=== PATIENT | female | born 1955 | race Caucasian/White ===

== ENCOUNTER 2018-11-30 13:16 | Inpatient (IN) | payer MEDICARE, MEDICAID ==
--- NOTE | 2018-11-30 13:35 | ED ---
Psychiatric Complaint - HPI Summary HPI Summary: Pt is a 63 y/o female brought in by police on a 945 who presents to the ED c/o possible SI. She was sent here by her therapist, however no information was given by the therapist or police regarding the reason for transport to the ED. Pt is tearful and repeats I didnt do anything wrong. As per pt she isnt coping with various medical and personal issues in her life. Her therapist felt like she needed an evaluation because she made a mistake and said something wrong to her therapist. Pt denies any SI or HI. She states she has not eaten today but denies any nausea. Pt has multiple personalities and she states these have never been figured out in therapy. As per note from pts therapist, pt voiced SI to both her and the pts daughter. She has a hx of SI and self-harm, however she has no prior suicide attempts. Pts daughter will come to the ED. She takes Xanax PRN. She was hospitalized for psychiatric reasons on 01/28/18. As per medical records the pt has a difficult time with the activities of daily living. PMHx OCD, dissociative identity disorder, PTSD, somatization disorder, panic attacks. Pt is a level 5 caveat due to her mental status. - History Of Current Complaint Chief Complaint: EDMentalHealth Time Seen by Provider: 11/30/18 13:26 Hx Obtained From: Patient, Medical Records Hx From Patient Unobtainable Due To: Other - Mental status Onset/Duration: Gradual Onset, Still Present Timing: Constant Aggravating Factor(s): Nothing Alleviating Factor(s): Nothing Associated Signs And Symptoms: Positive: Appetite Change - not eating today Related History: Positive For: Prior Psychiatric Issues Has Suicidal: Denies: Thoughts, Has Prior Attempt(s) Has Homicidal: Denies: Thoughts - Allergies/Home Medications Allergies/Adverse Reactions: Allergies Allergy/AdvReac Type Severity Reaction Status Date / Time acetaminophen [From Percocet] Allergy Unknown Verified 11/30/18 14:08 Reaction Details amitriptyline [From Elavil] Allergy Unknown Verified 11/30/18 13:50 Reaction Details azithromycin [From Zithromax] Allergy Rash Verified 11/30/18 13:54 bupropion Allergy Hives Verified 11/30/18 14:03 [From Wellbutrin SR] buspirone [From BuSpar] Allergy Unknown Verified 11/30/18 13:54 Reaction Details cefuroxime Allergy Eyes Verified 11/30/18 14:08 Itchy/Swollen/Red/Watery chondroitin sulfate A Allergy Hives Verified 11/30/18 13:58 [From Osteo Bi-Flex] citalopram [From Celexa] Allergy Unknown Verified 11/30/18 14:08 Reaction Details codeine Allergy Hives Verified 11/30/18 14:07 dexlansoprazole Allergy Nausea Verified 11/30/18 13:49 [From Dexilant] divalproex sodium Allergy Unknown Verified 11/30/18 14:08 [From Depakote] Reaction Details doxycycline Allergy Unknown Verified 11/30/18 14:05 Reaction Details duloxetine [From Cymbalta] Allergy Hives Verified 11/30/18 14:07 erythromycin base Allergy Unknown Verified 11/30/18 14:07 Reaction Details escitalopram [From Lexapro] Allergy Itching Verified 11/30/18 13:57 esomeprazole [From Nexium] Allergy Stomach Verified 11/30/18 13:58 Cramps fluoxetine [From Prozac] Allergy Hives Verified 11/30/18 14:08 glucosamine Allergy Hives Verified 11/30/18 13:58 [From Osteo Bi-Flex] guaifenesin [From Mucinex] Allergy Nausea Verified 11/30/18 13:58 methocarbamol [From Robaxin] Allergy Hives Verified 11/30/18 14:01 metronidazole Allergy Unknown Verified 11/30/18 14:05 Reaction Details mometasone furoate Allergy Difficulty Verified 11/30/18 14:12 [From Asmanex Twisthaler] Swallowing nalbuphine [From Nubain] Allergy See Comment Verified 11/30/18 13:56 nefazodone [From Serzone] Allergy Hives Verified 11/30/18 13:57 nitrofurantoin Allergy Unknown Verified 11/30/18 14:07 [From Macrobid] Reaction Details norfloxacin [From Noroxin] Allergy Unknown Verified 11/30/18 14:05 Reaction Details NSAIDS (Non-Steroidal Allergy Stomach Verified 11/30/18 13:52 Anti-Inflamma Cramps oxycodone [From Percocet] Allergy Unknown Verified 11/30/18 14:08 Reaction Details paroxetine [From Paxil] Allergy Agitation Verified 11/30/18 14:05 Penicillins Allergy Unknown Verified 11/30/18 14:05 Reaction Details prednisone Allergy See Comment Verified 11/30/18 14:05 pseudoephedrine Allergy See Comment Verified 11/30/18 13:52 [From Sudafed] ranitidine Allergy Dizziness Verified 11/30/18 14:12 rofecoxib [From Vioxx] Allergy Edema Verified 11/30/18 13:50 sertraline [From Zoloft] Allergy Shakes Verified 11/30/18 13:54 Sulfa (Sulfonamide Allergy Unknown Verified 11/30/18 14:07 Antibiotics) Reaction Details tramadol Allergy See Comment Verified 11/30/18 13:59 trimethoprim Allergy Unknown Verified 11/30/18 14:05 Reaction Details venlafaxine [From Effexor] Allergy Agitation Verified 11/30/18 13:55 amitrityline Allergy See Comment Uncoded 11/30/18 14:09 glucosamine Allergy Unknown Uncoded 11/30/18 14:01 Reaction Details probiotics Allergy Rash Uncoded 11/30/18 13:50 properidil Allergy See Comment Uncoded 11/30/18 13:55 Home Medications: Home Medications ALPRAZolam TAB* [Xanax TAB*] 0.5 - 1 mg PO TID PRN 11/30/18 [History Confirmed 11/30/18] Acetaminophen [Tylenol Extra Strength] 1,000 mg PO Q6HR PRN 11/30/18 [History Confirmed 11/30/18] Carboxymethyl/Glycerin/Poly80 [Refresh Optive Advanced] 2 drop BOTH EYES BID [History Confirmed 11/30/18] Cholecalciferol (Vitamin D3) [Vitamin D3] 2,000 unit PO QAM 11/30/18 [History Confirmed 11/30/18] Docusate CAP* [Colace Cap*] 100 mg PO DAILY 11/30/18 [History Confirmed 11/30/18 ] Fluticasone NASAL SPRAY 50MCG* [Flonase NASAL SPRAY 50MCG*] 1 spray BOTH NARES DAILY PRN 11/30/18 [History Confirmed 11/30/18] Hemorrhoidal SUPP* [Preparation H Supp*] 1 supp ME BID PRN 11/30/18 [History Confirmed 11/30/18] LoraTADine TAB(NF) [Claritin 10 MG TAB(NF)] 10 mg PO DAILY PRN 11/30/18 [ History Confirmed 11/30/18] Mometasone Furoate 0.1 % TOPICAL BID 11/30/18 [History Confirmed 11/30/18] Polyethylene Glycol 3350* [Miralax*] 17 gm PO DAILY 11/30/18 [History Confirmed 11/30/18] Promethazine TAB* [Phenergan TAB*] 12.5 - 25 mg PO Q6H PRN 11/30/18 [History Confirmed 11/30/18] Silver Sulfadiazine 1%* [SILVadine 1%*] 1 applic TOPICAL BID PRN 11/30/18 [ History Confirmed 11/30/18] diPHENhydraMINE 2% CREAM(NF) [Benadryl 2% CREAM (NF)] 1 applic TOPICAL TID PRN 11/30/18 [History Confirmed 11/30/18] diPHENhydraMINE PO* [Benadryl PO 25 MG TAB*] 25 mg PO DAILY PRN 11/30/18 [ History Confirmed 11/30/18] hydrOXYzine HCL TAB* [Atarax 25 MG TAB*] 25 mg PO Q8HR PRN 11/30/18 [History Confirmed 11/30/18] PMH/Surg Hx/FS Hx/Imm Hx GI History: Reports: Hx Irritable Bowel, Other GI Disorders - chronic constipation Musculoskeletal History: Reports: Hx Osteoporosis, Other Musculoskeletal History - Lumbar disc issues EENT History: Reports: Hx Deafness, Hx Hearing Problem Psychiatric History: Reports: Hx Panic Disorder, Other Psychiatric Issues/ Disorders - OCD, dissociative identity disorder, PTSD, somatization disorder, SI Denies: Hx Suicide Attempt Infectious Disease History: No Infectious Disease History: Denies: Traveled Outside the [place] in Last 30 Days - Family History Known Family History: Positive: Unknown - LEVEL 5 CAVEAT - mental status - Social History Alcohol Use: Unknown Smoking Status (MU): Unknown if Ever Smoked Review of Systems Negative: Nausea Positive: Other - supposed SI, NEGATIVE: HI All Other Systems Reviewed And Are Negative: No Physical Exam - Summary Physical Exam Summary: Appearance: Well appearing, no pain distress Skin: warm, dry, reflects adequate perfusion Head/face: normal Eyes: EOMI, JUAN ENT: mucous membranes moist Neck: supple, non-tender Respiratory: CTA, breath sounds present Cardiovascular: RRR, pulses symmetrical Abdomen: non-tender, soft Bowel Sounds: present Musculoskeletal: normal, strength/ROM intact Neuro: normal, sensory motor intact, A&Ox3 Psych: detached, pressured speech but flat affect, no SI or HI, rambling speech pattern, avoids eye contact Physical exam limited by mental status - LEVEL 5 CAVEAT Triage Information Reviewed: Yes Vital Signs On Initial Exam: Initial Vitals Temp Pulse Resp BP Pulse Ox 98.6 F 86 15 124/81 98 11/30/18 13:18 11/30/18 13:18 11/30/18 13:18 11/30/18 13:18 11/30/18 13:18 Vital Signs Reviewed: Yes Completion Of Physical Exam Limited Due To: Level 5 - Mental status Diagnostics - Vital Signs Vital Signs Temp Pulse Resp BP Pulse Ox 11/30/18 13:18 98.6 F 86 15 124/81 98 - Laboratory Result Diagrams: 11/30/18 14:06 11/30/18 14:06 Lab Statement: Any lab studies that have been ordered have been reviewed, and results considered in the medical decision making process. - EKG 15:03 Cardiac Rate: NL - 86 bpm EKG Rhythm: Sinus Rhythm ST Segment: Normal Summary of EKG Findings: Baseline artifact, nl axis, nl intervals Re-Evaluation - Re-Evaluation First Eval Re-Evaluation Time: 14:00 Change: Unchanged Comment: Pt is medically cleared for a MHE. Course/Dx - Course Course Of Treatment: Nurse's notes reviewed. Patient sent on 9.45 by her therapist for psychiatric evaluation. She is medically cleared and a crisis evaluation was performed. Following this evaluation was elected that she be admitted on involuntary status to the psychiatric [facility]. - Differential Dx/Clinical Impression Differential Diagnosis/HQI/PQRI: Positive: Anxiety, Bipolar Disorder, Depression , Other - Mood disorder Provider Diagnosis: Mood disorder - Physician Notifications Discussed Care Of Patient With: Mental Health Time Discussed With Above Provider: 13:44 Instructed by Provider To: Other - Mental health evaluators have already heard about this pt and will come see the pt in the ED. At 16:00 Dr. Mccloud admits the pt involuntarily with a dx of mood disorder. Discharge - Sign-Out/Discharge Documenting (check all that apply): Patient Departure - Admit Patient Received Moderate/Deep Sedation with Procedure: No - Discharge Plan Condition: Fair Disposition: ADMITTED TO [facility] Referrals: Barbara Lomeli DO [Primary Care Provider] - - Billing Disposition and Condition Condition: FAIR Disposition: Admitted to [facility] - Attestation Statements Document Initiated by Rosie: Yes Documenting Scribe: Sravani Beck Provider For Whom Rosie is Documenting (Include Credential): Terry Jaime MD Scribe Attestation: Sravani Weinstein, scribed for Terry Jaime MD on 11/30/18 at 1703. Scribe Documentation Reviewed: Yes Provider Attestation: The documentation as recorded by the Sravani ritchie accurately reflects the service I personally performed and the decisions made by , Terry Jaime MD Status of Scribe Document: Viewed
--- OUTSIDE RECORDS SUMMARY | 2018-11-30 13:43 | XMS REPORT ---
:1955 Author Organization [facility] Address [address] [place] [address] Care Team Providers Name Role Phone Yung Hemphill Unavailable Unavailable PROBLEMS Unknown Problems ALLERGIES No Information ENCOUNTERS Encounter Location Date Diagnosis [address] Apr, [address] Apr, [address] [facility] [address] [place], [place] Oct, [address] Oct, [address] Aug, [address] Aug, [address], [place] [address] IMMUNIZATIONS No Known Immunizations SOCIAL HISTORY Never Assessed REASON FOR REFERRAL FUNCTIONAL STATUS PLAN OF CARE VITAL SIGNS MEDICATIONS Unknown Medications PROCEDURES Procedure Date Ordered Result Body Site RESIN COMPOS - 1 SURFACE POSTERIOR Nov 02, 2018 RESIN COMPOS - 1 SURFACE POSTERIOR Nov 02, 2018 RESIN COMPOS - 1 SURFACE POSTERIOR Nov 02, 2018 RESIN COMPOS - 1 SURFACE POSTERIOR Nov 02, 2018 RESIN COMPOS - 1 SURFACE POSTERIOR Nov 02, 2018 RESULTS No Results REASON FOR VISIT 4-V,12-V,30-V Insurance Providers [facility] Member Patient Patient Patient Patient Patient Subscriber Subscriber Subscriber Group Insurance Plan Plan Plan Plan ID Relationship Address Phone Name Date of ID Name Date of No Type Insurance Insurance Insurance Coverage to Subscriber Address Phone Name Dates Case [phone] Case self Thalia [id number] Management [place] [address] [facility] [address] Community Medicaid [phone] Medicaid self Thalia [id number] [facility] [address] [place] [address] Medicare National [phone] Medicare self Thalia [id number] PPS Government 41 PPS [facility] Services [address] [facility] [id number] Medicaid [phone] Medicaid self Th[place] [id number] [facility] [address] [facility] Time [address] Time Clinic Clinic MEDICAL (GENERAL) HISTORY Type Description Date Medical History Hearing loss both ears Medical History Low Blood pressure Medical History Anxiety Medical History Vitamin D3 Deficiency Medical History Sinus issues Medical History PTSD Medical History Disociative Identity Disorder Medical History SomatizationDisorder Medical History Irritable Bowel Syndrome Medical History Lumbar Disc Disease Medical History Chronic Constipation Medical History Osteoporosis
--- OUTSIDE RECORDS SUMMARY | 2018-11-30 13:43 | XMS REPORT ---
:1955 Author Organization [facility] Address [address] [place] [address] Care Team Providers Name Role Phone Yung Hemphill Unavailable Unavailable PROBLEMS Unknown Problems ALLERGIES No Information ENCOUNTERS Encounter Location Date Diagnosis [address] Apr, [address] Apr, [address] [facility] [address] [place], [place] Oct, [address] Oct, [address] Aug, [address] Aug, [address], [place] [address] IMMUNIZATIONS No Known Immunizations SOCIAL HISTORY Never Assessed REASON FOR REFERRAL FUNCTIONAL STATUS PLAN OF CARE VITAL SIGNS MEDICATIONS Unknown Medications PROCEDURES No Known procedures RESULTS No Results REASON FOR VISIT Possible support needs. Insurance Providers [facility] Health Member Patient Patient Patient Patient Patient Subscriber Subscriber Subscriber Group Insurance Plan Plan Plan Plan ID Relationship Address Phone Name Date of ID Name Date of No Type Insurance Insurance Insurance Coverage to Subscriber Address Phone Name Dates Case [phone] Case self Thalia [id number] Management [place] [address] [facility] [address] Community Medicaid [phone] Medicaid self Thalia [id number] [facility] [address] [place] Time [address] Time Clinic Clinic Medicare National [phone] Medicare self Thalia [id number] PPS Government 41 PPS [place] [address] [facility] [id number] Medicaid [phone] Medicaid self Th[place] [id number] [facility] [address] [place] [address] MEDICAL (GENERAL) HISTORY Type Description Date Medical [...]
[2018-11-30 14:12] LABS: ABS Basophils 0 10^3/ul (0-0.2); ABS Eosinophils 0 10^3/ul (0-0.6); ABS Lymphocytes 0.9 10^3/ul (1.0-4.8); ABS Monocytes 0.3 10^3/ul (0-0.8); ABS Neutrophils 3.3 10^3/ul (1.5-7.7); ABS Nucleated RBC 0 10^3/ul; Eosinophil % 0.3 %; Hematocrit 45 % (35-47); Mean Corpuscular HGB Conc 34 g/dl (31-36); Mean Corpuscular Hemoglobin 30 pg (27-31); Mean Corpuscular Volume 89 fL (80-97); Mean Platelet Volume 7.5 fL (7.4-10.4); Nucleated Red Blood Cells % 0; Platelet Count 325 10^3/ul (150-450); Red Blood Count 5.04 10^6/ul (4.00-5.40); Red Cell Distribution Width 13 % (10.5-15); White Blood Count 4.6 10^3/ul (3.5-10.8)
[2018-11-30 14:30] LABS: ALT 16 U/L (7-52); AST 16 U/L (13-39); Albumin 4.6 g/dL (3.2-5.2); Albumin/Globulin Ratio 1.8 (1-3); Alkaline Phosphatase 68 U/L (34-104); Anion Gap 7 mmol/L (2-11); BUN/Creatinine Ratio 26.9 (8-20); Blood Urea Nitrogen 18 mg/dL (6-24); CO2 Carbon Dioxide 30 mmol/L (22-32); Calcium 9.6 mg/dL (8.6-10.3); Chloride 102 mmol/L (101-111); EGFR African American 108.3 (>60); EGFR Non-African American 89.5 (>60); Globulin 2.5 g/dL (2-4); Glucose 95 mg/dL (70-100); Potassium 3.9 mmol/L (3.5-5.0); Sodium 139 mmol/L (135-145); Total Protein 7.1 g/dL (6.4-8.9)
[2018-11-30 14:56] LABS: Acetaminophen < 15 mcg/mL; Alcohol < 10 mg/dL (<10); Salicylate < 2.50 mg/dL (<30)
[2018-11-30] MEDS ORDERED: hydrOXYzine HCL TAB* 50 MG PO PRN (17:51)
[2018-12-01 08:09] LABS: HDL Cholesterol 79.9 mg/dL
[2018-12-01] MEDS ORDERED: LORazepam TAB(*) 1 MG PO ONE (08:41)
[2018-12-01] MEDS ORDERED: LORazepam TAB(*) 1 MG ONE (08:44)
[2018-12-01] MEDS ORDERED: Cetirizine* 10 MG TAB PO PRN (12:28)
[2018-12-01] MEDS ORDERED: diPHENhydraMINE PO* 25 MG PO PRN (12:28)
[2018-12-01] MEDS ORDERED: hydrOXYzine HCL TAB* 25 MG PO PRN ×2 (12:28→14:01)
[2018-12-01] MEDS ORDERED: Fluticasone NASAL SPRAY 50MCG* 16 gm SPRAY BTL BOTH NARES PRN (12:28)
[2018-12-01] MEDS ORDERED: MOMETASONE FUROATE 0.1% TOPICAL SCH (12:45)
[2018-12-01] MEDS: Docusate CAP* 100 MG PO SCH (13:47)
[2018-12-01] MEDS: Polyethylene Glycol 3350* 17 GM PACKET PO SCH (13:48)
[2018-12-01] MEDS: Cholecalciferol TAB* 1000 UNITS PO SCH (13:49)
[2018-12-01 15:03] LABS: Vitamin D Total 25(OH) 52.5 ng/mL (20-50)
[2018-12-01] MEDS: Carboxymethylcellulose/Glyceri 10 ML OPHTH.GEL lubricant eye gel BOTH EYES SCH ×2 (16:07→21:04)
--- NOTE | 2018-12-01 16:17 | PN ---
BSU: Group Therapy Note - Service Type Service Type: [id number] Group Psychotherapy - Medication Education Group: Patient attended group and presented with flat affect that did not vary with discussion. Although responsive to direct prompts to respond to questions, patient did not engage in spontaneous conversation.
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
[2018-12-01] MEDS: clonazePAM TAB(*) 1 MG PO SCH (21:06)
[2018-12-01] MEDS: Triamcinolone 0.025% OINT * 15 GM TUBE TOPICAL SCH (21:09)
[2018-12-02] MEDS: clonazePAM TAB(*) 1 MG PO SCH ×3 (08:26→19:32)
[2018-12-02] MEDS: Cholecalciferol TAB* 1000 UNITS PO SCH (08:26)
[2018-12-02] MEDS: Polyethylene Glycol 3350* 17 GM PACKET PO SCH (08:27)
[2018-12-02] MEDS: Docusate CAP* 100 MG PO SCH (08:27)
[2018-12-02] MEDS: Carboxymethylcellulose/Glyceri 10 ML OPHTH.GEL lubricant eye gel BOTH EYES SCH ×2 (08:29→20:49)
[2018-12-02] MEDS: Triamcinolone 0.025% OINT * 15 GM TUBE TOPICAL SCH ×2 (08:31→20:49)
--- NOTE | 2018-12-02 11:38 | PN ---
BSU: Group Therapy Note - Service Type Service Type: 52076 Group Psychotherapy - Cognitive Behavioral Group Therapy ( CBT):Patient was attentive and participatory in CBT programming this morning, and remained in good behavioral control. Patient expressed positive insights regarding relevant treatment interventions and goals.
--- NOTE | 2018-12-02 16:22 | PN ---
Subjective - Subjective Date of Service: 12/02/18 Service Type: 51579 Hosp care 35 min high complexity Subjective: Patient presents as anxious and expresses dissatisfaction with options for clothing and food. She inquires about need for hospitalization in that she "never said the word suicide." Relief Worker attempts to discuss problematic symptoms. She is difficult to redirect and perseverates on doing things wrong or upsetting others. During visiting hours, her daughter arrives and patient's speech is circumstantial about need for clothing that fits perfectly. Patient requests assessment of mark area due to c/o scant blood on toilet paper. With female staff present, functional tester typewriters observes external hemorrhoid. Patient appears malnourished as evidenced by prominent bony structures. Objective - Appearance Appearance: Thin Framed Dysmorphic Features: Yes Hygiene: Normal Grooming: Well Kept - Behavior Psychomotor Activities: Normal Exhibits Abnormal Movement: Yes - Attitude and Relatedness Attitude and Relatedness: Guarded Eye Contact: Fair - Speech Quality: Unpressured Latencies: Normal Quantity: Copious - Mood Patient's Decription of Mood: "Okay" - Affect Observed Affect: Tense Affect Consistent with: Dysphoria - Thought Process Patient's Thought Process: Circumstantial, Over Inclusive Thought Content: No Passive Wish, No Suicidal Planning, No Homicidal Ideation, No Paranoid Ideation - Sensorium Experiencing Hallucinations: No, Sensorium is Clear Type of Hallucinations: Visual: No, Auditory: No, Command: No - Level of Consciousness Level of Consciousness: Alert Orientation: Yes Intact, Yes Orientated to Time, Yes Orientated to Place, Yes Orientated to Person - Impulse Control Impulse Control: Poor - Insight and Judgement Insight and Judgement: Impaired - Group Participation Particating in Group Activities: Yes - Medication Management Medication Management Adherence: Partial Assessment - Assessment Merits Inpatient Hospitalization: For Immediate Safety, For Stabilization, To Initiate Treatment, For Ongoing Evaluation Inpatient DSM-V Dx: F42.8 Clinical Impression: 63yo wf with hx of OCD and trauma who presents to ED after appt with outpatient therapist due to suicidal statements. 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 She would likely benefit from serotonergic medication but is unwilling to take these at this time. Plan - Plan Treatment Plan: Name: SHANNAN SCHMIDT Birthdate: 1955 [id number] Continued Medication Management: Different Medication Medications: Current Medications Carboxymethylcellulose/Glycerin (Refresh Optive Gel Eye Gel) 1 applic BOTH EYES BID [facility] Last Admin: 12/02/18 08:29 Dose: 1 applic Cetirizine HCl (Zyrtec*) 10 mg PO DAILY PRN PRN Reason: Allergy Symptoms Cholecalciferol (Vitamin D Tab*) 2,000 units PO QAM [facility] Last Admin: 12/02/18 08:26 Dose: 2,000 units Clonazepam (Klonopin Tab(*)) 1 mg PO BID [facility] Last Admin: 12/02/18 08:54 Dose: Not Given Diphenhydramine HCl (Benadryl Po*) 25 mg PO DAILY PRN PRN Reason: ITCHING Docusate Sodium (Colace Cap*) 100 mg PO DAILY [facility] Last Admin: 12/02/18 08:27 Dose: 100 mg Fluticasone Propionate (Flonase Nasal [place] 50mcg*) 1 spray BOTH NARES DAILY PRN PRN Reason: CONGESTION Hard Fat/Phenylephrine (Preparation H Supp*) 1 supp [place] BID PRN PRN Reason: PAIN/INFLAMMATION Hydroxyzine HCl (Atarax Tab*) 25 mg PO Q4H PRN PRN Reason: ANXIETY Mirtazapine (Remeron Tab*) 15 mg PO BEDTIME [facility] Polyethylene Glycol/Electrolytes (Miralax*) 17 gm PO DAILY [facility] Last Admin: 12/02/18 08:27 Dose: Not Given Triamcinolone Acetonide (Triamcinolone 0.025% Oint *) 0.1 applic TOPICAL BID [facility] Last Admin: 12/02/18 08:31 Dose: Not Given - Discharge Plan Discharge Plan: Inpatient Hospitalization
[2018-12-02] MEDS: Hemorrhoidal SUPP PR PRN (16:52)
[2018-12-02] MEDS: Mirtazapine TAB* 15 MG PO SCH (19:32)
[2018-12-03] MEDS: Carboxymethylcellulose/Glyceri 10 ML OPHTH.GEL lubricant eye gel BOTH EYES SCH ×2 (07:38→20:57)
[2018-12-03] MEDS: clonazePAM TAB(*) 1 MG PO SCH ×2 (07:38→19:46)
[2018-12-03] MEDS: Polyethylene Glycol 3350* 17 GM PACKET PO SCH (07:42)
[2018-12-03] MEDS: Triamcinolone 0.025% OINT * 15 GM TUBE TOPICAL SCH ×2 (08:06→20:57)
[2018-12-03] MEDS: Docusate CAP* 100 MG PO SCH (08:06)
[2018-12-03] MEDS: CHOLECALCIFEROL PO SCH (11:13)
[2018-12-03] MEDS: Cholecalciferol TAB* 1000 UNITS PO SCH (11:25)
--- NOTE | 2018-12-03 11:52 | PN ---
BSU: Group Therapy Note - Service Type Service Type: [id number] Group Psychotherapy - Cognitive Behavioral Group Therapy ( CBT):Patient was attentive and participatory in CBT programming this morning, and remained in good behavioral control. Patient expressed positive insights regarding relevant treatment interventions and goals.
[2018-12-03] MEDS ORDERED: Ibuprofen TAB* 600 MG PO PRN (11:59)
--- NOTE | 2018-12-03 12:00 | PN ---
Subjective - Subjective Service Type: [id number] Hosp care 25 min moderate complexity Subjective: Patient reports yesterday and last evening were difficult due to panic attacks. She is overinclusive and circumstantial about food options. She inquires about being able to use the comfort room and to be allowed candy. Informed of treatment team decision to remain on 15min observation due to near fall last evening. She goes into great detail describing precursors of nausea and vomiting r/t to eating meatloaf. She endorses dissociation. Discussed treatment recommendations, including mirtazapine and clonazepam. Patient requested information about mirtazapine and was given pt education information. Objective - Appearance Appearance: Well Developed/Nourished, Thin Framed Dysmorphic Features: Yes Hygiene: Normal Grooming: Well Kept - Behavior Psychomotor Activities: Normal Exhibits Abnormal Movement: No - Attitude and Relatedness Attitude and Relatedness: Cooperative Eye Contact: Fair - Speech Quality: Unpressured Latencies: Normal Quantity: Appropriate - Mood Patient's Decription of Mood: "Okay" - Affect Observed Affect: Depressed Affect Consistent with: Dysphoria - Thought Process Patient's Thought Process: Circumstantial, Over Inclusive Thought Content: No Passive Wish, No Suicidal Planning, No Homicidal Ideation, No Paranoid Ideation - Sensorium Experiencing Hallucinations: No, Sensorium is Clear Type of Hallucinations: Visual: No, Auditory: No, Command: No - Level of Consciousness Level of Consciousness: Alert Orientation: Yes Intact, Yes Orientated to Time, Yes Orientated to Place, Yes Orientated to Person - Impulse Control Impulse Control: Poor - Insight and Judgement Insight and Judgement: Poor - Group Participation Particating in Group Activities: Yes - Medication Management Medication Management Adherence: Yes Assessment - Assessment Merits Inpatient Hospitalization: For Immediate Safety, For Stabilization Inpatient DSM-V Dx: F42.8 Clinical Impression: 63yo wf with hx of OCD and trauma who presents to ED after appt with outpatient therapist due to suicidal statements. 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 She merits hospitalization for immediate safety and stabilization. Plan - Plan Treatment Plan: Name: SHANNAN SCHMIDT Birthdate: 1955 [id number] continue acute intensive psychiatric treatment. continue trial of mirtazapine and clonazepam. utilize hydroxyzine prn anxiety. request another visit with stacker straightener. discharge planning to include outpatient providers and family per patient consent. Continued Medication Management: Start Medication Medications: Current Medications Carboxymethylcellulose/Glycerin (Refresh Optive Gel Eye Gel) 1 applic BOTH EYES BID [facility] Last Admin: 12/03/18 07:38 Dose: Not Given Cetirizine HCl (Zyrtec*) 10 mg PO DAILY PRN PRN Reason: Allergy Symptoms Clonazepam (Klonopin Tab(*)) 1 mg PO BID [facility] Last Admin: 12/03/18 07:38 Dose: 1 mg Diphenhydramine HCl (Benadryl Po*) 25 mg PO DAILY PRN PRN Reason: ITCHING Docusate Sodium (Colace Cap*) 100 mg PO DAILY [facility] Last Admin: 12/03/18 08:06 Dose: Not Given Fluticasone Propionate (Flonase Nasal [place] 50mcg*) 1 spray BOTH NARES DAILY PRN PRN Reason: CONGESTION Hard Fat/Phenylephrine (Preparation H Supp*) 1 supp [place] BID PRN PRN Reason: PAIN/INFLAMMATION Last Admin: 12/02/18 16:52 Dose: 1 supp Hydroxyzine HCl (Atarax Tab*) 25 mg PO Q4H PRN PRN Reason: ANXIETY Ibuprofen (Motrin Tab*) 600 mg PO Q4HR PRN PRN Reason: HEADACHE/PAIN Mirtazapine (Remeron Tab*) 15 mg PO BEDTIME [facility] Last Admin: 12/02/18 19:32 Dose: 15 mg Pto Nf Med* Cholecalciferol Gummes 1000 Iu Each 1 dose PO QAM [facility] Last Admin: 12/03/18 11:13 Dose: 1 dose Polyethylene Glycol/Electrolytes (Miralax*) 17 gm PO DAILY PRN PRN Reason: CONSTIPATION Triamcinolone Acetonide (Triamcinolone 0.025% Oint *) 0.1 applic TOPICAL BID [facility] Last Admin: 12/03/18 08:06 Dose: Not Given - Discharge Plan Discharge Plan: Inpatient Hospitalization Outpatient Program: [facility]
[2018-12-03] MEDS: Mirtazapine TAB* 15 MG PO SCH (19:46)
[2018-12-04] MEDS: Docusate CAP* 100 MG PO SCH (07:31)
[2018-12-04] MEDS: clonazePAM TAB(*) 1 MG PO SCH ×2 (07:31→19:56)
[2018-12-04] MEDS: Carboxymethylcellulose/Glyceri 10 ML OPHTH.GEL lubricant eye gel BOTH EYES SCH ×2 (07:32→19:57)
[2018-12-04] MEDS: Triamcinolone 0.025% OINT * 15 GM TUBE TOPICAL SCH ×2 (07:34→19:57)
[2018-12-04] MEDS: CHOLECALCIFEROL PO SCH (07:34)
[2018-12-04] MEDS: Polyethylene Glycol 3350* 17 GM PACKET PO PRN (07:36)
[2018-12-04] MEDS: Hemorrhoidal SUPP PR PRN (18:40)
[2018-12-04] MEDS: Mirtazapine TAB* 15 MG PO SCH (19:57)
[2018-12-05] MEDS: Polyethylene Glycol 3350* 17 GM PACKET PO PRN (07:14)
[2018-12-05] MEDS: clonazePAM TAB(*) 1 MG PO SCH ×2 (07:14→19:49)
[2018-12-05] MEDS: Docusate CAP* 100 MG PO SCH (07:14)
[2018-12-05] MEDS: CHOLECALCIFEROL PO SCH (07:15)
[2018-12-05] MEDS: Triamcinolone 0.025% OINT * 15 GM TUBE TOPICAL SCH ×2 (07:51→19:50)
[2018-12-05] MEDS: Carboxymethylcellulose/Glyceri 10 ML OPHTH.GEL lubricant eye gel BOTH EYES SCH ×2 (07:51→19:50)
[2018-12-05] MEDS ORDERED: Magnesium CITRATE* 300 ML BTL PO PRN (15:46)
--- NOTE | 2018-12-05 18:44 | PN ---
Subjective - Subjective Date of Service: 12/04/18 Service Type: [id number] Hosp care 25 min moderate complexity Subjective: Thalia reports of feeling drugged up despite the fact that she has been walking around without any problem. Says Remeron is the problem and she likes Klonopine which helps her with panic attacks. Talked a lot about kind of food she needs not the ones professionals recommends. Denies psychosis, SI or HI. Objective - Appearance Appearance: Thin Framed Dysmorphic Features: No Hygiene: Normal Grooming: Fairly Well Kept - Behavior Psychomotor Activities: Abnormal-Decreased Exhibits Abnormal Movement: No - Attitude and Relatedness Attitude and Relatedness: Needy Eye Contact: Good - Speech Quality: Unpressured Latencies: Long Quantity: Appropriate - Mood Patient's Decription of Mood: "Fine" - Affect Observed Affect: Depressed Affect Consistent with: Dysphoria - Thought Process Patient's Thought Process: Coherent, Circumstantial Thought Content: No Passive Wish, No Suicidal Planning, No Homicidal Ideation, No Paranoid Ideation - Sensorium Experiencing Hallucinations: No, Sensorium is Clear Type of Hallucinations: Visual: No, Auditory: No, Command: No - Level of Consciousness Level of Consciousness: Alert Orientation: Yes Intact, Yes Orientated to Time, Yes Orientated to Place, Yes Orientated to Person - Impulse Control Impulse Control: Intact - Insight and Judgement Insight and Judgement: Impaired - Group Participation Particating in Group Activities: No - Medication Management Medication Management Adherence: Partial Assessment - Assessment Merits Inpatient Hospitalization: For Immediate Safety, For Stabilization, For Ongoing Evaluation, Pending Safe DC Plan Inpatient DSM-V Dx: F42.8 Clinical Impression: 63yo wf with hx of OCD and trauma who presents to ED after appt with outpatient therapist due to suicidal statements. 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 She merits hospitalization for immediate safety and stabilization. Plan - Plan Treatment Plan: Name: THALIA SCHMIDT Birthdate: 1955 [id number] continue acute intensive psychiatric treatment. continue trial of mirtazapine and clonazepam. utilize hydroxyzine prn anxiety. request another visit with gyroscope technician. discharge planning to include outpatient providers and family per patient consent. Continued Medication Management: Continue Outpt Medication Medications: Current Medications Carboxymethylcellulose/Glycerin (Refresh Optive Gel Eye Gel) 1 applic BOTH EYES BID [facility] Last Admin: 12/05/18 07:51 Dose: Not Given Cetirizine HCl (Zyrtec*) 10 mg PO DAILY PRN PRN Reason: Allergy Symptoms Clonazepam (Klonopin Tab(*)) 1 mg PO BID [facility] Last Admin: 12/05/18 07:14 Dose: 1 mg Diphenhydramine HCl (Benadryl Po*) 25 mg PO DAILY PRN PRN Reason: ITCHING Docusate Sodium (Colace Cap*) 100 mg PO DAILY [facility] Last Admin: 12/05/18 07:14 Dose: 100 mg Fluticasone Propionate (Flonase Nasal [place] 50mcg*) 1 spray BOTH NARES DAILY PRN PRN Reason: CONGESTION Hard Fat/Phenylephrine (Preparation H Supp*) 1 supp [place] BID PRN PRN Reason: PAIN/INFLAMMATION Last Admin: 12/04/18 18:40 Dose: 1 supp Hydroxyzine HCl (Atarax Tab*) 25 mg PO Q4H PRN PRN Reason: ANXIETY Ibuprofen (Motrin Tab*) 600 mg PO Q4HR PRN PRN Reason: HEADACHE/PAIN Magnesium Citrate (Citrate Of Magnesia*) 300 ml PO ONCE PRN PRN Reason: CONSTIPATION Last Admin: 12/05/18 16:38 Dose: 300 ml Mirtazapine (Remeron Tab*) 15 mg PO BEDTIME [facility] Last Admin: 12/04/18 19:57 Dose: Not Given Pto Nf Med* Cholecalciferol Gummes 1000 Iu Each 1 dose PO QAM [facility] Last Admin: 12/05/18 07:15 Dose: 1 dose Polyethylene Glycol/Electrolytes (Miralax*) 17 gm PO DAILY PRN PRN Reason: CONSTIPATION Last Admin: 12/05/18 07:14 Dose: 17 gm Triamcinolone Acetonide (Triamcinolone 0.025% Oint *) 0.1 applic TOPICAL BID [facility] Last Admin: 12/05/18 07:51 Dose: Not Given - Discharge Plan Discharge Plan: Outpatient [facility]
[2018-12-05] MEDS: Mirtazapine TAB* 15 MG PO SCH (19:50)
[2018-12-06] MEDS: Carboxymethylcellulose/Glyceri 10 ML OPHTH.GEL lubricant eye gel BOTH EYES SCH ×2 (08:31→20:20)
[2018-12-06] MEDS: Triamcinolone 0.025% OINT * 15 GM TUBE TOPICAL SCH ×2 (08:32→20:21)
[2018-12-06] MEDS: Docusate CAP* 100 MG PO SCH (08:33)
[2018-12-06] MEDS: CHOLECALCIFEROL PO SCH (08:34)
[2018-12-06] MEDS: clonazePAM TAB(*) 1 MG PO SCH (08:34)
[2018-12-06] MEDS: Polyethylene Glycol 3350* 17 GM PACKET PO PRN (08:36)
[2018-12-06] MEDS ORDERED: clonazePAM TAB(*) 1 MG PO PRN (13:16)
--- NOTE | 2018-12-06 14:52 | PN ---
Subjective - Subjective Date of Service: 12/06/18 Service Type: 05951 Hosp care 25 min moderate complexity Subjective: Patient presents as anxious with restricted affect. During conversation she exhibits classic cognitive distortions and is given this direct feedback. Patient is encouraged to identify emotions r/t circumstances and to practice positive affirmations. She agrees to trial mirtazapine without clonazepam to assess daytime sedation. Dining Room Cashier spoke with patient's daughter, Dominique. She reports Thalia was exceptionally anxious during their visit this weekend and that her mother was circumstantial in regards to suggestions given by freelance copywriter. Dominique states that none of this information is new and that she and other family members have tried many times to give the same suggestions. Dominique reports availability on thursday at 1pm for family meeting. Objective - Appearance Appearance: Thin Framed Dysmorphic Features: Yes Hygiene: Normal Grooming: Well Kept - Behavior Psychomotor Activities: Normal Exhibits Abnormal Movement: No - Attitude and Relatedness Attitude and Relatedness: Needy Eye Contact: Good - Speech Quality: Unpressured Latencies: Normal Quantity: Copious - Mood Patient's Decription of Mood: "Okay" - Affect Observed Affect: Depressed Affect Consistent with: Dysphoria - Thought Process Patient's Thought Process: Over Inclusive Thought Content: No Passive Wish, No Suicidal Planning, No Homicidal Ideation, No Paranoid Ideation - Sensorium Experiencing Hallucinations: No, Sensorium is Clear Type of Hallucinations: Visual: No, Auditory: No, Command: No - Level of Consciousness Level of Consciousness: Alert Orientation: Yes Intact, Yes Orientated to Time, Yes Orientated to Place, Yes Orientated to Person - Impulse Control Impulse Control: Poor - Insight and Judgement Insight and Judgement: Poor - Group Participation Particating in Group Activities: Yes - Medication Management Medication Management Adherence: Partial Assessment - Assessment Merits Inpatient Hospitalization: For Immediate Safety, For Stabilization Inpatient DSM-V Dx: F42.8 Clinical Impression: 63yo wf with hx of OCD and trauma who presents to ED after appt with outpatient therapist due to suicidal statements. 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 She merits hospitalization for immediate safety and stabilization. Plan - Plan Treatment Plan: Name: THALIA SCHMIDT Birthdate: 1955 [id number] continue acute intensive psychiatric treatment. may decrease to q30min obs and allow staff pass. continue trial of mirtazapine; change clonazepam to BID prn anxiety. discharge planning to include outpatient providers and family per patient consent. Continued Medication Management: Different Medication Medications: Current Medications Carboxymethylcellulose/Glycerin (Refresh Optive Gel Eye Gel) 1 applic BOTH EYES BID [facility] Last Admin: 12/06/18 08:31 Dose: Not Given Cetirizine HCl (Zyrtec*) 10 mg PO DAILY PRN PRN Reason: Allergy Symptoms Clonazepam (Klonopin Tab(*)) 1 mg PO BID PRN PRN Reason: ANXIETY Diphenhydramine HCl (Benadryl Po*) 25 mg PO DAILY PRN PRN Reason: ITCHING Docusate Sodium (Colace Cap*) 100 mg PO DAILY [facility] Last Admin: 12/06/18 08:33 Dose: 100 mg Fluticasone Propionate (Flonase Nasal [place] 50mcg*) 1 spray BOTH NARES DAILY PRN PRN Reason: CONGESTION Hard Fat/Phenylephrine (Preparation H Supp*) [address] BID PRN PRN Reason: PAIN/INFLAMMATION Last Admin: 12/04/18 18:40 Dose: 1 supp Hydroxyzine HCl (Atarax Tab*) 25 mg PO Q4H PRN PRN Reason: ANXIETY Ibuprofen (Motrin Tab*) 600 mg PO Q4HR PRN PRN Reason: HEADACHE/PAIN Mirtazapine (Remeron Tab*) 15 mg PO BEDTIME [facility] Last Admin: 12/05/18 19:50 Dose: Not Given Pto Nf Med* Cholecalciferol Gummes 1000 Iu Each 1 dose PO QAM [facility] Last Admin: 12/06/18 08:34 Dose: 1 dose Polyethylene Glycol/Electrolytes (Miralax*) 17 gm PO DAILY PRN PRN Reason: CONSTIPATION Last Admin: 12/06/18 08:36 Dose: 17 gm Triamcinolone Acetonide (Triamcinolone 0.025% Oint *) 0.1 applic TOPICAL BID [facility] Last Admin: 12/06/18 08:32 Dose: Not Given - Discharge Plan Discharge Plan: Inpatient Hospitalization Outpatient Program: [facility]
[2018-12-06] MEDS: Mirtazapine TAB* 15 MG PO SCH (20:19)
[2018-12-07] MEDS: Carboxymethylcellulose/Glyceri 10 ML OPHTH.GEL lubricant eye gel BOTH EYES SCH ×2 (07:50→20:05)
[2018-12-07] MEDS: CHOLECALCIFEROL PO SCH (07:51)
[2018-12-07] MEDS: Triamcinolone 0.025% OINT * 15 GM TUBE TOPICAL SCH ×2 (07:51→20:05)
[2018-12-07] MEDS: Docusate CAP* 100 MG PO SCH (07:51)
[2018-12-07] MEDS: Polyethylene Glycol 3350* 17 GM PACKET PO PRN (07:56)
--- NOTE | 2018-12-07 11:15 | PN ---
BSU: Group Therapy Note - Service Type Service Type: 80482 Group Psychotherapy - Cognitive Behavioral Group Therapy ( CBT):Patient was attentive and participatory in CBT programming this morning, and remained in good behavioral control. Patient expressed positive insights regarding relevant treatment interventions and goals.
[2018-12-07] MEDS: Mirtazapine TAB* 15 MG PO SCH (20:04)
[2018-12-08] MEDS: Carboxymethylcellulose/Glyceri 10 ML OPHTH.GEL lubricant eye gel BOTH EYES SCH ×2 (07:17→20:25)
[2018-12-08] MEDS: Polyethylene Glycol 3350* 17 GM PACKET PO PRN (07:18)
[2018-12-08] MEDS: Docusate CAP* 100 MG PO SCH (07:18)
[2018-12-08] MEDS: Triamcinolone 0.025% OINT * 15 GM TUBE TOPICAL SCH ×2 (07:19→20:25)
[2018-12-08] MEDS: [UNRECOGNIZED DRUG - OTHER] PO SCH (07:19)
--- NOTE | 2018-12-08 14:19 | PN ---
Subjective - Subjective Date of Service: 12/08/18 Service Type: 96484 Hosp care 25 min moderate complexity Subjective: Patient and her daughter, Dominique met with Rachel Campso LMSW and ad writer. We discussed treatment thus far and recommendations for ongoing outpatient treatment. Thalia agrees to coordinate with her therapist regarding a referral to [facility]. Thalia agrees to continue with current medication. We discussed ways in which Thalia and Dominique can improve communication at home, specifically with Thalia targeting one topic at a time and requesting what she wants/needs from family members. Patient is noted to appear anxious and is encouraged to identify emotions. She is validated for efforts and ability to do so. Patient requests time to process today and be discharged tomorrow. Objective - Appearance Appearance: Thin Framed Dysmorphic Features: No Hygiene: Normal Grooming: Well Kept - Behavior Psychomotor Activities: Normal Exhibits Abnormal Movement: No - Attitude and Relatedness Attitude and Relatedness: Cooperative Eye Contact: Good - Speech Quality: Unpressured Latencies: Normal Quantity: Appropriate - Mood Patient's Decription of Mood: "overwhelmed" - Affect Observed Affect: Good Affect Consistent with: Euthymia - Thought Process Patient's Thought Process: Coherent, Goal Directed Thought Content: No Passive Wish, No Suicidal Planning, No Homicidal Ideation, No Paranoid Ideation - Sensorium Experiencing Hallucinations: No, Sensorium is Clear Type of Hallucinations: Visual: No, Auditory: No, Command: No - Level of Consciousness Level of Consciousness: Alert Orientation: Yes Intact, Yes Orientated to Time, Yes Orientated to Place, Yes Orientated to Person - Impulse Control Impulse Control: Intact - Insight and Judgement Insight and Judgement: Fair - Group Participation Particating in Group Activities: Yes - Medication Management Medication Management Adherence: Yes Assessment - Assessment Merits Inpatient Hospitalization: For Discharge Planning Inpatient DSM-V Dx: F42.8 Clinical Impression: 63yo wf with hx of OCD and trauma who presents to ED after appt with outpatient therapist due to suicidal statements. 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 She merits hospitalization for immediate safety and stabilization. Plan - Plan Treatment Plan: Name: THALIA SCHMIDT Birthdate: 1955 [id number] continue acute intensive psychiatric treatment. may decrease to q30min obs and allow staff pass. continue trial of mirtazapine qhs and clonazepam BID prn anxiety. discharge planned for 12/09/18. Medications: Current Medications Carboxymethylcellulose/Glycerin (Refresh Optive Gel Eye Gel) 1 applic BOTH EYES BID [facility] Last Admin: 12/08/18 07:17 Dose: 1 applic Cetirizine HCl (Zyrtec*) 10 mg PO DAILY PRN PRN Reason: Allergy Symptoms Clonazepam (Klonopin Tab(*)) 1 mg PO BID PRN PRN Reason: ANXIETY Diphenhydramine HCl (Benadryl Po*) 25 mg PO DAILY PRN PRN Reason: ITCHING Docusate Sodium (Colace Cap*) 100 mg PO DAILY [facility] Last Admin: 12/08/18 07:18 Dose: Not Given Fluticasone Propionate (Flonase Nasal [place] 50mcg*) 1 spray BOTH NARES DAILY PRN PRN Reason: CONGESTION Hard Fat/Phenylephrine (Preparation H Supp*) 1 supp [place] BID PRN PRN Reason: PAIN/INFLAMMATION Last Admin: 12/04/18 18:40 Dose: 1 supp Hydroxyzine HCl (Atarax Tab*) 25 mg PO Q4H PRN PRN Reason: ANXIETY Ibuprofen (Motrin Tab*) 600 mg PO Q4HR PRN PRN Reason: HEADACHE/PAIN Mirtazapine (Remeron Tab*) 15 mg PO BEDTIME [facility] Last Admin: 12/07/18 20:04 Dose: 15 mg Gummy Vitamin D3 (1000 Units) 1 dose PO QAM [facility] Last Admin: 12/08/18 07:19 Dose: 1 dose Polyethylene Glycol/Electrolytes (Miralax*) 17 gm PO DAILY PRN PRN Reason: CONSTIPATION Last Admin: 12/08/18 07:18 Dose: 17 gm Triamcinolone Acetonide (Triamcinolone 0.025% Oint *) 0.1 applic TOPICAL BID [facility] Last Admin: 12/08/18 07:19 Dose: Not Given - Discharge Plan Discharge Plan: Outpatient Follow Up Outpatient Program: [facility]
[2018-12-08] MEDS: Mirtazapine TAB* 15 MG PO SCH (20:24)
[2018-12-09 07:42] VITALS: BP 138/83
[2018-12-09] MEDS: [UNRECOGNIZED DRUG - OTHER] PO SCH (07:49)
[2018-12-09] MEDS: Docusate CAP* 100 MG PO SCH (07:52)
[2018-12-09] MEDS: Triamcinolone 0.025% OINT * 15 GM TUBE TOPICAL SCH (07:52)
[2018-12-09] MEDS: Carboxymethylcellulose/Glyceri 10 ML OPHTH.GEL lubricant eye gel BOTH EYES SCH (07:52)
--- NOTE | 2018-12-09 11:00 | PN ---
BSU: Group Therapy Note - Service Type Service Type: [id number] Group Psychotherapy - Cognitive Behavioral Group Therapy ( CBT):Patient attended CBT programming this morning and presented with flat affect that did not vary with discussion. Although responsive to direct prompts to respond to questions, patient did not engage in spontaneous conversation.
--- NOTE | 2018-12-09 11:08 | PN ---
BSU: Group Therapy Note - Service Type Service Type: [id number] Group Psychotherapy - Group Participation Patient Participating in Group: Yes Level of Group Participation: Attentive, Participates When Prompte Relatedness to Group: Suspicious - Thalia appeared as if she felt the information was very relevant to her, although she also seemed suspicious of the message being sent. In all she was a pleasant participant to have during the group.
--- NOTE | 2018-12-09 21:31 | DS ---
CC: [facility]; Dr. Barbara Lomeli Jelena Webb * DISCHARGE SUMMARY: DATE OF ADMISSION: 11/30/18 DATE OF DISCHARGE: 12/09/18 SUPERVISING PSYCHIATRIST: Dr. Kelvin Mccloud.* (DICTATED BY CYNTHIA MURPHY NP) DISCHARGE DIAGNOSES: 1. Obsessive-compulsive disorder. 2. Somatization disorder. 3. Consider cluster C personality traits. CONDITION AT TIME OF DISCHARGE: Improved. The patient reports improvement in anxiety and is no longer voicing suicidal ideation. She denies urges for self- harm or passive wish. She has been calm and in behavioral control on the unit. She has taken medications as directed and participated fully in unit programming. She and her daughter participated in meeting yesterday to discuss treatment and discharge planning. The patient has agreed to consider referral to [facility] at [facility]. We have discussed transportation barriers and given her information about medical transportation options. The patient demonstrates improved insight in regards to somatization disorder and OCD. MENTAL STATUS EXAM: Thalia is a 63-year-old white female, thin framed, petite, and appears younger than stated age. She is wearing her own clothing and ADLs are completed. She is wearing glasses and has short brown hair. She is alert and oriented x3. Eye contact is good. Speech has normal rate, rhythm, and volume. Mood is euthymic, anxious at times with full range of affect. No abnormal psychomotor activity noted. Thought process is circumstantial in regards to discharge. Thought content is negative for SI, HI, or passive wish. She denies auditory or visual hallucinations. Thought content is positive for obsessions related to organization. Insight and judgment are fair , improved. Fund of knowledge is adequate. INSTRUCTIONS GIVEN TO PATIENT: A. Medications: 1. Clonazepam 1 mg p.o. one-half to 1 tab up to twice daily as needed for anxiety. 2. Mirtazapine 15 mg p.o. q.p.m. These were electronically prescribed. The following medications she can continue through primary care provider: 1. Vitamin D3 1000 units p.o. q.a.m. 2. Optive eye drops, 2 drops, both eyes b.i.d. 3. Topical Benadryl cream p.r.n. itching. 4. Docusate 100 mg p.o. daily. 5. Flonase 1 spray both nares daily. 6. Preparation H suppository, 1 suppository, p.r. b.i.d. p.r.n. pain/ inflammation. 7. Loratadine 10 mg daily. 8. MiraLAX 17 g p.o. daily p.r.n. constipation. 9. Triamcinolone ointment topical b.i.d. p.r.n. itching. B. Diet: Regular. C. Activity: Ambulation as tolerated. Tobacco cessation is not applicable. There are no pending labs or diagnostic studies. D. Followup care: The patient will follow up with Dr. Lomeli, her PCP, in [place] on 12/16/18. She will follow up with [facility] , her social work arrangements. She was given information about the [facility] program in [facility] as well. E. Substance use followup is not applicable. HOSPITAL COURSE: Part-A. Reason for admission: The patient presented to the emergency department after an appointment at her therapist due to suicidal ideation. Upon presentation, she was crying inconsolably and expressing fear of being punished, speaking of herself as a third person. According to collateral information, the patient voiced suicidal ideation to her grandchild, which whom she lives. She had been reporting psychotic experiences to her therapist. Part-B. Psychiatric treatment rendered: The patient was admitted to adult behavioral services unit on involuntary status. Her code status was full. She was initially placed on 15-minute checks for her safety. She was encouraged to participate in supportive milieu, individual sessions with staff, and psychoeducational groups. She acclimated quickly to the unit and was interactive with staff and peers. We changed alprazolam to a longer-acting agent, clonazepam. The patient presented as anxious and expressed dissatisfaction with options for clothing or food. She reported never saying the word suicide and minimized events leading to admission. She was noted to perseverate on doing things wrong or upsetting others. She was circumstantial in regards to physical concerns. She reported a history of side effects with every medication that she has been tried on. She spoke of somatization disorder with limited insight. Throughout the course of admission, the patient was calm and in behavioral control. She was increased to 30-minute observation and allowed to participate in a comfort room and staff pass. She demonstrated non-pharmacological treatments for anxiety and panic. She was given much education about anxiety disorders and the impact on physical health. She was increasingly receptive to therapeutic suggestions including use of mirtazapine at bedtime due to her hesitancy in regards to medications. We prioritized serotonergic medication. She reported feeling "drugged up" during the day and attributed to this medicine. Absorber Operator informed her of use of benzodiazepine such as clonazepam which has a longer half-life and is more safe to use than alprazolam. The patient agreed to trial mirtazapine without clonazepam at bedtime. She reported improvement in daytime sedation. As stated above, the patient participated in a meeting with her daughter and social work associate, Racheldamaris Montoya, and myself. We discussed recommendations to include the option of [facility] through [facility] in addition to therapy at [facility]. The patient was receptive to this information. The patient and daughter were facilitated in communication about difficult conversations at home. Both the patient and her daughter were able to identify solutions to try. The patient voiced desire to remain on the unit one more night to process the family meeting with the plan to discharge the next day. She endorsed hope and forward thinking. She identified decreased anxiety and noticing somatic issues related to anxiety. The patient was also given much information on automatic negative thoughts and positive affirmation. She did very well in programing here and benefitted from the social milieu. CYNTHIA MURPHY NP [id number]/[facility] #: [id number] JENNIFER
== END 2018-12-09 12:15 | disposition home or self-care (01) | DRG 882 ==
LOC: ED 13:16 → BSU 17:00
PROVIDERS: ADMIT Psychiatry & Neurology Psychiatry; ATTEND Psychiatry & Neurology Psychiatry
PROC: GZHZZZZ Group Psychotherapy (ICD-10-PCS; principal; 2018-12-01)
DX: F42.9 Obsessive-compulsive disorder, unspecified (principal); R45.851 Suicidal ideations; E46 Unspecified protein-calorie malnutrition; Z68.1 Body mass index [BMI] 19.9 or less, adult; M81.0 Age-related osteoporosis without current pathological fracture; K58.1 Irritable bowel syndrome with constipation; H91.93 Unspecified hearing loss, bilateral; K64.4 Residual hemorrhoidal skin tags; F45.0 Somatization disorder; F44.81 Dissociative identity disorder; F41.0 Panic disorder [episodic paroxysmal anxiety]; Z88.6 Allergy status to analgesic agent; Z88.1 Allergy status to other antibiotic agents; Z88.5 Allergy status to narcotic agent; Z88.0 Allergy status to penicillin; Z88.2 Allergy status to sulfonamides; Z88.8 Allergy status to other drugs, medicaments and biological substances
CPT/HCPCS: 36415; 80053; 80061; 80320; 80329; 82306; 83036; 84443; 85025; 90853; 93005; 99222; 99232; 99233; 99238; 99284; A9270-GY; G0480

== ENCOUNTER 2018-12-27 20:51 | Inpatient (IN) | payer MEDICARE, MEDICAID ==
--- NOTE | 2018-12-27 21:50 | ED ---
Psychiatric Complaint - HPI Summary HPI Summary: Pt is a 63 y/o F presenting to the ED with a chief psychiatric complaint accompanied by her daughter. The pt was here a couple of weeks ago where they changed her medication and she is now only on her klonopin. Since she was d/rosendo , she has been having paranoid thoughts including asking her daughter and son-in -law whats coming next and why their water is so low. Daughter reports she has not recently left the house and has been more depressed recently. The pt herself denies hearing voices, being chased by anyone, being angry, or being sad. The BREAKER HAND here told the daughter to look into borderline personality disorder as a possibility. - History Of Current Complaint Chief Complaint: [facility]entalHealth Time Seen by Provider: 12/27/18 21:11 Hx Obtained From: Patient, Family/Casing Material Weigher - daughter Onset/Duration: Gradual Onset, Lasting Weeks, Still Present Timing: Weeks Severity Initially: Moderate Severity Currently: Moderate Character: Depressed, Fearful - paranoid Aggravating Factor(s): Other - medication changes Alleviating Factor(s): Nothing Associated Signs And Symptoms: Positive: Paranoid Behavior, Social Withdrawal Related History: Positive For: Prior Psychiatric Issues - Allergies/Home Medications Allergies/Adverse Reactions: Allergies Allergy/AdvReac Type Severity Reaction Status Date / Time acetaminophen [From Percocet] Allergy Unknown Verified 11/30/18 14:08 Reaction Details amitriptyline [From Elavil] Allergy Unknown Verified 11/30/18 13:50 Reaction Details azithromycin [From Zithromax] Allergy Rash Verified 11/30/18 13:54 bupropion Allergy Hives Verified 11/30/18 14:03 [From Wellbutrin SR] buspirone [From BuSpar] Allergy Unknown Verified 11/30/18 13:54 Reaction Details cefuroxime Allergy Eyes Verified 11/30/18 14:08 Itchy/Swollen/Red/Watery chondroitin sulfate A Allergy Hives Verified 11/30/18 13:58 [From Osteo Bi-Flex] citalopram [From Celexa] Allergy Unknown Verified 11/30/18 14:08 Reaction Details codeine Allergy Hives Verified 11/30/18 14:07 dexlansoprazole Allergy Nausea Verified 11/30/18 13:49 [From Dexilant] divalproex sodium Allergy Unknown Verified 11/30/18 14:08 [From Depakote] Reaction Details doxycycline Allergy Unknown Verified 11/30/18 14:05 Reaction Details duloxetine [From Cymbalta] Allergy Hives Verified 11/30/18 14:07 erythromycin base Allergy Unknown Verified 11/30/18 14:07 Reaction Details escitalopram [From Lexapro] Allergy Itching Verified 11/30/18 13:57 esomeprazole [From Nexium] Allergy Stomach Verified 11/30/18 13:58 Cramps fluoxetine [From Prozac] Allergy Hives Verified 11/30/18 14:08 glucosamine Allergy Hives Verified 12/01/18 14:07 guaifenesin [From Mucinex] Allergy Nausea Verified 11/30/18 13:58 Lactobacillus rhamnosus GG Allergy Rash Verified 12/01/18 14:08 [From Culturelle] methocarbamol [From Robaxin] Allergy Hives Verified 11/30/18 14:01 metronidazole Allergy Unknown Verified 11/30/18 14:05 Reaction Details mometasone furoate Allergy Difficulty Verified 11/30/18 14:12 [From Asmanex Twisthaler] Swallowing nalbuphine [From Nubain] Allergy See Comment Verified 11/30/18 13:56 nefazodone [From Serzone] Allergy Hives Verified 11/30/18 13:57 nitrofurantoin Allergy Unknown Verified 11/30/18 14:07 [From Macrobid] Reaction Details norfloxacin [From Noroxin] Allergy Unknown Verified 11/30/18 14:05 Reaction Details NSAIDS (Non-Steroidal Allergy Stomach Verified 11/30/18 13:52 Anti-Inflamma Cramps oxycodone [From Percocet] Allergy Unknown Verified 11/30/18 14:08 Reaction Details paroxetine [From Paxil] Allergy Agitation Verified 11/30/18 14:05 Penicillins Allergy Unknown Verified 11/30/18 14:05 Reaction Details prednisone Allergy See Comment Verified 11/30/18 14:05 pseudoephedrine Allergy See Comment Verified 11/30/18 13:52 [From Sudafed] ranitidine Allergy Dizziness Verified 11/30/18 14:12 rofecoxib [From Vioxx] Allergy Edema Verified 11/30/18 13:50 sertraline [From Zoloft] Allergy Shakes Verified 11/30/18 13:54 Sulfa (Sulfonamide Allergy Unknown Verified 11/30/18 14:07 Antibiotics) Reaction Details tramadol Allergy See Comment Verified 11/30/18 13:59 trimethoprim Allergy Unknown Verified 11/30/18 14:05 Reaction Details venlafaxine [From Effexor] Allergy Agitation Verified 11/30/18 13:55 probiotics Allergy Rash Uncoded 11/30/18 13:50 properidil Allergy See Comment Uncoded 11/30/18 13:55 Home Medications: Home Medications Cholecalciferol (Vitamin D3) [D 1000] 2,000 unit PO DAILY 12/27/18 [History Confirmed 12/27/18] clonazePAM TAB(*) [Klonopin TAB(*)] 0.25 mg PO BID PRN MDD 2 tabs 12/27/18 [ History Confirmed 12/27/18] PMH/Surg Hx/FS Hx/Imm Hx Previously Healthy: No Cardiovascular History: Reports: Hx Hypotension GI History: Reports: Hx Irritable Bowel, Other GI Disorders - chronic constipation Musculoskeletal History: Reports: Hx Osteoporosis, Other Musculoskeletal History - Lumbar disc issues Sensory History: Reports: Hx Contacts or Glasses, Hx Deafness - Left ear, Hx Hearing Aid - Right hearing aide, Hx Hearing Problem Opthamlomology History: Reports: Hx Contacts or Glasses Neurological History: Reports: Other Neuro Impairments/Disorders - reports distant hx possible seizure r/t benzo withdrawal Psychiatric History: Reports: Hx Anxiety, Hx Eating Disorder, Hx Panic Disorder , Hx Post Traumatic Stress Disorder, Hx Inpatient Treatment, Hx Community Mental Health Tx, Other Psychiatric Issues/Disorders - OCD, dissociative identity disorder, PTSD, somatization disorder, SI Denies: Hx Suicide Attempt, Hx of Violent Episodes Against Others Infectious Disease History: No Infectious Disease History: Denies: Traveled Outside the [place] in Last 30 Days - Family History Known Family History: Positive: Unknown - LEVEL 5 CAVEAT - mental status - Social History Alcohol Use: None Hx Substance Use: No Substance Use Type: Reports: None Smoking Status (MU): Unknown if Ever Smoked Review of Systems Negative: Fever Positive: Anxious, Depressed All Other Systems Reviewed And Are Negative: Yes Physical Exam - Summary Physical Exam Summary: VITAL SIGNS: Reviewed. GENERAL: Patient is a well-developed and nourished female who is lying comfortable in the stretcher. Patient is not in any acute respiratory distress. HEAD AND FACE: No signs of trauma. No ecchymosis, hematomas or skull depressions. No sinus tenderness. EYES: PERRLA, EOMI x 2, No injected conjunctiva, no nystagmus. EARS: Hearing grossly intact. Ear canals and tympanic membranes are within normal limits. MOUTH: Oropharynx within normal limits. NECK: Supple, trachea is midline, no adenopathy, no JVD, no carotid bruit, no c- spine tenderness, neck with full ROM. CHEST: Symmetric, no tenderness at palpation LUNGS: Clear to auscultation bilaterally. No wheezing or crackles. CVS: Regular rate and rhythm, S1 and S2 present, no murmurs or gallops appreciated. ABDOMEN: Soft, non-tender. No signs of distention. No rebound no guarding, and no masses palpated. Bowel sounds are normal. EXTREMITIES: FROM in all major joints, no edema, no cyanosis or clubbing. NEURO: Alert and oriented x 3. No acute neurological deficits. Speech is normal and follows commands. SKIN: Dry and warm PSYCH: Sad, withdrawn, and tearful. Triage Information Reviewed: Yes Vital Signs On Initial Exam: Initial Vitals Temp Pulse Resp BP Pulse Ox 98.1 F 105 18 129/83 100 12/27/18 20:55 12/27/18 20:55 12/27/18 20:55 12/27/18 20:55 12/27/18 20:55 Vital Signs Reviewed: Yes Diagnostics - Vital Signs Vital Signs Temp Pulse Resp BP Pulse Ox 12/27/18 20:55 98.1 F 105 18 129/83 100 - Laboratory Result Diagrams: 12/27/18 21:50 12/27/18 21:50 Lab Statement: Any lab studies that have been ordered have been reviewed, and results considered in the medical decision making process. Course/Dx - Course Course Of Treatment: Pt is a 63 y/o F presenting to the ED with a chief psychiatric complaint accompanied by her daughter. Since she was d/rosendo from [facility] , she has been having paranoid thoughts including asking her daughter and son-in -law whats coming next and why their water is so low. Daughter reports she has not recently left the house and has been more depressed recently. Per mental health monitoring specialist, Dr. Cartwright has decided that the patient will be admitted. Dx : psychosis NOS. The patient is agreeable with this plan. - Differential Dx/Clinical Impression Provider Diagnosis: Psychosis - Physician Notifications Discussed Care Of Patient With: Hal Cartwright Time Discussed With Above Provider: 05:25 Instructed by Provider To: Other - Per mental health monitoring specialist, Dr. Cartwright has decided that the patient will be admitted. Dx: psychosis NOS. Discharge - Sign-Out/Discharge Documenting (check all that apply): Patient Departure - admit Patient Received Moderate/Deep Sedation with Procedure: No - Discharge Plan Condition: Fair Disposition: ADMITTED TO [facility] Referrals: Barbara Lomeli DO [Primary Care Provider] - - Billing Disposition and Condition Condition: FAIR Disposition: Admitted to [facility] - Attestation Statements Document Initiated by Ranjanaibe: Yes Documenting Scribe: Dasia Farah Provider For Whom Rosie is Documenting (Include Credential): Marie Simpson MD. Scribe Attestation: Dasia Weinstein, aubreeed for Marie Simpson MD. on 12/28/18 at 0619. Scribe Documentation Reviewed: Yes Provider Attestation: The documentation as recorded by the Dasia ritchie accurately reflects the service I personally performed and the decisions made by Jose F brown MD. Status of Scribe Document: Viewed
[2018-12-27 21:56] LABS: ABS Basophils 0 10^3/ul (0-0.2); ABS Eosinophils 0.1 10^3/ul (0-0.6); ABS Monocytes 0.5 10^3/ul (0-0.8); ABS Neutrophils 5.9 10^3/ul (1.5-7.7); ABS Nucleated RBC 0 10^3/ul; Eosinophil % 0.7 %; Hematocrit 44 % (33-41); Hemoglobin 14.8 g/dL (12.0-16.0); Lymphocyte % 12.9 %; Mean Corpuscular HGB Conc 33 g/dL (31-36); Mean Corpuscular Hemoglobin 30 pg (27-31); Mean Corpuscular Volume 88 fL (80-97); Mean Platelet Volume 7.4 fL (7.4-10.4); Nucleated Red Blood Cells % 0.1; Platelet Count 342 10^3/uL (150-450); Red Blood Count 5.03 10^6 /uL (3.70-4.87); Red Cell Distribution Width 13 % (10.5-15); White Blood Count 7.5 10^3/uL (3.5-10.8)
[2018-12-27] MEDS ORDERED: clonazePAM TAB(*) 0.5 MG PO ONE (22:00)
[2018-12-27 22:16] LABS: ALT 16 U/L (7-52); AST 15 U/L (13-39); Albumin 4.3 g/dL (3.2-5.2); Albumin/Globulin Ratio 1.8 (1-3); Alkaline Phosphatase 72 U/L (34-104); Anion Gap 7 mmol/L (2-11); BUN/Creatinine Ratio 22.2 (8-20); Blood Urea Nitrogen 20 mg/dL (6-24); CO2 Carbon Dioxide 32 mmol/L (22-32); Calcium 9.2 mg/dL (8.6-10.3); Chloride 103 mmol/L (101-111); EGFR Non-African American 63.7 (>60); Globulin 2.4 g/dL (2-4); Glucose 102 mg/dL (70-100); Potassium 4.4 mmol/L (3.5-5.0); Sodium 142 mmol/L (135-145); Total Protein 6.7 g/dL (6.4-8.9)
[2018-12-27 22:47] LABS: Acetaminophen < 15 mcg/mL; Alcohol < 10 mg/dL (<10); Salicylate < 2.50 mg/dL (<30)
[2018-12-27 23:02] LABS: TSH (Thyroid Stimulating Horm) 0.77 mcIU/mL (0.34-5.60)
--- NOTE | 2018-12-28 07:49 | PN ---
ED Flex Patient Progress Note Date of Service: 12/27/18 Subjective: This is a 63 year-old F who is pending admission to [facility] / transfer to another psychiatric facility / discharge to home / or being observed secondary to paranoia, psychosis. Pt. examined in room 21 at 0745. She is sitting on bed in NAD. No complaints other than wanting breakfast. On klonopin prn, pt. denies needing klonopin at this time. Objective: Vitals: Most recent vital signs documented below. General NAD, Alert and oriented x3. Laboratory: Current laboratory results documented below. Assessment: psychosis Plan: Pending admission to [facility]. Vital Signs Temp Pulse Resp BP Pulse Ox 98 F 93 16 108/79 99 12/27/18 23:03 12/27/18 23:03 12/27/18 23:03 12/27/18 23:03 12/27/18 23:03 Lab Results - Entire Visit 12/27/18 12/27/18 21:50 21:50 WBC 7.5 RBC 5.03 H Hgb 14.8 Hct 44 H MCV 88 MCH 30 MCHC 33 RDW 13 Plt Count 342 MPV 7.4 Neut % (Auto) 78.7 Lymph % (Auto) 12.9 [place] % (Auto) 7.2 Eos % (Auto) 0.7 Baso % (Auto) 0.5 Absolute Neuts (auto) 5.9 Absolute Lymphs (auto) 1.0 Absolute Monos (auto) 0.5 Absolute Eos (auto) 0.1 Absolute Basos (auto) 0 Absolute Nucleated RBC 0 Nucleated RBC % 0.1 Sodium 142 Potassium 4.4 Chloride 103 Carbon Dioxide 32 Anion Gap 7 BUN 20 Creatinine 0.90 Est GFR ( Amer) 77.0 Est GFR (Non-Af Amer) 63.7 BUN/Creatinine Ratio 22.2 H Glucose 102 H Calcium 9.2 Total Bilirubin 0.40 AST 15 ALT 16 Alkaline Phosphatase 72 Total Protein 6.7 Albumin 4.3 Globulin 2.4 Albumin/Globulin Ratio 1.8 TSH 0.77 Salicylates < 2.50 Acetaminophen < 15 Serum Alcohol < 10
[2018-12-28] MEDS ORDERED: clonazePAM TAB(*) 0.5 MG PO PRN (15:57)
[2018-12-28] MEDS ORDERED: Ibuprofen TAB* 600 MG PO PRN (15:58)
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
[2018-12-28] MEDS: risperiDONE TAB* 1 MG PO SCH (20:56)
[2018-12-28] MEDS: Polyethyl Glycol/Propylene Gly OPHTH.SOLN BOTH EYES SCH (20:56)
[2018-12-29 08:02] LABS: HDL Cholesterol 80.4 mg/dL
[2018-12-29] MEDS: Docusate CAP* 100 MG PO SCH (08:24)
[2018-12-29] MEDS: Cholecalciferol TAB* 400 UNIT PO SCH (08:24)
[2018-12-29] MEDS: Polyethylene Glycol 3350* 17 GM PACKET PO PRN (08:24)
[2018-12-29] MEDS: Vitamin THERAPEUTIC TAB PO SCH (08:25)
[2018-12-29] MEDS: Polyethyl Glycol/Propylene Gly OPHTH.SOLN BOTH EYES SCH ×3 (08:26→20:13)
--- NOTE | 2018-12-29 11:26 | PN ---
Subjective - Subjective Date of Service: 12/29/18 Service Type: [id number] Hosp care 35 min high complexity Subjective: Patient reports adequate sleep and denies untoward effects from HS risperidone. She presents as anxious and is encouraged to express her thoughts. She states worry about signing papers and not understanding legal jargon. She eludes to anxiety about technology, bank card and paying bills. She states she often receives unknown calls on her cell phone and does not agree that these could be telemarketing calls. She states concern that her daughter and family have changed things in the house, such as level of toilet water and picking up after themselves. She is convinced this is all ominous information pertaining to her. She endorses increased depression and is quick to attribute this to castillo and last admission. She states "I haven't gotten over that." Patient encouraged that she is hospitalized to improve baseline and return to her daughter's home. She goes on to express that she thinks she would do better with a pet, as in a service dog. [employer] left voicemail for daughterDominique at [phone]. Objective - General Observations Appearance: Neat Stature: Thin Posture: WNL Eye Contact: Average Behavior/Activity: WNL Assessment - Assessment Inpatient DSM-V Dx: F42.8 Clinical Impression: 63yo wf, domiciled, disabled, and living with adult daughter and her family who presents to ED with disorganized thinking, paranoia and decline in functioning. She presents with symptoms of severe OCD, somatization disorder and unspecified psychosis. She was hospitalized for 10 days at [facility] in november 2018 and since stopped mirtazapine. She merits hospitalization for immediate safety and stabilization. Plan - Plan Treatment Plan: Name: SHANNAN SCHMIDT Birthdate: 1955 [id number] continue acute intensive psychiatric treatment. continue current medications. discharge planning to include family and outpatient providers. Continued Medication Management: Consider Medication Medications: Current Medications Cholecalciferol (Vitamin D Tab*) 400 unit PO DAILY [facility] Last Admin: 12/29/18 08:24 Dose: 400 unit Clonazepam (Klonopin Tab(*)) 0.5 mg PO BID PRN PRN Reason: ANXIETY Docusate Sodium (Colace Cap*) 100 mg PO DAILY [facility] Last Admin: 12/29/18 08:24 Dose: Not Given Ibuprofen (Motrin Tab*) 600 mg PO Q4HR PRN PRN Reason: HEADACHE/PAIN Multivitamins (Theragran Tab*) 1 tab PO DAILY [facility] Last Admin: 12/29/18 08:25 Dose: Not Given Polyethyl Glycol/Propylene Glycol (Lubricant Eye Drops) 2 drop BOTH EYES BID [facility] Last Admin: 12/29/18 08:26 Dose: Not Given Polyethylene Glycol/Electrolytes (Miralax*) 17 gm PO DAILY PRN PRN Reason: CONSTIPATION Last Admin: 12/29/18 08:24 Dose: 17 gm Risperidone (Risperdal*) 1 mg PO BEDTIME [facility] Last Admin: 12/28/18 20:56 Dose: 1 mg - Discharge Plan Discharge Plan: Inpatient Hospitalization
--- NOTE | 2018-12-29 15:44 | PN ---
BSU: Group Therapy Note - Service Type Service Type: [id number] Group Psychotherapy - Group Participation Patient Participating in Group: Yes Level of Group Participation: Attentive Relatedness to Group: Bunny - Miley appeared to be attentive but did not participate. At the end of the group she seemed surprised that group was over and was confused about what the group had been about.
[2018-12-29] MEDS: risperiDONE TAB* 1 MG PO SCH (20:14)
[2018-12-30] MEDS: Cholecalciferol TAB* 400 UNIT PO SCH (08:13)
[2018-12-30] MEDS: Polyethylene Glycol 3350* 17 GM PACKET PO PRN (08:13)
[2018-12-30] MEDS: Vitamin THERAPEUTIC TAB PO SCH (08:14)
[2018-12-30] MEDS: Docusate CAP* 100 MG PO SCH (11:36)
[2018-12-30] MEDS: Polyethyl Glycol/Propylene Gly OPHTH.SOLN BOTH EYES SCH ×2 (11:36→20:51)
--- NOTE | 2018-12-30 20:00 | PN ---
Subjective - Subjective Date of Service: 12/30/18 Service Type: [id number] Hosp care 25 min moderate complexity Subjective: Patient is guarded and avoidant of questions pertaining to subjective mood or thoughts. She states she felt "drugged" due to am medications. [However, the only medications ordered were her usual vitamin D and prn miralax.] Patient is evasive and states that I know what is going on. She states she is being investigated for fraud related to $3-4K of money but is unable to explain further due to circular speech or blocking. Phone call to patient's daughter, Dominique. She reports concern that her mother is presenting differently to professionals than at home. She states that the more she reads about borderline personality d/o, the more she identifies characteristics of her mom. She spoke with patient's therapist, Marilyn who has not seen mood lability, extreme emotional responses or arguing with circular conversations. She states Marilyn has suggested Thalia come to weekly DBT group and that Thalia has declined or avoided this or PROS. Dominique reports offering much help with banking, paperwork, etx. She states that it seems as though her hearing is selective at times. In regards to having a pet, she states her mother has had multiple pets and gotten rid of them due to smells or scratching her belongings and other particular annoyances. Dominique states that she has 3 dogs and a cat at home but her mother does not interact with any of them. She states Thalia is either withdrawn, dysphoric, mopey and frequently asking permission for everything or completely melting down. Objective - General Observations Appearance: Neat, Well Groomed Appears Stated Age: Yes Stature: Thin Posture: WNL Eye Contact: Avoidant Behavior/Activity: Slowed, Other (See Comment) Behavior Comment: guarded - Interaction Observations Attitude Towards Examiner: Anxious, Mistrustful Stated Mood: Dysphoric Affect: Blunted Speech Pattern/Tone: Delayed, Quiet Volume Thought Process: Impoverished, Blocking Thought Content: Depressive, Paranoid, Self-Deprecatory Hallucination Type: None Delusion Type: Persecution, Somatic - Cognitive Function Orientation: A&O x 4 Level of Consciousness: Alert Cognition: WNL Estimated Intelligence: Normal Insight: Difficulty Acknowledging Presence of Psyciatric Problems Judgment Within Normal Limits: No Ability to Make Reasonable Decisions: Moderately Impaired - Medication Compliance Cooperative with Inpatient Medication Regimen: Partial Assessment - Assessment Merits Inpatient Hospitalization: For Immediate Safety, For Stabilization, To Initiate Treatment, For Ongoing Evaluation Inpatient DSM-V Dx: F42.8 Clinical Impression: 63yo wf, domiciled, disabled, and living with adult daughter and her family who presents to ED with disorganized thinking, paranoia and decline in functioning. She presents with symptoms of severe OCD, somatization disorder and unspecified psychosis. She was hospitalized for 10 days [place] [facility] [place] and since stopped mirtazapine. She merits hospitalization for immediate safety and stabilization. Plan - Plan Treatment Plan: Name: THALIA SCHMIDT Birthdate: 1955 [id number] continue acute intensive psychiatric treatment. continue current medications, consider clomipramine per patient consent discharge planning to include family and outpatient providers Continued Medication Management: Consider Medication Medications: Current Medications Cholecalciferol (Vitamin D Tab*) 400 unit PO DAILY [facility] Last Admin: 12/30/18 08:13 Dose: 400 unit Clonazepam (Klonopin Tab(*)) 0.5 mg PO BID PRN PRN Reason: ANXIETY Docusate Sodium (Colace Cap*) 100 mg PO DAILY [facility] Last Admin: 12/30/18 11:36 Dose: Not Given Ibuprofen (Motrin Tab*) 600 mg PO Q4HR PRN PRN Reason: HEADACHE/PAIN Multivitamins (Theragran Tab*) 1 tab PO DAILY [facility] Last Admin: 12/30/18 08:14 Dose: Not Given Polyethyl Glycol/Propylene Glycol (Lubricant Eye Drops) 2 drop BOTH EYES BID [facility] Last Admin: 12/30/18 11:36 Dose: Not Given Polyethylene Glycol/Electrolytes (Miralax*) 17 gm PO DAILY PRN PRN Reason: CONSTIPATION Last Admin: 12/30/18 08:13 Dose: 17 gm Risperidone (Risperdal*) 1 mg PO BEDTIME [facility] Last Admin: 12/29/18 20:14 Dose: 1 mg - Discharge Plan Discharge Plan: Inpatient Hospitalization
[2018-12-30] MEDS: risperiDONE TAB* 1 MG PO SCH ×2 (20:51→21:34)
[2018-12-31] MEDS: Polyethylene Glycol 3350* 17 GM PACKET PO PRN (08:22)
[2018-12-31] MEDS: Cholecalciferol TAB* 400 UNIT PO SCH (08:23)
[2018-12-31] MEDS: Docusate CAP* 100 MG PO SCH (08:23)
[2018-12-31] MEDS: Polyethyl Glycol/Propylene Gly OPHTH.SOLN BOTH EYES SCH ×2 (08:24→21:43)
[2018-12-31] MEDS: Vitamin THERAPEUTIC TAB PO SCH (08:24)
--- NOTE | 2018-12-31 17:38 | PN ---
Subjective - Subjective Date of Service: 12/31/18 Service Type: 74435 Hosp care 25 min moderate complexity Subjective: Patient is euthymic with bright affect upon approach. She states "Do you ever feel like you should just turn off your brain?" in regards to anxious thoughts. 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 She endorses anhedonia. When I ask about her mood, she pauses for some time and then makes an unrelated stated. When I ask again, she states "not happy." Supervisor Dehydrogenation phoned daughterDominique and gave treatment update. Objective - General Observations Appearance: Neat Stature: Thin Posture: WNL Eye Contact: Average Behavior/Activity: WNL - Interaction Observations Attitude Towards Examiner: Cooperative Stated Mood: Euthymic Affect: Bright Speech Pattern/Tone: Clear, Appropriate Thought Process: Coherent, Circumstantial Perception: WNL Thought Content: Preoccupation/Ruminations Hallucination Type: Denies Delusion Type: Denies - Cognitive Function Orientation: A&O x 4 Level of Consciousness: Alert Cognition: WNL Estimated Intelligence: Normal Insight: WNL Judgment Within Normal Limits: Yes Ability to Make Reasonable Decisions: Moderately Impaired - Medication Compliance Cooperative with Inpatient Medication Regimen: Partial - Group Participation Participates in Group Activities: Yes Assessment - Assessment Merits Inpatient Hospitalization: For Immediate Safety, For Stabilization Inpatient DSM-V Dx: F42.8 Clinical Impression: 63yo wf, domiciled, disabled, and living with adult daughter and her family who presents to ED with disorganized thinking, paranoia and decline in functioning. She presents with symptoms of severe OCD, somatization disorder and unspecified psychosis. She was hospitalized for 10 days at [facility] [place] in [place] 2018 and since stopped mirtazapine. She merits hospitalization for immediate safety and stabilization. Plan - Plan Treatment Plan: Name: SHANNAN SCHMIDT Birthdate: 1955 [id number] continue acute intensive psychiatric treatment. may decrease to q30min and allow staff pass. increase risperidone, consider clomipramine per patient consent discharge planning to include family and outpatient providers Medications: Current Medications Cholecalciferol (Vitamin D Tab*) 400 unit PO DAILY [facility] Last Admin: 12/31/18 08:23 Dose: 400 unit Clonazepam (Klonopin Tab(*)) 0.5 mg PO BID PRN PRN Reason: ANXIETY Docusate Sodium (Colace Cap*) 100 mg PO DAILY [facility] Last Admin: 12/31/18 08:23 Dose: Not Given Ibuprofen (Motrin Tab*) 600 mg PO Q4HR PRN PRN Reason: HEADACHE/PAIN Multivitamins (Theragran Tab*) 1 tab PO DAILY [facility] Last Admin: 12/31/18 08:24 Dose: Not Given Polyethyl Glycol/Propylene Glycol (Lubricant Eye Drops) 2 drop BOTH EYES BID [facility] Last Admin: 12/31/18 08:24 Dose: Not Given Polyethylene Glycol/Electrolytes (Miralax*) 17 gm PO DAILY PRN PRN Reason: CONSTIPATION Last Admin: 12/31/18 08:22 Dose: 17 gm Risperidone (Risperdal*) 2 mg PO BEDTIME [facility] - Discharge Plan Discharge Plan: Inpatient Hospitalization
[2018-12-31] MEDS ORDERED: risperiDONE TAB* 1 MG ONE (20:57)
[2018-12-31 21:23] LABS: Urine Appearance Cloudy; Urine Bacteria Absent (Absent); Urine Bilirubin Negative (Negative); Urine Blood 2+ (Negative); Urine Color Yellow; Urine Glucose 1+(50 mg/dL) (Negative); Urine Ketones Negative (Negative); Urine Nitrite Negative (Negative); Urine Protein 1+(30 mg/dL) (Negative); Urine Red Blood Cell 1+(3-5/hpf) (Absent); Urine Specific Gravity 1.021 (1.010-1.030); Urine Squamous Epithelial Cell Present (Absent); Urine Urobilinogen Negative (Negative); Urine White Blood Cell Absent (Absent)
[2018-12-31 21:32] LABS: Barbiturates Urine Screen None Detected (None Detect); Benzodiazepine Urine Screen None Detected (None Detect); Urine Cannabinoids Screen None Detected (None Detect)
[2018-12-31] MEDS: risperiDONE TAB* 1 MG PO SCH (21:43)
[2019-01-01] MEDS: Cholecalciferol TAB* 400 UNIT PO SCH (09:05)
[2019-01-01] MEDS: Docusate CAP* 100 MG PO SCH (09:07)
[2019-01-01] MEDS: Vitamin THERAPEUTIC TAB PO SCH (09:08)
[2019-01-01] MEDS: Polyethyl Glycol/Propylene Gly OPHTH.SOLN BOTH EYES SCH (09:08)
[2019-01-01] MEDS: Polyethylene Glycol 3350* 17 GM PACKET PO PRN (09:11)
[2019-01-02] MEDS: Polyethyl Glycol/Propylene Gly OPHTH.SOLN BOTH EYES SCH ×3 (00:40→20:49)
[2019-01-02] MEDS: risperiDONE TAB* 1 MG PO SCH ×2 (00:41→20:49)
--- NOTE | 2019-01-02 18:06 | PN ---
Subjective - Subjective Date of Service: 01/02/19 Service Type: [id number] Hosp care 25 min moderate complexity Subjective: Thalia is a poor historian due to her inability to hear well enough and refused to wear hearing aid. Not been eating or drinking enough. Says she sleeps off and on. Anxious and tremulous. Visibly suspicious and guarded. Objective - General Observations Appearance: Unkempt Appears Stated Age: Yes Stature: Thin Posture: Slumped Eye Contact: Intense Behavior/Activity: Slowed - Interaction Observations Attitude Towards Examiner: Mistrustful Stated Mood: Anxious Affect: Blunted, Flat Speech Pattern/Tone: Quiet Volume Thought Process: Circumstantial, Impoverished, Blocking Perception: WNL Thought Content: Depressive Hallucination Type: Denies - Cognitive Function Orientation: A&O x 4 Level of Consciousness: Alert Cognition: Impaired Attention/Concentration Estimated Intelligence: MR Range Insight: Difficulty Acknowledging Presence of Psyciatric Problems Judgment Within Normal Limits: No Ability to Make Reasonable Decisions: Serverely Impaired - Medication Compliance Cooperative with Inpatient Medication Regimen: Yes - Group Participation Participates in Group Activities: No Assessment - Assessment Merits Inpatient Hospitalization: For Immediate Safety, For Stabilization, Pending Safe DC Plan Inpatient DSM-V Dx: F42.8 Clinical Impression: 63yo wf, domiciled, disabled, and living with adult daughter and her family who presents to ED with disorganized thinking, paranoia and decline in functioning. She presents with symptoms of severe OCD, somatization disorder and unspecified psychosis. She was [place] [facility] [place] and since stopped mirtazapine. She merits hospitalization for immediate safety and stabilization. Plan - Plan Treatment Plan: Name: THALIA SCHMIDT Birthdate: 1955 [id number] continue acute intensive psychiatric treatment. may decrease to q30min and allow staff pass. increase risperidone, consider clomipramine per patient consent discharge planning to include family and outpatient providers Continued Medication Management: Continue Outpt Medication Medications: Current Medications Cholecalciferol (Vitamin D Tab*) 400 unit PO DAILY [facility] Last Admin: 01/01/19 09:05 Dose: 400 unit Clonazepam (Klonopin Tab(*)) 0.5 mg PO BID PRN PRN Reason: ANXIETY Docusate Sodium (Colace Cap*) 100 mg PO DAILY [facility] Last Admin: 01/01/19 09:07 Dose: Not Given Ibuprofen (Motrin Tab*) 600 mg PO Q4HR PRN PRN Reason: HEADACHE/PAIN Multivitamins (Theragran Tab*) 1 tab PO DAILY [facility] Last Admin: 01/01/19 09:08 Dose: Not Given Polyethyl Glycol/Propylene Glycol (Lubricant Eye Drops) 2 drop BOTH EYES BID [facility] Last Admin: 01/02/19 00:40 Dose: Not Given Polyethylene Glycol/Electrolytes (Miralax*) 17 gm PO DAILY PRN PRN Reason: CONSTIPATION Last Admin: 01/01/19 09:11 Dose: 17 gm Risperidone (Risperdal*) 2 mg PO BEDTIME [facility] Last Admin: 01/02/19 00:41 Dose: Not Given - Discharge Plan Discharge Plan: Consider Longer Term Tx
[2019-01-02] MEDS: Cholecalciferol TAB* 400 UNIT PO SCH (20:47)
[2019-01-02] MEDS: Docusate CAP* 100 MG PO SCH (20:47)
[2019-01-02] MEDS: Vitamin THERAPEUTIC TAB PO SCH (20:48)
[2019-01-03] MEDS ORDERED: LORazepam TAB(*) 1 MG PO ONE (00:03)
[2019-01-03] MEDS ORDERED: LORazepam INJ* 2 MG/ML 1 ML VIAL IM ONE (00:03)
[2019-01-03] MEDS: Cholecalciferol TAB* 400 UNIT PO SCH (08:57)
[2019-01-03] MEDS: Docusate CAP* 100 MG PO SCH (08:57)
[2019-01-03] MEDS: Polyethyl Glycol/Propylene Gly OPHTH.SOLN BOTH EYES SCH ×2 (08:58→23:02)
[2019-01-03] MEDS: Vitamin THERAPEUTIC TAB PO SCH (08:58)
--- NOTE | 2019-01-03 16:24 | PN ---
Subjective - Subjective Date of Service: 01/03/19 Service Type: 90552 Hosp care 35 min high complexity Subjective: Patient asserts that she was not disabled when initially granted SSD. She continues to endorse excessive guilt about this and other vague ideas that she starts to discuss then stops. At times, she speaks of herself in the 3rd person. Patient reports she stopped risperidone this weekend due to side effects. She agrees to return to 1mg dose. Sergeant At Arms and SW attempt to de-escalate patient and provide feedback that she is deserving of treatment; however she is increasingly tearful and rebuts. She reports increased appetite and intake today. Per staff, she is sleeping through the night. Objective - General Observations Appearance: Neat Appears Stated Age: Yes Stature: Thin Posture: Slumped Eye Contact: Intense Behavior/Activity: Slowed - Interaction Observations Attitude Towards Examiner: Anxious, Mistrustful Stated Mood: Anxious Affect: Labile - tearful Speech Pattern/Tone: Quiet Volume, Loud Volume Thought Process: Circumstantial, Impoverished Thought Content: Preoccupation/Ruminations, Obsessional Thought Process: Lethality: Paranoid Ideation Hallucination Type: Denies Delusion Type: Persecution, Somatic - Cognitive Function Orientation: A&O x 4 Level of Consciousness: Alert Cognition: WNL Estimated Intelligence: Normal Judgment Within Normal Limits: No Ability to Make Reasonable Decisions: Serverely Impaired - Medication Compliance Cooperative with Inpatient Medication Regimen: Partial - Group Participation Participates in Group Activities: Yes Assessment - Assessment Merits Inpatient Hospitalization: For Immediate Safety, For Stabilization Inpatient DSM-V Dx: F42.8 Clinical Impression: 63yo wf, domiciled, disabled, and living with adult daughter and her family who presents to ED with disorganized thinking, paranoia and decline in functioning. She presents with symptoms of severe OCD, somatization disorder and unspecified psychosis. She was [place] [facility] [place] and since stopped mirtazapine. She merits hospitalization for immediate safety and stabilization. Plan - Plan Treatment Plan: Name: SHANNAN SCHMIDT Birthdate: 1955 [id number] continue acute intensive psychiatric treatment. may decrease to q30min and allow staff pass. decrease risperidone, change clonazepam to scheduled dosing consider clomipramine per patient consent spa consultant consult discharge planning to include family and outpatient providers Continued Medication Management: Start Medication Medications: Current Medications Cholecalciferol (Vitamin D Tab*) 400 unit PO DAILY [facility] Last Admin: 01/03/19 08:57 Dose: 400 unit Clonazepam (Klonopin Tab(*)) 0.5 mg PO BID [facility] Docusate Sodium (Colace Cap*) 100 mg PO DAILY [facility] Last Admin: 01/03/19 08:57 Dose: 100 mg Ibuprofen (Motrin Tab*) 600 mg PO Q4HR PRN PRN Reason: HEADACHE/PAIN Multivitamins (Theragran Tab*) 1 tab PO DAILY [facility] Last Admin: 01/03/19 08:58 Dose: Not Given Polyethyl Glycol/Propylene Glycol (Lubricant Eye Drops) 2 drop BOTH EYES BID [facility] Last Admin: 01/03/19 08:58 Dose: Not Given Polyethylene Glycol/Electrolytes (Miralax*) 17 gm PO DAILY PRN PRN Reason: CONSTIPATION Last Admin: 01/01/19 09:11 Dose: 17 gm Risperidone (Risperdal*) 1 mg PO BEDTIME [facility] - Discharge Plan Discharge Plan: Inpatient Hospitalization
[2019-01-03] MEDS: clonazePAM TAB(*) 0.5 MG PO SCH ×2 (19:10→23:02)
[2019-01-03] MEDS: risperiDONE TAB* 1 MG PO SCH (23:02)
[2019-01-04] MEDS: Docusate CAP* 100 MG PO SCH (07:53)
[2019-01-04] MEDS: Polyethylene Glycol 3350* 17 GM PACKET PO PRN (07:54)
[2019-01-04] MEDS: Vitamin THERAPEUTIC TAB PO SCH (09:55)
[2019-01-04] MEDS: Polyethyl Glycol/Propylene Gly OPHTH.SOLN BOTH EYES SCH ×2 (09:55→21:16)
[2019-01-04] MEDS: clonazePAM TAB(*) 0.5 MG PO SCH (09:55)
[2019-01-04] MEDS: Cholecalciferol TAB* 400 UNIT PO SCH (09:55)
--- NOTE | 2019-01-04 11:59 | PN ---
BSU: Group Therapy Note - Service Type Service Type: [id number] Group Psychotherapy - Cognitive Behavioral Group Therapy ( CBT):Patient attended CBT programming this morning and presented with flat affect that did not vary with discussion. Although responsive to direct prompts to respond to questions, patient did not engage in spontaneous conversation.
[2019-01-04] MEDS ORDERED: clonazePAM TAB(*) 0.5 MG PO PRN (12:37)
--- NOTE | 2019-01-04 12:42 | PN ---
Subjective - Subjective Date of Service: 01/04/19 Service Type: 28444 Hosp care 25 min moderate complexity Subjective: Patient reports she is "not good." She endorses constipation and acid reflux. She reports historically taking miralax daily and colace prn. She states she has tried PPIs in the past with poor efficacy. Patient encouraged to describe barriers to medications. She states she is feeling drugged and unable to function. She states "why can't we change the diet ?" Team Physician offered to change both medications and diet. She inquires why radio news writer is trying to over medicate her. She is circular in argument and reports she prefers prn medication. Team Physician informs her that clonazepam was prn and she did not take it. We discuss potential need for TOO and she is encouraged to discuss various medication options. She asks that medications be ordered as before, ie. clonazepam 1mg qhs. She agrees to risperidone 1mg qhs. Objective - General Observations Appearance: Neat Stature: Thin Posture: WNL Eye Contact: Average Behavior/Activity: Other (See Comment) - Interaction Observations Attitude Towards Examiner: Anxious, Mistrustful Stated Mood: Anxious Affect: Restricted Speech Pattern/Tone: Quiet Volume Thought Process: Circumstantial, Impoverished, [place] Perception: WNL Thought Content: Preoccupation/Ruminations, Obsessional, Self-Deprecatory Thought Process: Lethality: Paranoid Ideation Hallucination Type: Denies Delusion Type: Somatic - Cognitive Function Orientation: A&O x 4 Level of Consciousness: Alert Cognition: WNL Estimated Intelligence: Normal Insight: Difficulty Acknowledging Presence of Psyciatric Problems Judgment Within Normal Limits: No Ability to Make Reasonable Decisions: Serverely Impaired - Medication Compliance Cooperative with Inpatient Medication Regimen: No - Group Participation Participates in Group Activities: Yes Assessment - Assessment Merits Inpatient Hospitalization: For Immediate Safety, For Stabilization Inpatient DSM-V Dx: F42.8 Clinical Impression: 63yo wf, domiciled, disabled, and living with adult daughter and her family who presents to ED with disorganized thinking, paranoia and decline in functioning. She presents with symptoms of severe OCD, somatization disorder and unspecified psychosis. She was hospitalized for 10 days at [facility] [place] in no[place]mber 2018 and since stopped mirtazapine. She merits hospitalization for immediate safety and stabilization. Plan - Plan Treatment Plan: Name: SHANNAN SCHMIDT Birthdate: 1955 [id number] continue acute intensive psychiatric treatment. may decrease to q30min and allow staff pass. decrease risperidone to 1mg qhs and change clonazepam to 1mg qhs along with 0.5mg BID prn anxiety. consider clomipramine per patient consent. consult hospitalist for acid reflux and constipation. Continued Medication Management: Start Medication Medications: Current Medications Cholecalciferol (Vitamin D Tab*) 400 unit PO DAILY [facility] Last Admin: 01/04/19 09:55 Dose: Not Given Clonazepam (Klonopin Tab(*)) 1 mg PO BEDTIME [facility] Clonazepam (Klonopin Tab(*)) 0.5 mg PO BID PRN PRN Reason: ANXIETY Docusate Sodium (Colace Cap*) 100 mg PO DAILY [facility] Last Admin: 01/04/19 07:53 Dose: 100 mg Ibuprofen (Motrin Tab*) 600 mg PO Q4HR PRN PRN Reason: HEADACHE/PAIN Multivitamins (Theragran Tab*) 1 tab PO DAILY [facility] Last Admin: 01/04/19 09:55 Dose: Not Given Polyethyl Glycol/Propylene Glycol (Lubricant Eye Drops) 2 drop BOTH EYES BID [facility] Last Admin: 01/04/19 09:55 Dose: Not Given Polyethylene Glycol/Electrolytes (Miralax*) 17 gm PO DAILY [facility] Last Admin: 01/04/19 07:54 Dose: 17 gm Risperidone (Risperdal*) 1 mg PO BEDTIME [facility] Last Admin: 01/03/19 23:02 Dose: Not Given - Discharge Plan Discharge Plan: Inpatient Hospitalization
[2019-01-04] MEDS: risperiDONE TAB* 1 MG PO SCH (20:22)
[2019-01-04] MEDS: clonazePAM TAB(*) 1 MG PO SCH (20:22)
[2019-01-05] MEDS: Polyethyl Glycol/Propylene Gly OPHTH.SOLN BOTH EYES SCH ×2 (08:41→20:10)
[2019-01-05] MEDS: Cholecalciferol TAB* 400 UNIT PO SCH (08:42)
[2019-01-05] MEDS: Docusate CAP* 100 MG PO SCH (08:42)
[2019-01-05] MEDS: Pantoprazole TAB * 40 MG TAB PO SCH (08:43)
[2019-01-05] MEDS: Vitamin THERAPEUTIC TAB PO SCH (08:43)
[2019-01-05] MEDS: Polyethylene Glycol 3350* 17 GM PACKET PO SCH (08:45)
[2019-01-05] MEDS: clonazePAM TAB(*) 1 MG PO SCH (20:07)
[2019-01-05] MEDS: risperiDONE TAB* 1 MG PO SCH (20:08)
[2019-01-06] MEDS: Cholecalciferol TAB* 400 UNIT PO SCH (09:08)
[2019-01-06] MEDS: Polyethylene Glycol 3350* 17 GM PACKET PO SCH (15:16)
[2019-01-06] MEDS: Pantoprazole TAB * 40 MG TAB PO SCH (15:16)
[2019-01-06] MEDS: Docusate CAP* 100 MG PO SCH (15:16)
[2019-01-06] MEDS: Vitamin THERAPEUTIC TAB PO SCH (15:16)
[2019-01-06] MEDS: Polyethyl Glycol/Propylene Gly OPHTH.SOLN BOTH EYES SCH ×2 (15:16→20:25)
--- NOTE | 2019-01-06 15:31 | PN ---
Subjective - Subjective Date of Service: 01/06/19 Service Type: 61894 Hosp care 25 min moderate complexity Subjective: Patient is often tearful and continues to endorse delusion of being fraudulent. She reports being fearful of showering, citing cameras. She is avoidant of interactions with peers and states that she is a bother to others. Patient exhibits poor insight and denies that thinking is obsessional or delusional. We discuss the suggested treatment with clomipramine. Patient declines to add another medication and is encouraged to contemplate further. Truck Rental Service Attendant spoke with hospitalist service, recommended PPI and laxative for patient reports of acid reflux and constipation. Objective - General Observations Appearance: Neat Stature: Thin Posture: WNL Eye Contact: Average Behavior/Activity: Slowed - Interaction Observations Attitude Towards Examiner: Anxious Stated Mood: Anxious Affect: Full Speech Pattern/Tone: Quiet Volume Thought Process: Impoverished, [place] Perception: WNL Thought Content: Obsessional, Paranoid, Self-Deprecatory Hallucination Type: Denies Delusion Type: Persecution, Somatic - Cognitive Function Orientation: A&O x 4 Level of Consciousness: Awake Cognition: WNL Estimated Intelligence: Normal Insight: Difficulty Acknowledging Presence of Psyciatric Problems Judgment Within Normal Limits: No Ability to Make Reasonable Decisions: Serverely Impaired - Medication Compliance Cooperative with Inpatient Medication Regimen: Partial - Group Participation Participates in Group Activities: Yes Assessment - Assessment Merits Inpatient Hospitalization: For Immediate Safety, For Stabilization Inpatient DSM-V Dx: F42.8 Clinical Impression: 63yo wf, domiciled, disabled, and living with adult daughter and her family who presents to ED with disorganized thinking, paranoia and decline in functioning. She presents with symptoms of severe OCD, somatization disorder and unspecified psychosis. She was hospitalized for 10 days at [facility] [place] in [place] 2018 and since stopped mirtazapine. She merits hospitalization for immediate safety and stabilization. Plan - Plan Treatment Plan: Name: SHANNAN SCHMIDT Birthdate: 1955 [id number] continue acute intensive psychiatric treatment. may decrease to q30min and allow staff pass. continue current medications. consider clomipramine per patient consent. Medications: Current Medications Bisacodyl (Dulcolax Supp*) 10 mg HI DAILY PRN PRN Reason: CONSTIPATION Cholecalciferol (Vitamin D Tab*) 400 unit PO DAILY [facility] Last Admin: 01/06/19 09:08 Dose: 400 unit Clonazepam (Klonopin Tab(*)) 1 mg PO BEDTIME [facility] Last Admin: 01/05/19 20:07 Dose: 1 mg Clonazepam (Klonopin Tab(*)) 0.5 mg PO BID PRN PRN Reason: ANXIETY Docusate Sodium (Colace Cap*) 100 mg PO DAILY [facility] Last Admin: 01/06/19 15:16 Dose: Not Given Ibuprofen (Motrin Tab*) 600 mg PO Q4HR PRN PRN Reason: HEADACHE/PAIN Multivitamins (Theragran Tab*) 1 tab PO DAILY [facility] Last Admin: 01/06/19 15:16 Dose: Not Given Pantoprazole Sodium (Protonix Tab*) 40 mg PO DAILY [facility] Last Admin: 01/06/19 15:16 Dose: Not Given Polyethyl Glycol/Propylene Glycol (Lubricant Eye Drops) 2 drop BOTH EYES BID [facility] Last Admin: 01/06/19 15:16 Dose: Not Given Polyethylene Glycol/Electrolytes (Miralax*) 17 gm PO DAILY [facility] Last Admin: 01/06/19 15:16 Dose: Not Given Risperidone (Risperdal*) 1 mg PO BEDTIME [facility] Last Admin: 01/05/19 20:08 Dose: 1 mg - Discharge Plan Discharge Plan: Inpatient Hospitalization
[2019-01-06] MEDS: clonazePAM TAB(*) 1 MG PO SCH (20:22)
[2019-01-06] MEDS: risperiDONE TAB* 1 MG PO SCH (20:22)
[2019-01-07 07:57] LABS: ABS Basophils 0 10^3/ul (0-0.2); ABS Eosinophils 0.1 10^3/ul (0-0.6); ABS Lymphocytes 1.2 10^3/ul (1.0-4.8); ABS Monocytes 0.3 10^3/ul (0-0.8); ABS Neutrophils 2.9 10^3/ul (1.5-7.7); ABS Nucleated RBC 0 10^3/ul; Eosinophil % 1.4 %; Hematocrit 42 % (33-41); Hemoglobin 14.4 g/dL (12.0-16.0); Lymphocyte % 26.6 %; Mean Corpuscular HGB Conc 34 g/dL (31-36); Mean Corpuscular Hemoglobin 30 pg (27-31); Mean Corpuscular Volume 88 fL (80-97); Mean Platelet Volume 7.9 fL (7.4-10.4); Nucleated Red Blood Cells % 0.1; Platelet Count 278 10^3/uL (150-450); Red Blood Count 4.81 10^6 /uL (3.70-4.87); Red Cell Distribution Width 13 % (10.5-15); White Blood Count 4.4 10^3/uL (3.5-10.8)
[2019-01-07 08:10] LABS: Albumin 3.8 g/dL (3.2-5.2); Albumin/Globulin Ratio 1.7 (1-3); BUN/Creatinine Ratio 28.2 (8-20); Calcium 9.2 mg/dL (8.6-10.3); EGFR African American 90.9 (>60); EGFR Non-African American 75.1 (>60); Globulin 2.3 g/dL (2-4); Potassium 4.1 mmol/L (3.5-5.0); Total Bilirubin 0.5 mg/dL (0.2-1.0); Total Protein 6.1 g/dL (6.4-8.9)
[2019-01-07] MEDS: Polyethylene Glycol 3350* 17 GM PACKET PO SCH (15:35)
[2019-01-07] MEDS: Pantoprazole TAB * 40 MG TAB PO SCH (15:35)
[2019-01-07] MEDS: Polyethyl Glycol/Propylene Gly OPHTH.SOLN BOTH EYES SCH ×2 (15:35→20:05)
[2019-01-07] MEDS: Cholecalciferol TAB* 400 UNIT PO SCH (15:35)
[2019-01-07] MEDS: Docusate CAP* 100 MG PO SCH (15:35)
[2019-01-07] MEDS: Vitamin THERAPEUTIC TAB PO SCH (15:36)
--- NOTE | 2019-01-07 16:19 | PN ---
Subjective - Subjective Date of Service: 01/07/19 Service Type: [id number] Hosp care 25 min moderate complexity Subjective: Patient c/o not being able to participate in groups due poor hearing and ill- fitting hearing aide. She expresses frustration that she does not understand, nor is able to complete worksheets. There is no change in thought processes and patient continues to have impaired insight. Leather Crafter spoke with daughter about patient's presentation and likelihood of need for Treatment Over Objection. She states agreement that her mother is not able to care for herself and would likely decompensate if returns home at this time. Objective - General Observations Appearance: Neat Stature: Thin Posture: WNL Eye Contact: Avoidant Behavior/Activity: Slowed - Interaction Observations Attitude Towards Examiner: Anxious Stated Mood: Dysphoric Affect: Blunted Speech Pattern/Tone: Clear Thought Process: Loose Associations, Impoverished Thought Content: Obsessional, Paranoid, Self-Deprecatory Hallucination Type: None Delusion Type: Persecution, Somatic - Cognitive Function Orientation: A&O x 4 Level of Consciousness: Alert Cognition: WNL Estimated Intelligence: Normal Insight: Difficulty Acknowledging Presence of Psyciatric Problems Judgment Within Normal Limits: No Ability to Make Reasonable Decisions: Serverely Impaired - Medication Compliance Cooperative with Inpatient Medication Regimen: Partial - Group Participation Participates in Group Activities: Yes Assessment - Assessment Merits Inpatient Hospitalization: For Immediate Safety, For Stabilization, Consolidate Improvements Inpatient DSM-V Dx: F42.8 Clinical Impression: 63yo wf, domiciled, disabled, and living with adult daughter and her family who presents to ED with disorganized thinking, paranoia and decline in functioning. She presents with symptoms of severe OCD, somatization disorder and unspecified psychosis. She was hospitalized for 10 days at [facility] in november 2018 and since stopped mirtazapine. She merits hospitalization for immediate safety and stabilization. Plan - Plan Treatment Plan: Name: SHANNAN SCHMIDT Birthdate: 1955 [id number] continue acute intensive psychiatric treatment. may decrease to q30min and allow staff pass. increase risperidone to 3mg qhs, continue clonazepam 1mg qhs along with 0.5mg BID prn anxiety. start clomipramine 50mg qhs. ordered ensure with meals and patient is encouraged to increase protein and fluid intake. Continued Medication Management: Start Medication Medications: Current Medications Bisacodyl (Dulcolax Supp*) 10 mg [place] DAILY PRN PRN Reason: CONSTIPATION Cholecalciferol (Vitamin D Tab*) 400 unit PO DAILY [facility] Last Admin: 01/07/19 15:35 Dose: Not Given Clonazepam (Klonopin Tab(*)) 1 mg PO BEDTIME [facility] Last Admin: 01/06/19 20:22 Dose: 1 mg Clonazepam (Klonopin Tab(*)) 0.5 mg PO BID PRN PRN Reason: ANXIETY Docusate Sodium (Colace Cap*) 100 mg PO DAILY [facility] Last Admin: 01/07/19 15:35 Dose: Not Given Ibuprofen (Motrin Tab*) 600 mg PO Q4HR PRN PRN Reason: HEADACHE/PAIN Multivitamins (Theragran Tab*) 1 tab PO DAILY [facility] Last Admin: 01/07/19 15:36 Dose: Not Given Pantoprazole Sodium (Protonix Tab*) 40 mg PO DAILY [facility] Last Admin: 01/07/19 15:35 Dose: Not Given Polyethyl Glycol/Propylene Glycol (Lubricant Eye Drops) 2 drop BOTH EYES BID [facility] Last Admin: 01/07/19 15:35 Dose: Not Given Polyethylene Glycol/Electrolytes (Miralax*) 17 gm PO DAILY [facility] Last Admin: 01/07/19 15:35 Dose: Not Given Risperidone (Risperdal*) 1 mg PO BEDTIME [facility] Last Admin: 01/06/19 20:22 Dose: 1 mg - Discharge Plan Discharge Plan: Inpatient Hospitalization
[2019-01-07 18:04] LABS: Urine Appearance Clear; Urine Bacteria Absent (Absent); Urine Bilirubin Negative (Negative); Urine Blood 1+ (Negative); Urine Color Yellow; Urine Glucose Negative (Negative); Urine Ketones Negative (Negative); Urine Nitrite Negative (Negative); Urine Protein Negative (Negative); Urine Red Blood Cell 2+(6-10/hpf) (Absent); Urine Specific Gravity 1.024 (1.010-1.030); Urine Urobilinogen Negative (Negative); Urine White Blood Cell Trace(0-5/hpf) (Absent)
[2019-01-07] MEDS: CMCS:ClomiPRAMINE (NF) 25 MG CAP PO SCH (20:08)
[2019-01-07] MEDS: risperiDONE TAB* 3 MG PO SCH (20:09)
[2019-01-07] MEDS: clonazePAM TAB(*) 1 MG PO SCH (20:09)
[2019-01-07] MEDS: Bisacodyl SUPP* 10 MG SUPP PR PRN (20:16)
[2019-01-08] MEDS: Polyethylene Glycol 3350* 17 GM PACKET PO SCH (08:22)
[2019-01-08] MEDS: Pantoprazole TAB * 40 MG TAB PO SCH (08:22)
[2019-01-08] MEDS: Polyethyl Glycol/Propylene Gly OPHTH.SOLN BOTH EYES SCH ×2 (08:22→22:26)
[2019-01-08] MEDS: Cholecalciferol TAB* 400 UNIT PO SCH (08:22)
[2019-01-08] MEDS: Docusate CAP* 100 MG PO SCH (08:23)
[2019-01-08] MEDS: Vitamin THERAPEUTIC TAB PO SCH (08:23)
[2019-01-08] MEDS: clonazePAM TAB(*) 1 MG PO SCH (20:22)
[2019-01-08] MEDS: risperiDONE TAB* 3 MG PO SCH (20:23)
[2019-01-08] MEDS: CMCS:ClomiPRAMINE (NF) 25 MG CAP PO SCH (22:26)
[2019-01-09] MEDS: Cholecalciferol TAB* 400 UNIT PO SCH (10:55)
[2019-01-09] MEDS: Polyethylene Glycol 3350* 17 GM PACKET PO SCH (10:56)
[2019-01-09] MEDS: Polyethyl Glycol/Propylene Gly OPHTH.SOLN BOTH EYES SCH ×2 (10:56→20:01)
[2019-01-09] MEDS: Docusate CAP* 100 MG PO SCH (10:56)
[2019-01-09] MEDS: Pantoprazole TAB * 40 MG TAB PO SCH (10:56)
[2019-01-09] MEDS: Vitamin THERAPEUTIC TAB PO SCH (10:56)
[2019-01-09] MEDS: clonazePAM TAB(*) 1 MG PO SCH (19:59)
[2019-01-09] MEDS: risperiDONE TAB* 3 MG PO SCH (19:59)
[2019-01-09] MEDS: CMCS:ClomiPRAMINE (NF) 25 MG CAP PO SCH (20:01)
[2019-01-10] MEDS: Cholecalciferol TAB* 400 UNIT PO SCH (09:08)
[2019-01-10] MEDS: Polyethylene Glycol 3350* 17 GM PACKET PO SCH (09:09)
[2019-01-10] MEDS: Docusate CAP* 100 MG PO SCH (09:10)
[2019-01-10] MEDS: Polyethyl Glycol/Propylene Gly OPHTH.SOLN BOTH EYES SCH ×2 (09:10→20:08)
[2019-01-10] MEDS: Pantoprazole TAB * 40 MG TAB PO SCH (09:10)
[2019-01-10] MEDS: Vitamin THERAPEUTIC TAB PO SCH (09:10)
--- NOTE | 2019-01-10 15:26 | PN ---
Subjective - Subjective Date of Service: 01/10/19 Service Type: [id number] Hosp care 15 min low complexity Subjective: Patient reports feeling "drugged." She has not accepted clomipramine since ordered. She has been declining Ensure with meals, citing stomach pain. Service Cashier challenges her inconsistency with c/o acid reflux and constipation and not taking GI medications. She denies making paranoid statements and misquotes herself from conversation with SW last week. Patient reports desire to continue conversation, despite making circular statements. Service Cashier attempts to convene conversation multiple times. Objective - General Observations Appearance: Neat Stature: Thin Posture: WNL Eye Contact: Average Behavior/Activity: Slowed - Interaction Observations Attitude Towards Examiner: Anxious, Defensive Stated Mood: Dysphoric, Anxious Affect: Blunted Speech Pattern/Tone: Clear, Appropriate, Normal Volume Thought Process: Coherent Perception: WNL Thought Content: Depressive, Self-Deprecatory Thought Process: Lethality: Paranoid Ideation Hallucination Type: None Delusion Type: Denies - Cognitive Function Orientation: A&O x 4 Level of Consciousness: Alert Cognition: WNL Estimated Intelligence: Normal Insight: Difficulty Acknowledging Presence of Psyciatric Problems Judgment Within Normal Limits: No Ability to Make Reasonable Decisions: Serverely Impaired - Medication Compliance Cooperative with Inpatient Medication Regimen: Partial - Group Participation Participates in Group Activities: Yes Assessment - Assessment Merits Inpatient Hospitalization: For Immediate Safety, For Stabilization, For Ongoing Evaluation Inpatient DSM-V Dx: F42.8 Clinical Impression: 63yo wf, domiciled, disabled, and living with adult daughter and her family who presents to ED with disorganized thinking, paranoia and decline in functioning. She presents with symptoms of severe OCD, somatization disorder and unspecified psychosis. She was [place] [facility] [place] and since stopped mirtazapine. She merits hospitalization for immediate safety and stabilization. Plan - Plan Treatment Plan: Name: SHANNAN SCHMIDT Birthdate: 1955 [id number] continue acute intensive psychiatric treatment. may decrease to q30min and allow staff pass. convert to 2PC and consider Treatment Over Objection continue current medications, as ordered. obtain patient weight on mornings of MWF. ordered ensure with meals and patient is encouraged to increase protein and fluid intake Continued Medication Management: Start Medication Medications: Current Medications Bisacodyl (Dulcolax Supp*) 10 mg [place] DAILY PRN PRN Reason: CONSTIPATION Last Admin: 01/07/19 20:16 Dose: 10 mg Cholecalciferol (Vitamin D Tab*) 400 unit PO DAILY [facility] Last Admin: 01/10/19 09:08 Dose: Not Given Clomipramine HCl (Clomipramine (Nf)) 50 mg PO BEDTIME [facility] Last Admin: 01/09/19 20:01 Dose: Not Given Clonazepam (Klonopin Tab(*)) 1 mg PO BEDTIME [facility] Last Admin: 01/09/19 19:59 Dose: 1 mg Clonazepam (Klonopin Tab(*)) 0.5 mg PO BID PRN PRN Reason: ANXIETY Docusate Sodium (Colace Cap*) 100 mg PO DAILY [facility] Last Admin: 01/10/19 09:10 Dose: Not Given Ibuprofen (Motrin Tab*) 600 mg PO Q4HR PRN PRN Reason: HEADACHE/PAIN Multivitamins (Theragran Tab*) 1 tab PO DAILY [facility] Last Admin: 01/10/19 09:10 Dose: Not Given Pantoprazole Sodium (Protonix Tab*) 40 mg PO DAILY [facility] Last Admin: 01/10/19 09:10 Dose: Not Given Polyethyl Glycol/Propylene Glycol (Lubricant Eye Drops) 2 drop BOTH EYES BID [facility] Last Admin: 01/10/19 09:10 Dose: Not Given Polyethylene Glycol/Electrolytes (Miralax*) 17 gm PO DAILY [facility] Last Admin: 01/10/19 09:09 Dose: 17 gm Risperidone (Risperdal*) 3 mg PO BEDTIME [facility] Last Admin: 01/09/19 19:59 Dose: 3 mg - Discharge Plan Discharge Plan: Inpatient Hospitalization
[2019-01-10] MEDS: CMCS:ClomiPRAMINE (NF) 25 MG CAP PO SCH (20:11)
[2019-01-10] MEDS: risperiDONE TAB* 3 MG PO SCH (20:11)
[2019-01-10] MEDS: clonazePAM TAB(*) 1 MG PO SCH (20:11)
[2019-01-11] MEDS: Polyethyl Glycol/Propylene Gly OPHTH.SOLN BOTH EYES SCH ×2 (08:16→21:26)
[2019-01-11] MEDS: Docusate CAP* 100 MG PO SCH (08:16)
[2019-01-11] MEDS: Pantoprazole TAB * 40 MG TAB PO SCH (08:16)
[2019-01-11] MEDS: Polyethylene Glycol 3350* 17 GM PACKET PO SCH (08:16)
[2019-01-11] MEDS: Cholecalciferol TAB* 400 UNIT PO SCH (08:16)
[2019-01-11] MEDS: Vitamin THERAPEUTIC TAB PO SCH (08:18)
--- NOTE | 2019-01-11 11:10 | PN ---
BSU: Group Therapy Note - Service Type Service Type: [id number] Group Psychotherapy - Cognitive Behavioral Group Therapy ( CBT):Patient attended CBT programming this morning and presented with flat affect that did not vary with discussion. Although responsive to direct prompts to respond to questions, patient did not engage in spontaneous conversation.
[2019-01-11] MEDS: clonazePAM TAB(*) 1 MG PO SCH (20:05)
[2019-01-11] MEDS: CMCS:ClomiPRAMINE (NF) 25 MG CAP PO SCH (20:05)
[2019-01-11] MEDS: risperiDONE TAB* 3 MG PO SCH (20:05)
[2019-01-12] MEDS: Polyethylene Glycol 3350* 17 GM PACKET PO SCH (08:52)
[2019-01-12] MEDS: Cholecalciferol TAB* 400 UNIT PO SCH (08:55)
[2019-01-12] MEDS: Docusate CAP* 100 MG PO SCH (08:55)
[2019-01-12] MEDS: Pantoprazole TAB * 40 MG TAB PO SCH (08:55)
[2019-01-12] MEDS: Vitamin THERAPEUTIC TAB PO SCH (08:56)
[2019-01-12] MEDS: Polyethyl Glycol/Propylene Gly OPHTH.SOLN BOTH EYES SCH (08:56)
--- NOTE | 2019-01-12 11:24 | PN ---
BSU: Group Therapy Note - Service Type Service Type: [id number] Group Psychotherapy - Cognitive Behavioral Group Therapy ( CBT):Patient attended CBT programming this morning and presented with flat affect that did not vary with discussion. Although responsive to direct prompts to respond to questions, patient did not engage in spontaneous conversation.
--- NOTE | 2019-01-12 14:57 | PN ---
Subjective - Subjective Date of Service: 01/12/19 Service Type: [id number] Hosp care 15 min low complexity Subjective: patient presents as dysphoric with congruent affect. She has difficulty identifying mood or emotions when asked. She states she is "frustrated" in relation to "feeling drugged" by medications. She reports frustration with not understanding groups or paperwork. Patient identifies utilizing calming techniques for anxiety and is praised for this. She c/o GI medications "not working" and therefore taking them inconsistently. Engineering Tech encourages continued daily dosages of PPI and stool softener for efficacy. She states she was told by a specialist in [place] that miralax is to be taken daily and stool softener as needed. Objective - General Observations Appearance: Neat Appears Stated Age: Yes Stature: Thin Posture: WNL Behavior/Activity: WNL - Interaction Observations Attitude Towards Examiner: Cooperative, Anxious Stated Mood: Anxious - "frustrated" Affect: Restricted Speech Pattern/Tone: Clear, Appropriate Thought Process: Circumstantial, Impoverished Perception: WNL Thought Content: Obsessional, Depressive, Self-Deprecatory Hallucination Type: Denies Delusion Type: Somatic - Cognitive Function Orientation: A&O x 4 Level of Consciousness: Alert Cognition: WNL Estimated Intelligence: Normal Insight: Difficulty Acknowledging Presence of Psyciatric Problems Judgment Within Normal Limits: No Ability to Make Reasonable Decisions: Serverely Impaired - Medication Compliance Cooperative with Inpatient Medication Regimen: Partial - Group Participation Participates in Group Activities: Yes Assessment - Assessment Merits Inpatient Hospitalization: For Immediate Safety, For Stabilization, Consolidate Improvements Inpatient DSM-V Dx: F42.8 Clinical Impression: 63yo wf, domiciled, disabled, and living with adult daughter and her family who presents to ED with disorganized thinking, paranoia and decline in functioning. She presents with symptoms of severe OCD, somatization disorder and unspecified psychosis. She was hospitalized [place] [facility] [place] and since stopped mirtazapine. She merits hospitalization for immediate safety and stabilization. Plan - Plan Treatment Plan: Name: SHANNAN SCHMIDT Birthdate: 1955 [id number] continue acute intensive psychiatric treatment. may decrease to q30min and allow staff pass. continue current medications, as ordered. obtain patient weight on mornings of MWF. ordered ensure with meals and patient is encouraged to increase protein and fluid intake consider Treatment Over Objection and [facility] state [facility], if no improvement Medications: Current Medications Bisacodyl (Dulcolax Supp*) 10 mg [place] DAILY PRN PRN Reason: CONSTIPATION Last Admin: 01/07/19 20:16 Dose: 10 mg Cholecalciferol (Vitamin D Tab*) 400 unit PO DAILY [facility] Last Admin: 01/12/19 08:55 Dose: Not Given Clomipramine HCl (Clomipramine (Nf)) 50 mg PO BEDTIME [facility] Last Admin: 01/11/19 20:05 Dose: 50 mg Clonazepam (Klonopin Tab(*)) 1 mg PO BEDTIME [facility] Last Admin: 01/11/19 20:05 Dose: 1 mg Clonazepam (Klonopin Tab(*)) 0.5 mg PO BID PRN PRN Reason: ANXIETY Docusate Sodium (Colace Cap*) 100 mg PO DAILY [facility] Last Admin: 01/12/19 08:55 Dose: Not Given Ibuprofen (Motrin Tab*) 600 mg PO Q4HR PRN PRN Reason: HEADACHE/PAIN Multivitamins (Theragran Tab*) 1 tab PO DAILY [facility] Last Admin: 01/12/19 08:56 Dose: Not Given Pantoprazole Sodium (Protonix Tab*) 40 mg PO DAILY [facility] Last Admin: 01/12/19 08:55 Dose: Not Given Polyethyl Glycol/Propylene Glycol (Lubricant Eye Drops) 2 drop BOTH EYES BID [facility] Last Admin: 01/12/19 08:56 Dose: Not Given Polyethylene Glycol/Electrolytes (Miralax*) 17 gm PO DAILY [facility] Last Admin: 01/12/19 08:52 Dose: 17 gm Risperidone (Risperdal*) 3 mg PO BEDTIME [facility] Last Admin: 01/11/19 20:05 Dose: 3 mg - Discharge Plan Discharge Plan: Inpatient Hospitalization
--- NOTE | 2019-01-12 16:24 | PN ---
BSU: Group Therapy Note - Service Type Service Type: [id number] Group Psychotherapy - Medication Education Group: Patient attended group and presented with flat affect that did not vary with discussion. Although responsive to direct prompts to respond to questions, patient did not engage in spontaneous conversation.
[2019-01-12] MEDS: clonazePAM TAB(*) 1 MG PO SCH (19:57)
[2019-01-12] MEDS: CMCS:ClomiPRAMINE (NF) 25 MG CAP PO SCH (19:57)
[2019-01-12] MEDS: risperiDONE TAB* 3 MG PO SCH (19:57)
[2019-01-13] MEDS: Vitamin THERAPEUTIC TAB PO SCH (07:26)
[2019-01-13] MEDS: Polyethylene Glycol 3350* 17 GM PACKET PO SCH (07:26)
[2019-01-13] MEDS: Cholecalciferol TAB* 400 UNIT PO SCH (07:26)
[2019-01-13] MEDS: Pantoprazole TAB * 40 MG TAB PO SCH (07:26)
[2019-01-13] MEDS: Docusate CAP* 100 MG PO SCH (07:26)
--- NOTE | 2019-01-13 11:12 | PN ---
BSU: Group Therapy Note - Service Type Service Type: [id number] Group Psychotherapy - Cognitive Behavioral Group Therapy ( CBT):Patient attended CBT programming this morning and presented with flat affect that did not vary with discussion. Although responsive to direct prompts to respond to questions, patient did not engage in spontaneous conversation.
[2019-01-13] MEDS: CMCS ClomiPRAMINE (NF) 25 MG CAP PO SCH (20:06)
[2019-01-13] MEDS: clonazePAM TAB(*) 1 MG PO SCH (20:09)
[2019-01-13] MEDS: risperiDONE TAB* 3 MG PO SCH (20:10)
[2019-01-14] MEDS: Polyethylene Glycol 3350* 17 GM PACKET PO SCH (08:20)
[2019-01-14] MEDS: Cholecalciferol TAB* 400 UNIT PO SCH (08:21)
[2019-01-14] MEDS: Docusate CAP* 100 MG PO SCH (08:21)
[2019-01-14] MEDS: Pantoprazole TAB * 40 MG TAB PO SCH (08:21)
[2019-01-14] MEDS: Vitamin THERAPEUTIC TAB PO SCH (08:21)
--- NOTE | 2019-01-14 12:39 | PN ---
Subjective - Subjective Date of Service: 01/14/19 Service Type: 14753 Hosp care 25 min moderate complexity Subjective: Patient observed to interact with female peer with bright affect and full conversation. Per staff, she had epistaxis this morning. Pt denies this is worrisome to her, that she was mostly concerned that her roommate would see the blood and wanted to make sure it was cleaned up. We discuss patient's improvement. She is able to identify that she doesn't "worry like I used to." She states she no longer worries about making her bed or coloring in the lines. She states she is no longer concerned about papers from groups and states "I decided it's not worth me saying I can't do them." She inquires about disability paperwork. She states that she received a letter that it will be discontinued. [She did not mention concern about being fraudulent.] Cook Sauce encouraged her to discuss mail and bills with her daughter, who has expressed desire to be helpful. Patient inquires about placement after discharge. She is informed that she will continue to live with her daughter and that this has been the plan since admission. Objective - General Observations Appearance: Neat Stature: Thin Posture: WNL Eye Contact: Average Behavior/Activity: WNL - Interaction Observations Attitude Towards Examiner: Cooperative Stated Mood: Euthymic - "alright" Speech Pattern/Tone: Clear, Appropriate, Normal Volume Thought Process: Coherent Perception: WNL Thought Content: WNL Hallucination Type: Denies Delusion Type: Denies - Cognitive Function Orientation: A&O x 4 Level of Consciousness: Alert Cognition: WNL Estimated Intelligence: Normal Insight: Difficulty Acknowledging Presence of Psyciatric Problems Judgment Within Normal Limits: No Ability to Make Reasonable Decisions: Moderately Impaired - Medication Compliance Cooperative with Inpatient Medication Regimen: Yes - Group Participation Participates in Group Activities: Yes Assessment - Assessment Merits Inpatient Hospitalization: For Immediate Safety, For Stabilization, Consolidate Improvements Inpatient DSM-V Dx: F42.8 Clinical Impression: 63yo wf, domiciled, disabled, and living with adult daughter and her family who presents to ED with disorganized thinking, paranoia and decline in functioning. She presents with symptoms of severe OCD, somatization disorder and unspecified psychosis. She was hospitalized for 10 days at [facility] in november 2018 and since stopped mirtazapine. She is beginning to have more reality- based conversation and is tolerating medication titration. She merits hospitalization for immediate safety and stabilization. Plan - Plan Treatment Plan: Name: SHANNAN SCHMIDT Birthdate: 1955 [id number] continue acute intensive psychiatric treatment. may decrease to q30min and allow staff pass. titrate clomipramine. continue other medications, as ordered. obtain patient weight on mornings of [facility]. monitor intake discharge planning to include family meeting, recommendations for outpatient treatment. Continued Medication Management: Start Medication Medications: Current Medications Bisacodyl (Dulcolax Supp*) 10 mg [place] DAILY PRN PRN Reason: CONSTIPATION Last Admin: 01/07/19 20:16 Dose: 10 mg Cholecalciferol (Vitamin D Tab*) 400 unit PO DAILY [facility] Last Admin: 01/14/19 08:21 Dose: Not Given Clomipramine HCl (Clomipramine (Nf)) 75 mg PO BEDTIME [facility] Last Admin: 01/13/19 20:06 Dose: 75 mg Clonazepam (Klonopin Tab(*)) 1 mg PO BEDTIME [facility] Last Admin: 01/13/19 20:09 Dose: 1 mg Clonazepam (Klonopin Tab(*)) 0.5 mg PO BID PRN PRN Reason: ANXIETY Docusate Sodium (Colace Cap*) 100 mg PO DAILY [facility] Last Admin: 01/14/19 08:21 Dose: 100 mg Ibuprofen (Motrin Tab*) 600 mg PO Q4HR PRN PRN Reason: HEADACHE/PAIN Multivitamins (Theragran Tab*) 1 tab PO DAILY [facility] Last Admin: 01/14/19 08:21 Dose: Not Given Pantoprazole Sodium (Protonix Tab*) 40 mg PO DAILY [facility] Last Admin: 01/14/19 08:21 Dose: 40 mg Polyethylene Glycol/Electrolytes (Miralax*) 17 gm PO DAILY [facility] Last Admin: 01/14/19 08:20 Dose: 17 gm Risperidone (Risperdal*) 3 mg PO BEDTIME [facility] Last Admin: 01/13/19 20:10 Dose: 3 mg - Discharge Plan Discharge Plan: Inpatient Hospitalization
[2019-01-14] MEDS: CMCS ClomiPRAMINE (NF) 25 MG CAP PO SCH (20:07)
[2019-01-14] MEDS: risperiDONE TAB* 3 MG PO SCH (20:09)
[2019-01-14] MEDS: clonazePAM TAB(*) 1 MG PO SCH (20:09)
[2019-01-15] MEDS: Docusate CAP* 100 MG PO SCH (08:15)
[2019-01-15] MEDS: Pantoprazole TAB * 40 MG TAB PO SCH (08:15)
[2019-01-15] MEDS: Cholecalciferol TAB* 400 UNIT PO SCH (08:15)
[2019-01-15] MEDS: Polyethylene Glycol 3350* 17 GM PACKET PO SCH (08:15)
[2019-01-15] MEDS: Vitamin THERAPEUTIC TAB PO SCH (09:32)
[2019-01-15] MEDS: CMCS ClomiPRAMINE (NF) 25 MG CAP PO SCH (20:22)
[2019-01-15] MEDS: clonazePAM TAB(*) 1 MG PO SCH (20:22)
[2019-01-15] MEDS: risperiDONE TAB* 3 MG PO SCH (20:22)
[2019-01-16] MEDS: Docusate CAP* 100 MG PO SCH (07:37)
[2019-01-16] MEDS: Cholecalciferol TAB* 400 UNIT PO SCH (07:37)
[2019-01-16] MEDS: Vitamin THERAPEUTIC TAB PO SCH (07:37)
[2019-01-16] MEDS: Polyethylene Glycol 3350* 17 GM PACKET PO SCH (07:37)
[2019-01-16] MEDS: Pantoprazole TAB * 40 MG TAB PO SCH (07:37)
[2019-01-16] MEDS: Bisacodyl SUPP* 10 MG SUPP PR PRN (17:50)
[2019-01-16] MEDS: clonazePAM TAB(*) 1 MG PO SCH (19:59)
[2019-01-16] MEDS: risperiDONE TAB* 3 MG PO SCH (20:00)
[2019-01-16] MEDS: CMCS ClomiPRAMINE (NF) 25 MG CAP PO SCH (20:00)
[2019-01-17] MEDS: Polyethylene Glycol 3350* 17 GM PACKET PO SCH (07:37)
[2019-01-17] MEDS: Vitamin THERAPEUTIC TAB PO SCH (07:37)
[2019-01-17] MEDS: Cholecalciferol TAB* 400 UNIT PO SCH (07:38)
[2019-01-17] MEDS: Pantoprazole TAB * 40 MG TAB PO SCH (07:39)
[2019-01-17] MEDS: Docusate CAP* 100 MG PO SCH (07:39)
[2019-01-17 09:15] VITALS: BP 111/62
[2019-01-17] MEDS ORDERED: clonazePAM TAB(*) 0.5 MG PO PRN (10:30)
--- NOTE | 2019-01-17 12:00 | PN ---
Subjective - Subjective Date of Service: 01/17/19 Service Type: [id number] Hosp care 25 min moderate complexity Subjective: Patient is euthymic and easy to engage in conversation. She reports her mood is "ok" and with further prompting, she is able to identify she is "not as depressed." She reports some anxiety about transitioning back to her daughter' s home, stating "I wonder what the kids will think." We discussed disease model and patient is encouraged to attribute past symptoms to illness, versus blaming herself. She states she does not recall most of her actions prior to admission. She states she is hopeful that family members can visit. Video Production Coordinator phoned patient's daughter, Dominique, and left voicemail with update. Objective - General Observations Appearance: Neat Stature: Thin Posture: WNL Eye Contact: Average Behavior/Activity: WNL - Interaction Observations Attitude Towards Examiner: Cooperative Stated Mood: Euthymic Affect: Full Speech Pattern/Tone: Clear, Appropriate, Normal Volume Thought Process: Coherent, Goal Directed Perception: WNL Thought Content: WNL Hallucination Type: Denies Delusion Type: Denies - Cognitive Function Orientation: A&O x 4 Level of Consciousness: Alert Cognition: WNL Estimated Intelligence: Normal Insight: WNL Judgment Within Normal Limits: Yes Ability to Make Reasonable Decisions: Mildly Impaired - Medication Compliance Cooperative with Inpatient Medication Regimen: Yes - Group Participation Participates in Group Activities: Yes Assessment - Assessment Merits Inpatient Hospitalization: For Immediate Safety, For Stabilization, Consolidate Improvements Inpatient DSM-V Dx: F42.8 Clinical Impression: 63yo wf, domiciled, disabled, and living with adult daughter and her family who presents to ED with disorganized thinking, paranoia and decline in functioning. She presents with symptoms of severe OCD, somatization disorder and unspecified psychosis. She was hospitalized for 10 days at [facility] [place] in [place] 2018 and since stopped mirtazapine. She is beginning to have more reality- based conversation and is tolerating medication titration. She merits hospitalization for immediate safety and stabilization. Plan - Plan Treatment Plan: Name: SHANNAN SCHMIDT Birthdate: 1955 [id number] continue acute intensive psychiatric treatment. may decrease to q30min and allow staff pass. titrate clomipramine. change MVI to liquid, add lubricant eye drops. continue other medications, as ordered. obtain patient weight on mornings of MWF. monitor intake discharge planning to include family meeting, recommendations for outpatient treatment. Medications: Current Medications Bisacodyl (Dulcolax Supp*) 10 mg [place] DAILY PRN PRN Reason: CONSTIPATION Last Admin: 01/16/19 17:50 Dose: 10 mg Cholecalciferol (Vitamin D Tab*) 400 unit PO DAILY [facility] Last Admin: 01/17/19 07:38 Dose: 400 unit Clomipramine HCl (Clomipramine (Nf)) 100 mg PO BEDTIME [facility] Clonazepam (Klonopin Tab(*)) 1 mg PO BEDTIME [facility] Clonazepam (Klonopin Tab(*)) 0.5 mg PO BID PRN PRN Reason: ANXIETY Docusate Sodium (Colace Cap*) 100 mg PO DAILY [facility] Last Admin: 01/17/19 07:39 Dose: 100 mg Ibuprofen (Motrin Tab*) 600 mg PO Q4HR PRN PRN Reason: HEADACHE/PAIN Multivitamins (Theragran W/Minerals Liq*) 15 ml PO DAILY [facility] Pantoprazole Sodium (Protonix Tab*) 40 mg PO DAILY [facility] Last Admin: 01/17/19 07:39 Dose: 40 mg Polyethyl Glycol/Propylene Glycol (Lubricant Eye Drops) 2 drop BOTH EYES BID [facility] Polyethylene Glycol/Electrolytes (Miralax*) 17 gm PO DAILY [facility] Last Admin: 01/17/19 07:37 Dose: Not Given Risperidone (Risperdal*) 3 mg PO BEDTIME [facility] Last Admin: 01/16/19 20:00 Dose: 3 mg - Discharge Plan Discharge Plan: Inpatient Hospitalization
[2019-01-17] MEDS: Multivitamins ADULT w/MIN LIQ* 15 ML UDC PO SCH (14:02)
[2019-01-17] MEDS: Polyethyl Glycol/Propylene Gly OPHTH.SOLN BOTH EYES SCH ×2 (14:03→20:08)
[2019-01-17] MEDS: risperiDONE TAB* 3 MG PO SCH (20:26)
[2019-01-17] MEDS ORDERED: CMC:ClomiPRAMINE (NF) 25 MG CAP PO SCH (21:00)
[2019-01-17] MEDS ORDERED: clonazePAM TAB(*) 1 MG PO SCH (21:00)
[2019-01-18] MEDS: Polyethylene Glycol 3350* 17 GM PACKET PO SCH (07:31)
[2019-01-18] MEDS: Polyethyl Glycol/Propylene Gly OPHTH.SOLN BOTH EYES SCH (07:31)
[2019-01-18] MEDS: Cholecalciferol TAB* 400 UNIT PO SCH (07:31)
[2019-01-18] MEDS: Pantoprazole TAB * 40 MG TAB PO SCH (07:33)
[2019-01-18] MEDS: Multivitamins ADULT w/MIN LIQ* 15 ML UDC PO SCH (07:33)
[2019-01-18] MEDS: Docusate CAP* 100 MG PO SCH (07:33)
--- NOTE | 2019-01-18 11:18 | PN ---
BSU: Group Therapy Note - Service Type Service Type: [id number] Group Psychotherapy - Cognitive Behavioral Group Therapy ( CBT):Patient attended CBT programming this morning and presented with flat affect that did not vary with discussion. Although responsive to direct prompts to respond to questions, patient did not engage in spontaneous conversation.
--- NOTE | 2019-01-18 13:53 | DS ---
Subjective - Subjective Service Types: 19124 Hosp DC Day Mgmt complex over 30 min Discharge Date: 01/18/19 Objective - Appearance Appearance: Thin Framed Dysmorphic Features: No Hygiene: Normal Grooming: Well Kept - Behavior Psychomotor Activities: Normal Exhibits Abnormal Movement: No - Attitude and Relatedness Attitude and Relatedness: Cooperative Eye Contact: Good - Speech Quality: Unpressured Latencies: Normal Quantity: Appropriate - Mood Patient's Decription of Mood: "Okay" - Affect Observed Affect: Good Affect Consistent with: Euthymia - Thought Process Patient's Thought Process: Coherent, Goal Directed Thought Content: No Passive Wish, No Suicidal Planning, No Homicidal Ideation, No Paranoid Ideation - Sensorium Experiencing Hallucinations: No, Sensorium is Clear Type of Hallucinations: Visual: No, Auditory: No, Command: No - Level of Consciousness Level of Consciousness: Alert Orientation: Yes Intact, Yes Orientated to Time, Yes Orientated to Place, Yes Orientated to Person - Impulse Control Impulse Control: Intact - Insight and Judgement Insight and Judgement: Fair - Group Participation Particating in Group Activities: Yes - Medication Management Medication Management Adherence: Yes Treatment Course & Assessment Clinical Course & Impression: 63yo wf, domiciled, disabled, and living with adult daughter and her family who presents to ED with disorganized thinking, paranoia and decline in functioning. She presents with symptoms of severe OCD, somatization disorder and unspecified psychosis. She was hospitalized for 10 days at [facility] in november 2018 and since stopped mirtazapine. She is beginning to have more reality- based conversation and is tolerating medication titration. She merits hospitalization for immediate safety and stabilization. Please see H/P dictated by advertising copywriter on 12/28/18 for full history. 12/29. Patient reports adequate sleep and denies untoward effects from HS risperidone. She presents as anxious and is encouraged to express her thoughts. She states worry about signing papers and not understanding legal jargon. She eludes to anxiety about technology, bank card and paying bills. She states she often receives unknown calls on her cell phone and does not agree that these could be telemarketing calls. She states concern that her daughter and family have changed things in the house, such as level of toilet water and picking up after themselves. She is convinced this is all ominous information pertaining to her. She endorses increased depression and is quick to attribute this to castillo and last admission. She states "I haven't gotten over that." Patient encouraged that she is hospitalized to improve baseline and return to her daughter's home. She goes on to express that she thinks she would do better with a pet, as in a service dog. Weight obtained: 98lb 3.2oz (-1.8lb) 12/30. Patient is guarded and avoidant of questions pertaining to subjective mood or thoughts. She states she felt "drugged" due to am medications. [ However, the only medications ordered were her usual vitamin D and prn miralax. ] Patient is evasive and states that I know what is going on. She states she is being investigated for fraud related to $3-4K of money but is unable to explain further due to circular speech or blocking. Phone call to patient's daughter, Dominique. She reports concern that her mother is presenting differently to professionals than at home. She states that the more she reads about borderline personality d/o, the more she identifies characteristics of her mom. She spoke with patient's therapist, Marilyn who has not seen mood lability, extreme emotional responses or arguing with circular conversations. She states Marilyn has suggested Thalia come to weekly DBT group and that Thalia has declined or avoided this or PROS. Dominique reports offering much help with banking, paperwork, etx. She states that it seems as though her hearing is selective at times. In regards to having a pet, she states her mother has had multiple pets and gotten rid of them due to smells or scratching her belongings and other particular annoyances. Dominique states that she has 3 dogs and a cat at home but her mother does not interact with any of them. She states Thalia is either withdrawn, dysphoric, mopey and frequently asking permission for everything or completely melting down. 12/31. Patient is euthymic with bright affect upon approach. She states "Do you ever feel like you should just turn off your brain?" in regards to anxious thoughts. 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 She endorses anhedonia. When I ask about her mood, she pauses for some time and then makes an unrelated stated. When I ask again, she states "not happy." Risperidone increased to 2mg qhs. 01/02. Thalia is a poor historian due to her inability to hear well enough and refused to wear hearing aid. Not been eating or drinking enough. Says she sleeps off and on. Anxious and tremulous. Visibly suspicious and guarded. 01/03. Patient asserts that she was not disabled when initially granted SSD. She continues to endorse excessive guilt about this and other vague ideas that she starts to discuss then stops. At times, she speaks of herself in the 3rd person. Patient reports she stopped risperidone this weekend due to side effects. She agrees to return to 1mg dose. Brand Ambassador Promotional Model and SW attempt to de-escalate patient and provide feedback that she is deserving of treatment; however she is increasingly tearful and rebuts. She reports increased appetite and intake today. Per staff, she is sleeping through the night. Risperidone decreased to 1mg. clonazepam changed to 0.5mg BID rosa. Colace 100mg scheduled and miralax daily prn. 01/04. Patient reports she is "not good." She endorses constipation and acid reflux. She reports historically taking miralax daily and colace prn. She states she has tried PPIs in the past with poor efficacy. Patient encouraged to describe barriers to medications. She states she is feeling drugged and unable to function. She states "why can't we change the diet?" Brand Ambassador Promotional Model offered to change both medications and diet. She inquires why advertising copywriter is trying to over medicate her. She is circular in argument and reports she prefers prn medication. Brand Ambassador Promotional Model informs her that clonazepam was prn and she did not take it. We discuss potential need for TOO and she is encouraged to discuss various medication options. She asks that medications be ordered as before, ie. clonazepam 1mg qhs. She agrees to risperidone 1mg qhs. 01/06. Patient is often tearful and continues to endorse delusion of being fraudulent. She reports being fearful of showering, citing cameras. She is avoidant of interactions with peers and states that she is a bother to others. Patient exhibits poor insight and denies that thinking is obsessional or delusional. We discuss the suggested treatment with clomipramine. Patient declines to add another medication and is encouraged to contemplate further. Brand Ambassador Promotional Model spoke with hospitalist service, recommended PPI and laxative for patient reports of acid reflux and constipation. Weight obtained: 97lb 9.6oz (-0.6lb) 01/07. Patient c/o not being able to participate in groups due poor hearing and ill-fitting hearing aide. She expresses frustration that she does not understand, nor is able to complete worksheets. There is no change in thought processes and patient continues to have impaired insight. Brand Ambassador Promotional Model spoke with daughter about patient's presentation and likelihood of need for Treatment Over Objection. She states agreement that her mother is not able to care for herself and would likely decompensate if returns home at this time. increase risperidone to 3mg qhs, continue clonazepam 1mg qhs along with 0.5mg BID prn anxiety. start clomipramine 50mg qhs. ordered ensure with meals and patient is encouraged to increase protein and fluid intake. 01/10. Patient reports feeling "drugged." She has not accepted clomipramine since ordered. She has been declining Ensure with meals, citing stomach pain. Brand Ambassador Promotional Model challenges her inconsistency with c/o acid reflux and constipation and not taking GI medications. She denies making paranoid statements and misquotes herself from conversation with SW last week. Patient reports desire to continue conversation, despite making circular statements. Brand Ambassador Promotional Model attempts to convene conversation multiple times. convert to 2PC and consider Treatment Over Objection. continue current medications, as ordered. obtain patient weight on mornings of MWF. 01/12. patient presents as dysphoric with congruent affect. She has difficulty identifying mood or emotions when asked. She states she is "frustrated" in relation to "feeling drugged" by medications. She reports frustration with not understanding groups or paperwork. Patient identifies utilizing calming techniques for anxiety and is praised for this. She c/o GI medications "not working" and therefore taking them inconsistently. Brand Ambassador Promotional Model encourages continued daily dosages of PPI and stool softener for efficacy. She states she was told by a specialist in [place] that miralax is to be taken daily and stool softener as needed. Weight obtained: 101lb 9.6oz (+4lb) 01/14. Patient observed to interact with female peer with bright affect and full conversation. Per staff, she had epistaxis this morning. Pt denies this is worrisome to her, that she was mostly concerned that her roommate would see the blood and wanted to make sure it was cleaned up. We discuss patient's improvement. She is able to identify that she doesn't "worry like I used to." She states she no longer worries about making her bed or coloring in the lines. She states she is no longer concerned about papers from groups and states "I decided it's not worth me saying I can't do them." She inquires about disability paperwork. She states that she received a letter that it will be discontinued. [She did not mention concern about being fraudulent.] Brand Ambassador Promotional Model encouraged her to discuss mail and bills with her daughter, who has expressed desire to be helpful. Patient inquires about placement after discharge. She is informed that she will continue to live with her daughter and that this has been the plan since admission. Discussed intake with concrete pipe maker. Patient will be monitored for 3-day calorie count. Weight obtained: 104lb 3.2oz (+2.6lb) 01/17. Patient is euthymic and easy to engage in conversation. She reports her mood is "ok" and with further prompting, she is able to identify she is "not as depressed." She reports some anxiety about transitioning back to her daughter' s home, stating "I wonder what the kids will think." We discussed disease model and patient is encouraged to attribute past symptoms to illness, versus blaming herself. She states she does not recall most of her actions prior to admission. She states she is hopeful that family members can visit. Clomipramine titrated to 100mg qhs. Weight obtained: 103lb 11.2oz (-0.5lb) Merits Inpatient Hospitalization: No Clear for Discharge: Adequate Clinical Respons, Acceptable Safety Profile Inpatient DSM-V Dx: F42.8 Discharge Planning - Discharge Planning Discharge Plan: Outpatient Follow Up Recommendations for Continuing Care: Medication Management, Psychotherapy, Primary Care Followup Medications: Current Medications Clomipramine HCl (Clomipramine (Nf)) 100 mg PO BEDTIME ROSA Last Admin: 01/17/19 20:04 Dose: 100 mg Clonazepam (Klonopin Tab(*)) 1 mg PO BEDTIME ROSA Last Admin: 01/17/19 20:06 Dose: 1 mg Clonazepam (Klonopin Tab(*)) 0.5 mg PO BID PRN PRN Reason: ANXIETY Docusate Sodium (Colace Cap*) 100 mg PO DAILY [facility] Last Admin: 01/18/19 07:33 Dose: 100 mg Ibuprofen (Motrin Tab*) 600 mg PO Q4HR PRN PRN Reason: HEADACHE/PAIN Pantoprazole Sodium (Protonix Tab*) 40 mg PO DAILY [facility] Last Admin: 01/18/19 07:33 Dose: 40 mg Polyethylene Glycol/Electrolytes (Miralax*) 17 gm PO DAILY PRN constipation Last Admin: 01/18/19 07:31 Risperidone (Risperdal*) 3 mg PO BEDTIME [facility] Last Admin: 01/17/19 20:26 Dose: 3 mg Discharge Planning: Prescriptions provided for discharge [X] Yes [] No Follow up care details as per social work arrangements: [place] therapist on 01/19 at 11am Marino Uribe psychiatrist on 01/[address] Barbara Lomeli at [facility] care on 01/31 at 9am Patient response to discharge plan: [X] eager for discharge [X] agreeable with discharge plan [] ambivalent about discharge [] disagrees with discharge today
== END 2019-01-18 15:40 | disposition home or self-care (01) | DRG 882 ==
LOC: ED 20:51 → BSU 12-28 09:03
PROVIDERS: ADMIT Psychiatry & Neurology Psychiatry; ATTEND Psychiatry & Neurology Psychiatry
PROC: GZHZZZZ Group Psychotherapy (ICD-10-PCS; principal; 2018-12-28)
DX: F42.8 Other obsessive-compulsive disorder (principal); Z68.1 Body mass index [BMI] 19.9 or less, adult; F45.0 Somatization disorder; K21.9 Gastro-esophageal reflux disease without esophagitis; K59.09 Other constipation; M81.0 Age-related osteoporosis without current pathological fracture; F50.9 Eating disorder, unspecified; F41.0 Panic disorder [episodic paroxysmal anxiety]; F43.10 Post-traumatic stress disorder, unspecified; H91.92 Unspecified hearing loss, left ear; H91.91 Unspecified hearing loss, right ear; Z97.4 Presence of external hearing-aid; Z88.8 Allergy status to other drugs, medicaments and biological substances; Z88.5 Allergy status to narcotic agent; Z88.1 Allergy status to other antibiotic agents; Z88.0 Allergy status to penicillin; Z88.2 Allergy status to sulfonamides; Z91.5 Personal history of self-harm
CPT/HCPCS: 36415; 80053; 80061; 80307; 80320; 80329; 81003; 81015; 83036; 84443; 85025; 87086; 90853; 99222; 99231; 99232; 99233; 99238; 99284; A9270-GY; G0480

== ENCOUNTER 2019-02-03 16:39 | Inpatient (IN) | payer MEDICARE, MEDICAID ==
--- NOTE | 2019-02-03 17:45 | ED ---
Psychiatric Complaint - HPI Summary HPI Summary: Pt is a 63 y/o F presenting to the ED brought in by her daughter for a psychiatric complaint. When asked if anything is wrong, she states Nothing. I m fine. Per the pts daughter, she was last discharged from [facility] on 01/18/19 from her second admission to [facility]. The first time she was d/rosendo, they gave her Remron, and a couple of days after she was home she began verbalizing strange, paranoid thoughts. The second admission, the pt was d/rosendo with Klonopin, Clomipramine, and Rusperidone. A week prior to being d/rosendo, she had her first appt with her psychiatrist, where she stated she was not going to take her medications anymore. Her psychiatrist gave her a weening schedule for each of her medications, and since stopping the clomipramine on 01/31/19, stopping the Rusperidone, and switching the Klonopin to Xanax, her paranoid/strange statements have returned. The pts behaviors include things such as being accusatory toward family members , saying she is being investigated for fraud, and that she has no benefits, but will not allow her daughter to call and fix it for her, and she is also nervous about any paper she signs. The pt also reportedly says her daughter is just going to keep admitting her until the pt is finalized, which the daughter does not know the meaning of. When asked about these behaviors and statements, the pt firmly states I have nothing to say. The pts daughter also reports that she usually picks at the food that she eats , but cannot confirm the pts sleep habits. In response, the pts daughter states I have eaten more than I ever have. Pt denies fever, auditory hallucinations and SI. In response to the story given by the daughter, the pt simply states I have nothing to say. - History Of Current Complaint Chief Complaint: EDPsychosocial Time Seen by Provider: 02/03/19 16:48 Accompanied By: daughter Hx Obtained From: Family/Sole Edge Inker Machine - daughter Hx From Patient Unobtainable Due To: Other - refusal to comply Onset/Duration: Gradual Onset, Lasting Weeks, Still Present Timing: Intermittent Episode Lasting - dependent on medication compliance Severity Initially: Moderate Severity Currently: Moderate Character: Manic Aggravating Factor(s): Medication Non-compliance Alleviating Factor(s): Nothing Associated Signs And Symptoms: Positive: Paranoid Behavior Related History: Positive For: Prior Psychiatric Issues Has Suicidal: Denies: Thoughts - Allergies/Home Medications Allergies/Adverse Reactions: Allergies Allergy/AdvReac Type Severity Reaction Status Date / Time acetaminophen [From Percocet] Allergy Unknown Verified 02/03/19 16:48 Reaction Details amitriptyline [From Elavil] Allergy Unknown Verified 02/03/19 16:48 Reaction Details azithromycin [From Zithromax] Allergy Rash Verified 02/03/19 16:48 bupropion Allergy Hives Verified 02/03/19 16:48 [From Wellbutrin SR] buspirone [From BuSpar] Allergy Unknown Verified 02/03/19 16:48 Reaction Details cefuroxime Allergy Eyes Verified 02/03/19 16:48 Itchy/Swollen/Red/Watery chondroitin sulfate A Allergy Hives Verified 02/03/19 16:48 [From Osteo Bi-Flex] citalopram [From Celexa] Allergy Unknown Verified 02/03/19 16:48 Reaction Details codeine Allergy Hives Verified 02/03/19 16:48 dexlansoprazole Allergy Nausea Verified 02/03/19 16:48 [From Dexilant] divalproex sodium Allergy Unknown Verified 02/03/19 16:48 [From Depakote] Reaction Details doxycycline Allergy Unknown Verified 02/03/19 16:48 Reaction Details duloxetine [From Cymbalta] Allergy Hives Verified 02/03/19 16:48 erythromycin base Allergy Unknown Verified 02/03/19 16:48 Reaction Details escitalopram [From Lexapro] Allergy Itching Verified 02/03/19 16:48 esomeprazole [From Nexium] Allergy Stomach Verified 02/03/19 16:48 Cramps fluoxetine [From Prozac] Allergy Hives Verified 02/03/19 16:48 glucosamine Allergy Hives Verified 02/03/19 16:48 guaifenesin [From Mucinex] Allergy Nausea Verified 02/03/19 16:48 Lactobacillus rhamnosus GG Allergy Rash Verified 02/03/19 16:48 [From Culturelle] methocarbamol [From Robaxin] Allergy Hives Verified 02/03/19 16:48 metronidazole Allergy Unknown Verified 02/03/19 16:48 Reaction Details mometasone furoate Allergy Difficulty Verified 02/03/19 16:48 [From Asmanex Twisthaler] Swallowing nalbuphine [From Nubain] Allergy See Comment Verified 02/03/19 16:48 nefazodone [From Serzone] Allergy Hives Verified 02/03/19 16:48 nitrofurantoin Allergy Unknown Verified 02/03/19 16:48 [From Macrobid] Reaction Details norfloxacin [From Noroxin] Allergy Unknown Verified 02/03/19 16:48 Reaction Details NSAIDS (Non-Steroidal Allergy Stomach Verified 02/03/19 16:48 Anti-Inflamma Cramps oxycodone [From Percocet] Allergy Unknown Verified 02/03/19 16:48 Reaction Details paroxetine [From Paxil] Allergy Agitation Verified 02/03/19 16:48 Penicillins Allergy Unknown Verified 02/03/19 16:48 Reaction Details prednisone Allergy See Comment Verified 02/03/19 16:48 pseudoephedrine Allergy See Comment Verified 02/03/19 16:48 [From Sudafed] ranitidine Allergy Dizziness Verified 02/03/19 16:48 rofecoxib [From Vioxx] Allergy Edema Verified 02/03/19 16:48 sertraline [From Zoloft] Allergy Shakes Verified 02/03/19 16:48 Sulfa (Sulfonamide Allergy Unknown Verified 02/03/19 16:48 Antibiotics) Reaction Details tramadol Allergy See Comment Verified 02/03/19 16:48 trimethoprim Allergy Unknown Verified 02/03/19 16:48 Reaction Details venlafaxine [From Effexor] Allergy Agitation Verified 02/03/19 16:48 probiotics Allergy Rash Uncoded 02/03/19 16:48 properidil Allergy See Comment Uncoded 02/03/19 16:48 Home Medications: Home Medications ALPRAZolam TAB* [Xanax TAB*] 1 mg PO TID PRN 02/03/19 [History Confirmed ] Pantoprazole TAB * [Protonix TAB*] 40 mg PO DAILY 02/03/19 [History Confirmed ] Polyethylene Glycol 3350* [Miralax*] 17 gm PO DAILY PRN 02/03/19 [History Confirmed 02/03/19] PMH/Surg Hx/FS Hx/Imm Hx Previously Healthy: No Cardiovascular History: Reports: Hx Hypotension GI History: Reports: Hx Irritable Bowel, Other GI Disorders - chronic constipation Musculoskeletal History: Reports: Hx Osteoporosis, Other Musculoskeletal History - Lumbar disc issues Sensory History: Reports: Hx Contacts or Glasses, Hx Deafness, Hx Hearing Aid, Hx Hearing Problem Opthamlomology History: Reports: Hx Contacts or Glasses Neurological History: Reports: Other Neuro Impairments/Disorders - reports distant hx possible seizure r/t benzo withdrawal Psychiatric History: Reports: Hx Anxiety, Hx Eating Disorder, Hx Panic Disorder , Hx Post Traumatic Stress Disorder, Hx Inpatient Treatment, Hx Community Mental Health Tx, Other Psychiatric Issues/Disorders - OCD, dissociative identity disorder, PTSD, somatization disorder, SI Denies: Hx Suicide Attempt, Hx of Violent Episodes Against Others Infectious Disease History: No Infectious Disease History: Denies: Traveled Outside the [place] in Last 30 Days - Family History Known Family History: Negative: Cardiac Disease - Social History Alcohol Use: None Hx Substance Use: No Substance Use Type: Reports: None Hx Tobacco Use: No Smoking Status (MU): Never Smoked Tobacco Review of Systems Negative: Fever Negative: Other - SI All Other Systems Reviewed And Are Negative: Yes Physical Exam - Summary Physical Exam Summary: Constitutional: Well-developed, Well-nourished, Alert. (-) Distressed Skin: Warm, Dry HENT: Normocephalic; Atraumatic Eyes: Conjunctiva normal Neck: Musculoskeletal ROM normal neck. (-) JVD, (-) Stridor, (-) Tracheal deviation Cardio: Rhythm regular, rate normal, Heart sounds normal; Intact distal pulses; The pedal pulses are 2+ and symmetric. Radial pulses are 2+ and symmetric. Pulmonary/Chest wall: Effort normal. (-) Respiratory distress, (-) Wheezes, (-) Rales Abd: Soft, (-) tenderness, (-) Distension, (-) Guarding, (-) Rebound Musculoskeletal: (-) Edema Neuro: Alert, Oriented x3 Psych: Mood and affect Normal Triage Information Reviewed: Yes Vital Signs On Initial Exam: Initial Vitals Temp Pulse Resp BP Pulse Ox 98.2 F 87 14 136/75 100 02/03/19 16:42 02/03/19 16:42 02/03/19 16:42 02/03/19 16:42 02/03/19 16:42 Vital Signs Reviewed: Yes Diagnostics - Vital Signs Vital Signs Temp Pulse Resp BP Pulse Ox 02/03/19 16:42 98.2 F 87 14 136/75 100 - Laboratory Lab Statement: Any lab studies that have been ordered have been reviewed, and results considered in the medical decision making process. Course/Dx - Course Course Of Treatment: Pt is a 63 y/o F presenting to the ED brought in by her daughter for a psychiatric complaint. When asked if anything is wrong, she states Nothing. Im fine. The daughter states she has been admitted here twice before this visit, and has had her medications switched around many times. She has recently stopped her medications, and her paranoid behavior/ statements have become more prevalent. The pts behaviors include things such as being accusatory toward family members, saying she is being investigated for fraud, and that she has no benefits, but will not allow her daughter to call and fix it for her, and she is also nervous about any paper she signs. The pt also reportedly says her daughter is just going to keep admitting her until the pt is finalized, which the daughter does not know the meaning of. When asked about these behaviors and statements, the pt firmly states I have nothing to say.. The pts daughter also reports that she usually picks at the food that she eats, but cannot confirm the pts sleep habits. In response, the pts daughter states I have eaten more than I ever have.. Pt denies fever, auditory hallucinations and SI. In response to the story given by the daughter, the pt simply states I have nothing to say.. The pt will be signed out to Terry Jaime MD., pending MHE. - Differential Dx/Clinical Impression Provider Diagnosis: Paranoia Discharge - Sign-Out/Discharge Documenting (check all that apply): Sign-Out Patient Signing out patient TO: Terry Jaime - Discharge Plan Condition: Stable Referrals: Barbara Lomeli DO [Primary Care Provider] - - Billing Disposition and Condition Condition: STABLE - Attestation Statements Document Initiated by Scribe: Yes Documenting Scribe: Dasia Farah Provider For Whom Rosie is Documenting (Include Credential): Kemal Thorpe MD. Scribe Attestation: Dasia Weinstein, scribed for Kemal Thorpe MD. on 02/03/19 at 1911. Scribe Documentation Reviewed: Yes Provider Attestation: The documentation as recorded by the scribe, Dasia Farah accurately reflects the service I personally performed and the decisions made by me, Kemal Thorpe MD. Status of Ranjanaibe Document: Viewed
--- NOTE | 2019-02-03 20:05 | UC ---
- Progress Note Progress Note: Pt admitted for Psych. They requested labs. EKG: Time of EKG 1952. Normal sinus rate of 84. Normal axis, intervals and ST segments. Borderline right axis Laboratories pending. - Consult/PCP Time Called: 16:39 Course/Dx - Diagnoses Provider Diagnoses: Paranoia Discharge - Sign-Out/Discharge Documenting (check all that apply): Patient Departure - Discharge Plan Condition: Stable [facility] [place] Referrals: Barbara Lomeli DO [Primary Care Provider] - - Billing Disposition and Condition Condition: STABLE Disposition: Psychiatric Facility [facility] [place]
[2019-02-03] MEDS ORDERED: Al Hydrox/Mg Hydrox/Simet LIQ* 30 ML UDC PO PRN (20:07)
[2019-02-03] MEDS ORDERED: clonazePAM TAB(*) 0.5 MG PO PRN (20:08)
[2019-02-03 20:09] LABS: Hematocrit 41 % (33-41); Hemoglobin 14.1 g/dL (12.0-16.0); Mean Corpuscular HGB Conc 34 g/dL (31-36); Mean Corpuscular Hemoglobin 30 pg (27-31); Mean Corpuscular Volume 88 fL (80-97); Mean Platelet Volume 7.3 fL (7.4-10.4); Platelet Count 347 10^3/uL (150-450); Red Cell Distribution Width 13 % (10.5-15); White Blood Count 5.7 10^3/uL (3.5-10.8)
[2019-02-03 20:12] LABS: ABS Basophils 0 10^3/ul (0-0.2); ABS Eosinophils 0.2 10^3/ul (0-0.6); ABS Monocytes 0.4 10^3/ul (0-0.8); ABS Nucleated RBC 0 10^3/ul; Eosinophil % 3.6 %; Lymphocyte % 17.3 %; Nucleated Red Blood Cells % 0
[2019-02-03 20:14] LABS: Urine Appearance Clear; Urine Bilirubin Negative (Negative); Urine Blood Negative (Negative); Urine Color Yellow; Urine Glucose Negative (Negative); Urine Ketones Negative (Negative); Urine Nitrite Negative (Negative); Urine Protein Negative (Negative); Urine Specific Gravity 1.019 (1.010-1.030); Urine Urobilinogen Negative (Negative)
[2019-02-03] MEDS ORDERED: Polyethyl Glycol/Propylene Gly OPHTH.SOLN BOTH EYES PRN (20:14)
[2019-02-03 20:21] LABS: ALT 15 U/L (7-52); AST 14 U/L (13-39); Albumin/Globulin Ratio 1.7 (1-3); Alkaline Phosphatase 68 U/L (34-104); Anion Gap 4 mmol/L (2-11); BUN/Creatinine Ratio 24.3 (8-20); Blood Urea Nitrogen 17 mg/dL (6-24); CO2 Carbon Dioxide 34 mmol/L (22-32); Calcium 9.1 mg/dL (8.6-10.3); Chloride 103 mmol/L (101-111); EGFR African American 102.9 (>60); EGFR Non-African American 85.1 (>60); Globulin 2.4 g/dL (2-4); Glucose 127 mg/dL (70-100); Potassium 3.8 mmol/L (3.5-5.0); Sodium 141 mmol/L (135-145); Total Protein 6.4 g/dL (6.4-8.9)
[2019-02-03 20:28] LABS: Acetaminophen < 15 mcg/mL; Alcohol < 10 mg/dL (<10); Salicylate < 2.50 mg/dL (<30)
[2019-02-03 20:43] LABS: TSH (Thyroid Stimulating Horm) 0.52 mcIU/mL (0.34-5.60)
[2019-02-03 20:43] LABS: Urine Benzodiazepine Screen Presumptive Positive (None Detect); Urine Opiates Screen None Detected (None Detect)
[2019-02-03] MEDS: clonazePAM TAB(*) 1 MG PO SCH (21:46)
[2019-02-04 08:15] LABS: HDL Cholesterol 85.8 mg/dL
[2019-02-04] MEDS: Cholecalciferol TAB* 1000 UNITS PO SCH (08:48)
[2019-02-04] MEDS: Pantoprazole TAB * 40 MG TAB PO SCH (08:48)
[2019-02-04] MEDS: Vitamin THERAPEUTIC TAB PO SCH (08:49)
[2019-02-04] MEDS ORDERED: Polyethylene Glycol 3350* 17 GM PACKET PO SCH (09:00)
[2019-02-04] MEDS: risperiDONE-M * 1 MG TAB.ORADIS PO SCH ×2 (13:03→21:56)
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
[2019-02-04] MEDS: clonazePAM TAB(*) 1 MG PO SCH (21:56)
[2019-02-04] MEDS: CMC:ClomiPRAMINE (NF) 25 MG CAP PO SCH (21:57)
[2019-02-05] MEDS: Docusate CAP* 100 MG PO SCH (08:15)
[2019-02-05] MEDS: Cholecalciferol TAB* 1000 UNITS PO SCH (08:15)
[2019-02-05] MEDS: Pantoprazole TAB * 40 MG TAB PO SCH (08:16)
[2019-02-05] MEDS: risperiDONE-M * 1 MG TAB.ORADIS PO SCH ×2 (08:16→20:28)
[2019-02-05] MEDS: Vitamin THERAPEUTIC TAB PO SCH (08:16)
[2019-02-05] MEDS: Polyethylene Glycol 3350* 17 GM PACKET PO PRN (08:18)
[2019-02-05] MEDS: clonazePAM TAB(*) 1 MG PO SCH (20:27)
[2019-02-05] MEDS: CMC:ClomiPRAMINE (NF) 25 MG CAP PO SCH (20:28)
--- NOTE | 2019-02-05 21:39 | CONS ---
CONSULTATION REPORT: DATE OF CONSULT: 02/05/19 CONSULTING PROVIDER: Steve Leyva MD REFERRING PHYSICIAN: Dr. Ulrich or Dr. Chaidez, psychiatry. REASON FOR CONSULT: Chest pain. CHIEF COMPLAINT: Chest pain. HISTORY OF PRESENT ILLNESS: Thalia Craig is a 63-year-old female with past medical history of IBS, osteoporosis, lumbar disk bulging, somatization, OCD with psychotic features, major depressive disorder. She was readmitted on 02/03 after having increased paranoid thoughts in the setting of stopping her risperidone and clomipramine as an outpatient after she saw her outpatient psychiatrist. Paranoid ideation regarding delusions that Medicare and [employer] fraud was being performed by apparently her daughter. She reports at 4 a.m., she was awoken from sleep when they were "checking the doors" and had developed intense greater that 10/10 pain that is both sharp and pressure like in her chest. She was crying in pain, clutching her chest in a position. She tried to later on brush her teeth, but was not able to do so because of the pain. She eventually around 7:30 told someone about the pain. At that time , it was about 7.5/10. She attested that she thought she may be having a panic attack. She thought some of her clonazepam seemed to improve her symptoms somewhat. Again, with the later assessment with afternoon nurse, she again attested that she was still having some chest pressure and sharp pains, now 5/ 10. Hospital service was consulted for evaluation. An EKG has been obtained, which showed normal sinus rhythm, no ST elevations or depressions, poor R-wave progression, normal intervals, normal axis. There is no significant change since 02/03/19 admission. Troponin was also obtained 0.00 at 3 p.m. approximately 11 hours after the initiation of this chest pressure. Chest x- ray has since been obtained. It shows no active cardiopulmonary disease. She reports that the clomipramine had caused her bleeding from her mouth, bleeding "clots" on the skin of her bilateral forearms and rectal bleeding and that is why she has to stop it. She refused it last night. She denies fevers. Has chronic chills. No abdominal pain. Not currently having any bleeding per rectum or mouth. PAST MEDICAL HISTORY: 1. Major depressive disorder with psychotic features. 2. Obsessive-compulsive disorder. 3. Somatization disorder. 4. Irritable bowel disease. 5. Osteoporosis. 6. Lumbar disk bulging. 7. Reduced hearing acuity. MEDICATIONS: Currently include: 1. Protonix 40 mg daily. 2. MiraLAX 17 g p.o. daily p.r.n. 3. Risperdal 1 mg p.o. b.i.d. 4. Docusate 100 mg daily. 5. Clonazepam 1 mg p.o. at bedtime and 0.5 mg p.o. b.i.d. p.r.n. 6. Clomipramine 50 mg p.o. at bedtime (has been refusing). 7. Cholecalciferol 2000 units p.o. daily. ALLERGIES: PERCOCET, ELAVIL, AZITHROMYCIN, BUPROPION, BUSPIRONE, CEFUROXIME, OSTEO BI-FLEX, CITALOPRAM, CODEINE, DEXILANT, , DEPAKOTE, DOXYCYCLINE, DULOXETINE, ERYTHROMYCIN, LEXAPRO, NEXIUM, FLUOXETINE, GLUCOSAMINE, MUCINEX, ROBAXIN, FLAGYL, ASMANEX, NALBUPHINE, NEFAZODONE, MACROBID, NOROXIN, NSAIDS, OXYCODONE, PAROXETINE, PENICILLIN, PREDNISONE, RANITIDINE, SUDAFED, VIOXX, SERTRALINE, SULFA, TRAMADOL, BACTRIM, VENLAFAXINE, PROBIOTICS, and PROPERIDINE. SOCIAL HISTORY: Denies smoking. Denies drug use. Formerly lived in [place]. and 3 times. She is a full code. Medical surrogate is her daughter, Erin Cotton. FAMILY HISTORY: Mother has Alzheimer disease. PHYSICAL EXAMINATION: General Appearance: No acute distress, ambulating in hallways. Vital Signs: Temperature this morning 99.3, pulse rate 98, respiratory rate 16, satting 100% on room air, blood pressure 105/55. HEENT: Normocephalic, atraumatic. Pupils equal, round, and reactive to light. Extraocular motions are intact. No scleral icterus. Moist mucous membranes. Lungs: Clear to auscultation bilaterally with no wheezing, rales, or rhonchi. Cardiovascular: Regular rate and rhythm. No murmurs, rubs, or gallops. Abdomen : Soft, nontender, nondistended. No rebound or guarding. No Holbrook's sign. Extremities: Warm, well perfused. No peripheral edema. Skin: No lesions. No rashes. Neuro: Cranial nerves II through XII intact. Moving all extremities. Application Design Engineer intact. Sensation intact. Gait stable. LABORATORY DATA: Labs from 02/03/19, white count 5.7, hemoglobin 14.1, hematocrit 41, platelets 347. Sodium 141, potassium 3.8, chloride 103, carbon dioxide 34, BUN 17, creatinine 0.70, glucose 127. Hemoglobin A1c from 02/04/19 is 5.8. Total bili 0.5, AST 14, ALT 15, alk phos 68. Triglycerides 87, cholesterol 236, LDL 133, HDL 86. Troponin 0.00 obtained at 1518. TSH 0.52. Urinalysis is within normal limits. Toxicology: Salicylates less than 2.5, acetaminophen less than 15, acetone is presumptive positive, serum alcohol less than 10. IMAGING: Chest x-ray, no acute cardiopulmonary process. EKG, normal sinus rhythm, normal axis, normal intervals, poor R-wave progression, no ST elevation , depressions. ASSESSMENT AND PLAN: Thalia Craig is a 63-year-old female with past medical history of major depression with psychotic features, somatization disorder and 20 to 30+ allergies listed, complaining of chest pressure with normal EKG, normal chest x- ray, normal troponin. Note the troponin was obtained 11 hours after initiation of these symptoms, which did improve somewhat with the clonazepam. Also of note will be she did not eat much at all yesterday, states she was feeling terrible. Denies any history of acid reflux like symptoms and states she has been tolerating food today. Placed on ACS and ruled out. We will check vital signs and if any signs of hypoxia or tachycardia , we could consider adding on a D-dimer, getting a CTA to rule out a pulmonary embolism, but I think most likely differential includes panic attacks and her somatization disorder. No known history of coronary artery disease. I will repeat the EKG in the morning along with the troponin. Of note, she is quite insistent that clomipramine is causing bleeding blisters, rectal bleeding and bleeding from her mouth as an outpatient and this is still being listed as one of her current medications. If any corroboratory evidence could be obtained from her daughter or outpatient psychiatrist, that would be helpful. Otherwise, psych managements of her obsessive-compulsive disorder, depression with psychotic features as per Psychiatry. We will continue to follow along. Please call with any questions. [id number]/[facility] #: [id number] JENNIFER
[2019-02-06 07:16] LABS: ABS Basophils 0 10^3/ul (0-0.2); ABS Eosinophils 0.1 10^3/ul (0-0.6); ABS Lymphocytes 0.8 10^3/ul (1.0-4.8); ABS Monocytes 0.3 10^3/ul (0-0.8); ABS Neutrophils 2.7 10^3/ul (1.5-7.7); ABS Nucleated RBC 0 10^3/ul; Eosinophil % 3.5 %; Hematocrit 40 % (33-41); Hemoglobin 13.4 g/dL (12.0-16.0); Lymphocyte % 19.6 %; Mean Corpuscular HGB Conc 33 g/dL (31-36); Mean Corpuscular Hemoglobin 30 pg (27-31); Mean Corpuscular Volume 89 fL (80-97); Mean Platelet Volume 7.4 fL (7.4-10.4); Nucleated Red Blood Cells % 0.1; Platelet Count 311 10^3/uL (150-450); Red Blood Count 4.53 10^6 /uL (3.70-4.87); Red Cell Distribution Width 14 % (10.5-15)
[2019-02-06 07:33] LABS: Albumin 3.8 g/dL (3.2-5.2); Albumin/Globulin Ratio 1.7 (1-3); BUN/Creatinine Ratio 24.7 (8-20); Calcium 8.8 mg/dL (8.6-10.3); EGFR African American 92.2 (>60); EGFR Non-African American 76.2 (>60); Globulin 2.2 g/dL (2-4); Potassium 4.1 mmol/L (3.5-5.0); Total Bilirubin 0.7 mg/dL (0.2-1.0)
[2019-02-06] MEDS: Docusate CAP* 100 MG PO SCH (08:22)
[2019-02-06] MEDS: risperiDONE-M * 1 MG TAB.ORADIS PO SCH ×2 (08:22→20:15)
[2019-02-06] MEDS: Pantoprazole TAB * 40 MG TAB PO SCH (08:22)
[2019-02-06] MEDS: Polyethylene Glycol 3350* 17 GM PACKET PO PRN (08:24)
[2019-02-06] MEDS: Cholecalciferol TAB* 1000 UNITS PO SCH (08:25)
[2019-02-06] MEDS: Vitamin THERAPEUTIC TAB PO SCH (08:26)
--- NOTE | 2019-02-06 15:56 | PN ---
Subjective Date of Service: 02/06/19 Interval History: Thalia reports no further episodes of chest pain. denies n/v/d. Denies fever or chills. denies abd pain n/v/d She is refusing any further testing in regards to her chest pain at this time. Chest x ray was negative Trop on this Am blood work was negative EKG no acute ST changes Family History: Unchanged from Admission Social History: Unchanged from Admission Past Medical History: Unchanged from Admission Objective Active Medications: Al Hydrox/Mg Hydrox/Simethicone (Maalox Plus*) 30 ml PO Q4H PRN PRN Reason: INDIGESTION Cholecalciferol (Vitamin D Tab*) 2,000 units PO DAILY [facility] Last Admin: 02/06/19 08:25 Dose: Not Given Clomipramine HCl (Clomipramine (Nf)) 50 mg PO BEDTIME [facility] Last Admin: 02/05/19 20:28 Dose: Not Given Clonazepam (Klonopin Tab(*)) 0.5 mg PO BID PRN PRN Reason: ANXIETY Last Admin: 02/05/19 07:41 Dose: 0.5 mg Clonazepam (Klonopin Tab(*)) 1 mg PO BEDTIME [facility] Last Admin: 02/05/19 20:27 Dose: 1 mg Docusate Sodium (Colace Cap*) 100 mg PO DAILY [facility] Last Admin: 02/06/19 08:22 Dose: 100 mg Multivitamins (Theragran Tab*) 1 tab PO DAILY [facility] Last Admin: 02/06/19 08:26 Dose: Not Given Pantoprazole Sodium (Protonix Tab*) 40 mg PO DAILY [facility] Last Admin: 02/06/19 08:22 Dose: 40 mg Polyethyl Glycol/Propylene Glycol (Lubricant Eye Drops) 2 drop BOTH EYES BID PRN PRN Reason: DRY EYE Polyethylene Glycol/Electrolytes (Miralax*) 17 gm PO DAILY PRN PRN Reason: CONSTIPATION Last Admin: 02/06/19 08:24 Dose: 17 gm Risperidone (Risperdal-M Tab *) 1 mg PO BID [facility]; Protocol Last Admin: 02/06/19 08:22 Dose: 1 mg Vital Signs - 8 hr 02/06/19 11:25 Respiratory 18 Rate Oxygen Devices in Use Now: None Appearance: calm, alert and oriented x 3, no acute distress Eyes: No Scleral Icterus Ears/Nose/Mouth/Throat: Clear Oropharnyx, Mucous Membranes Moist Neck: NL Appearance and Movements; NL JVP, Trachea Midline Respiratory: Symmetrical Chest Expansion and Respiratory Effort, Clear to Auscultation Cardiovascular: NL Sounds; No Murmurs; No JVD, No Edema Abdominal: NL Sounds; No Tenderness; No Distention Extremities: No Edema, No Clubbing, Cyanosis Skin: No Rash or Ulcers Neurological: Alert and Oriented x 3 Nutrition: Taking PO's Result Diagrams: 02/06/19 06:59 02/06/19 06:59 Assess/Plan/Problems-Billing Assessment: Hs. Craig is a 63 y.o female with a pmhx of depression, ocd, somatization disorder and IBS who is currently admitted on the [facility] and c/o chest pain . We were asked to consult do to her chest pain - Patient Problems (1) Chest pain Current Visit: Yes Status: Acute Code(s): R07.9 - CHEST PAIN, UNSPECIFIED SNOMED Code(s): 40373666 Comment: - reports that chest pain has resolved -Trop - negative this AM - refused repeat EKG - Refused any further testing (2) Major depression with psychotic features Current Visit: No Status: Acute Code(s): F32.3 - MAJOR DEPRESSV DISORD, SINGLE EPSD, SEVERE W PSYCH FEATURES SNOMED Code(s): 845251380 Comment: management per psych (3) Anxiety with somatization Current Visit: No Status: Chronic Code(s): F41.9 - ANXIETY DISORDER, UNSPECIFIED; F45.0 - SOMATIZATION DISORDER SNOMED Code(s): 79168483 Comment: management per psych (4) OCD (obsessive compulsive disorder) Current Visit: No Status: Chronic Code(s): F42.9 - OBSESSIVE-COMPULSIVE DISORDER, UNSPECIFIED SNOMED Code(s): 661461456 Status and Disposition: We will sign off on care of this patient as she is declining further testing for her chest pain. Please don't hesitate to contact us with any further medical care needs.
[2019-02-06] MEDS: clonazePAM TAB(*) 1 MG PO SCH (20:15)
[2019-02-06] MEDS: CMC:ClomiPRAMINE (NF) 25 MG CAP PO SCH (20:17)
[2019-02-07] MEDS: Cholecalciferol TAB* 1000 UNITS PO SCH (08:10)
[2019-02-07] MEDS: risperiDONE-M * 1 MG TAB.ORADIS PO SCH ×2 (08:10→20:11)
[2019-02-07] MEDS: Docusate CAP* 100 MG PO SCH (08:10)
[2019-02-07] MEDS: Pantoprazole TAB * 40 MG TAB PO SCH (08:10)
[2019-02-07] MEDS: Polyethylene Glycol 3350* 17 GM PACKET PO PRN (08:11)
[2019-02-07] MEDS: Vitamin THERAPEUTIC TAB PO SCH (08:12)
--- NOTE | 2019-02-07 16:25 | PN ---
Subjective - Subjective Date of Service: 02/07/19 Service Type: 54277 Hosp care 35 min high complexity Subjective: Patient met with treatment team along with her daughter, Dominique. Discussed events leading to admission and recommendations for treatment. Patient presents as irritable and defensive. She exhibits persecutory delusions and defense mechanisms. She reports irrational side effects in relation to clomipramine that were not apparent when she was taking this medication during previous hospitalization. She agrees to reinstate clonazepam and risperidone, that stopping these was a "mistake." Objective - General Observations Appearance: Neat Stature: Thin Posture: Tense Eye Contact: Intense Behavior/Activity: Slowed - Interaction Observations Attitude Towards Examiner: Anxious, Defensive Stated Mood: Anxious Affect: Restricted Speech Pattern/Tone: Delayed, Quiet Volume Thought Process: Disorganized Perception: WNL Thought Content: Paranoid Thought Process: Lethality: Paranoid Ideation Hallucination Type: Denies Delusion Type: Persecution, Somatic - Cognitive Function Orientation: A&O x 4 Level of Consciousness: Alert Cognition: WNL Estimated Intelligence: Normal Insight: Difficulty Acknowledging Presence of Psyciatric Problems Judgment Within Normal Limits: No Ability to Make Reasonable Decisions: Serverely Impaired - Medication Compliance Cooperative with Inpatient Medication Regimen: Partial - Group Participation Participates in Group Activities: Yes Assessment - Assessment Merits Inpatient Hospitalization: For Immediate Safety, For Stabilization Inpatient DSM-V Dx: F42.9 Clinical Impression: 63yo wf who presented to ED for the third time since November of this year with psychosis after stopping medications in outpatient setting. During previous hospitalizaiton, she improved greatly with risperidone and and beginning titration of clomipramine. She has a history of OCD and MDD with psychotic features along with somatization d/o and believes most serotinergic medications cause intolerable side effects. She merits hospitalization for immediate safety. [facility] [place] [facility] for longer to stabilization. Plan - Plan Treatment Plan: Name: SHANNAN SCHMIDT Birthdate: 1955 [id number] continue acute intensive psychiatric treatment. may decrease to q30min and allow staff pass. decrease clomipramine to 25mg qhs, continue other medications as ordered. consider referral to [facility]. Continued Medication Management: Start Medication Medications: Current Medications Al Hydrox/Mg Hydrox/Simethicone (Maalox Plus*) 30 ml PO Q4H PRN PRN Reason: INDIGESTION Cholecalciferol (Vitamin D Tab*) 2,000 units PO DAILY [facility]I Last Admin: 02/07/19 08:10 Dose: Not Given Clomipramine HCl (Clomipramine (Nf)) 25 mg PO BEDTIME [facility] Clonazepam (Klonopin Tab(*)) 0.5 mg PO BID PRN PRN Reason: ANXIETY Last Admin: 02/05/19 07:41 Dose: 0.5 mg Clonazepam (Klonopin Tab(*)) 1 mg PO BEDTIME [facility]I Last Admin: 02/06/19 20:15 Dose: 1 mg Docusate Sodium (Colace Cap*) 100 mg PO DAILY [facility]I Last Admin: 02/07/19 08:10 Dose: 100 mg Multivitamins (Theragran Tab*) 1 tab PO DAILY [facility] Last Admin: 02/07/19 08:12 Dose: Not Given Pantoprazole Sodium (Protonix Tab*) 40 mg PO DAILY [facility] Last Admin: 02/07/19 08:10 Dose: 40 mg Polyethyl Glycol/Propylene Glycol (Lubricant Eye Drops) 2 drop BOTH EYES BID PRN PRN Reason: DRY EYE Polyethylene Glycol/Electrolytes (Miralax*) 17 gm PO DAILY PRN PRN Reason: CONSTIPATION Last Admin: 02/07/19 08:11 Dose: 17 gm Risperidone (Risperdal-M Tab *) 1 mg PO BID [facility]I; Protocol Last Admin: 02/07/19 08:10 Dose: 1 mg - Discharge Plan Discharge Plan: Inpatient Hospitalization
[2019-02-07] MEDS: CMC:ClomiPRAMINE (NF) 25 MG CAP PO SCH (20:11)
[2019-02-07] MEDS: clonazePAM TAB(*) 1 MG PO SCH (20:11)
[2019-02-08] MEDS: Pantoprazole TAB * 40 MG TAB PO SCH (08:17)
[2019-02-08] MEDS: Docusate CAP* 100 MG PO SCH ×2 (08:17→20:05)
[2019-02-08] MEDS: risperiDONE-M * 1 MG TAB.ORADIS PO SCH ×2 (08:17→20:05)
[2019-02-08] MEDS: Polyethylene Glycol 3350* 17 GM PACKET PO PRN (08:18)
[2019-02-08] MEDS: Cholecalciferol TAB* 1000 UNITS PO SCH ×2 (09:01→15:30)
[2019-02-08] MEDS: Vitamin THERAPEUTIC TAB PO SCH (09:01)
[2019-02-08] MEDS ORDERED: Bisacodyl SUPP* 10 MG SUPP PR PRN (13:08)
--- NOTE | 2019-02-08 13:50 | PN ---
Subjective - Subjective Date of Service: 02/08/19 Service Type: 89307 Hosp care 15 min low complexity Subjective: Patient reports onset of joint pain in her back, legs and fingers. She attributes this to first dose of clomipramine last evening. notified of plan to pursue referral to [facility]. She states "you people are going to do whatever you want to do. I don't have any rights to nothing." Generation Manager attempts to explain rationale but is met with inaccurate defenses from patient. Patient is instructed to speak with LS in regards to patient rights and critical access hospital hospital referral. Patient states "There's nothing she [Hillary] can do." Patient requests suppository due to impacted stool. Objective - General Observations Appearance: Neat Stature: Thin Posture: Slumped Eye Contact: Avoidant Behavior/Activity: Slowed - Interaction Observations Attitude Towards Examiner: Anxious, Defensive Stated Mood: Dysphoric Affect: Restricted Speech Pattern/Tone: Clear, Appropriate Thought Process: Over Inclusive, Impoverished Perception: WNL Thought Content: Preoccupation/Ruminations, Depressive, Paranoid, Self- Deprecatory Hallucination Type: Denies Delusion Type: Somatic - Cognitive Function Orientation: A&O x 4 Level of Consciousness: Alert Cognition: Impaired Fund of Knowledge Estimated Intelligence: Normal Insight: Difficulty Acknowledging Presence of Psyciatric Problems Judgment Within Normal Limits: No Ability to Make Reasonable Decisions: Serverely Impaired - Medication Compliance Cooperative with Inpatient Medication Regimen: Yes - Group Participation Participates in Group Activities: Yes Assessment - Assessment Merits Inpatient Hospitalization: For Immediate Safety, For Stabilization Clinical Impression: 63yo wf who presented to ED for the third time since November of this year with psychosis after stopping medications in outpatient setting. During previous hospitalization, she improved greatly with risperidone and beginning titration of clomipramine. She has a history of OCD and MDD with psychotic features along with somatization d/o and believes most serotinergic medications cause intolerable side effects. She merits hospitalization for immediate safety. [facility] is pursuing referral to [facility] for longer stabilization. Plan - Plan Treatment Plan: Name: SHANNAN SCHMIDT Birthdate: 1955 [id number] continue acute intensive psychiatric treatment. may decrease to q30min and allow staff pass. add dulcolax supp prn, increase docusate to BID, continue other medications as ordered. consider referral to [facility]. Continued Medication Management: Start Medication Medications: Current Medications Al Hydrox/Mg Hydrox/Simethicone (Maalox Plus*) 30 ml PO Q4H PRN PRN Reason: INDIGESTION Bisacodyl (Dulcolax Supp*) 10 mg [place] DAILY PRN PRN Reason: CONSTIPATION Cholecalciferol (Vitamin D Tab*) 1,000 units PO DAILY [facility] Clomipramine HCl (Clomipramine (Nf)) 25 mg PO BEDTIME LANI Last Admin: 02/07/19 20:11 Dose: 25 mg Clonazepam (Klonopin Tab(*)) 0.5 mg PO BID PRN PRN Reason: ANXIETY Last Admin: 02/05/19 07:41 Dose: 0.5 mg Clonazepam (Klonopin Tab(*)) 1 mg PO BEDTIME LANI Last Admin: 02/07/19 20:11 Dose: 1 mg Docusate Sodium (Colace Cap*) 100 mg PO DAILY [facility] Last Admin: 02/08/19 08:17 Dose: 100 mg Multivitamins (Theragran Tab*) 1 tab PO DAILY [facility] Last Admin: 02/08/19 09:01 Dose: Not Given Pantoprazole Sodium (Protonix Tab*) 40 mg PO DAILY [facility] Last Admin: 02/08/19 08:17 Dose: 40 mg Polyethyl Glycol/Propylene Glycol (Lubricant Eye Drops) 2 drop BOTH EYES BID PRN PRN Reason: DRY EYE Polyethylene Glycol/Electrolytes (Miralax*) 17 gm PO DAILY PRN PRN Reason: CONSTIPATION Last Admin: 02/08/19 08:18 Dose: 17 gm Risperidone (Risperdal-M Tab *) 1 mg PO BID [facility]; Protocol Last Admin: 02/08/19 08:17 Dose: 1 mg - Discharge Plan Discharge Plan: Consider Longer Term Tx
[2019-02-08] MEDS: clonazePAM TAB(*) 1 MG PO SCH (20:04)
[2019-02-08] MEDS: CMC:ClomiPRAMINE (NF) 25 MG CAP PO SCH (20:06)
[2019-02-09] MEDS: Docusate CAP* 100 MG PO SCH ×2 (08:12→20:02)
[2019-02-09] MEDS: risperiDONE-M * 1 MG TAB.ORADIS PO SCH ×2 (08:12→20:01)
[2019-02-09] MEDS: Cholecalciferol TAB* 1000 UNITS PO SCH (08:12)
[2019-02-09] MEDS: Multivitamins ADULT w/MIN LIQ* 15 ML UDC PO SCH (08:13)
[2019-02-09] MEDS: Pantoprazole TAB * 40 MG TAB PO SCH (08:13)
[2019-02-09] MEDS: Polyethylene Glycol 3350* 17 GM PACKET PO PRN (08:14)
--- NOTE | 2019-02-09 14:34 | PN ---
Subjective - Subjective Date of Service: 02/09/19 Service Type: 57855 Hosp care 25 min moderate complexity Subjective: Patient endorses feeling "worried" about transfer to [facility]. Mortar Man validated and expressed support. Discussed potential for more resources and therapies available at [facility]. Patient appeared more at ease after conversation. Mortar Man spoke with patient's daughter, Dominique. Informed of Thalia's acceptance to [facility] and pending bed date. Objective - General Observations Appearance: Neat Stature: Thin Posture: WNL Eye Contact: Average Behavior/Activity: Slowed - Interaction Observations Attitude Towards Examiner: Cooperative, Anxious Stated Mood: Dysphoric, Anxious Affect: Flat Speech Pattern/Tone: Delayed, Quiet Volume Thought Process: Impoverished Perception: WNL Thought Content: Depressive, Self-Deprecatory Hallucination Type: None Delusion Type: Somatic - Cognitive Function Orientation: A&O x 4 Level of Consciousness: Alert Cognition: WNL Estimated Intelligence: Normal Insight: Difficulty Acknowledging Presence of Psyciatric Problems Judgment Within Normal Limits: No Ability to Make Reasonable Decisions: Serverely Impaired - Medication Compliance Cooperative with Inpatient Medication Regimen: Yes - Group Participation Participates in Group Activities: Yes Assessment - Assessment Merits Inpatient Hospitalization: For Immediate Safety, For Stabilization Inpatient DSM-V Dx: F42.9 Clinical Impression: 63yo wf who presented to ED for the third time since November of this year with psychosis after stopping medications in outpatient setting. During previous hospitalization, she improved greatly with risperidone and beginning titration of clomipramine. She has a history of OCD and MDD with psychotic features along with somatization d/o and believes most serotinergic medications cause intolerable side effects. She merits hospitalization for immediate safety. [facility] is pursuing referral to [facility] for longer stabilization. Plan - Plan Treatment Plan: Name: THALIA SCHMIDT Birthdate: 1955 [id number] continue acute intensive psychiatric treatment. may decrease to q30min and allow staff pass. accepted to [facility], pending bed date. Medications: Current Medications Al Hydrox/Mg Hydrox/Simethicone (Maalox Plus*) 30 ml PO Q4H PRN PRN Reason: INDIGESTION Bisacodyl (Dulcolax Supp*) 10 mg [place] DAILY PRN PRN Reason: CONSTIPATION Last Admin: 02/09/19 12:38 Dose: 10 mg Cholecalciferol (Vitamin D Tab*) 1,000 units PO DAILY [facility] Last Admin: 02/09/19 08:12 Dose: 1,000 units Clomipramine HCl (Clomipramine (Nf)) 25 mg PO BEDTIME [facility] Last Admin: 02/08/19 20:06 Dose: 25 mg Clonazepam (Klonopin Tab(*)) 0.5 mg PO BID PRN PRN Reason: ANXIETY Last Admin: 02/05/19 07:41 Dose: 0.5 mg Clonazepam (Klonopin Tab(*)) 1 mg PO BEDTIME [facility]I Last Admin: 02/08/19 20:04 Dose: 1 mg Docusate Sodium (Colace Cap*) 100 mg PO BID [facility] Last Admin: 02/09/19 08:12 Dose: 100 mg Multivitamins (Theragran W/Minerals Liq*) 15 ml PO DAILY [facility] Last Admin: 02/09/19 08:13 Dose: 15 ml Pantoprazole Sodium (Protonix Tab*) 40 mg PO DAILY [facility] Last Admin: 02/09/19 08:13 Dose: 40 mg Polyethyl Glycol/Propylene Glycol (Lubricant Eye Drops) 2 drop BOTH EYES BID PRN PRN Reason: DRY EYE Polyethylene Glycol/Electrolytes (Miralax*) 17 gm PO DAILY PRN PRN Reason: CONSTIPATION Last Admin: 02/09/19 08:14 Dose: 17 gm Risperidone (Risperdal-M Tab *) 1 mg PO BID [facility]; Protocol Last Admin: 02/09/19 08:12 Dose: 1 mg - Discharge Plan Discharge Plan: Consider Longer Term Tx
[2019-02-09] MEDS: CMC:ClomiPRAMINE (NF) 25 MG CAP PO SCH (20:00)
[2019-02-09] MEDS: clonazePAM TAB(*) 1 MG PO SCH (20:01)
[2019-02-10] MEDS: Cholecalciferol TAB* 1000 UNITS PO SCH (08:19)
[2019-02-10] MEDS: Docusate CAP* 100 MG PO SCH ×2 (08:19→19:57)
[2019-02-10] MEDS: Pantoprazole TAB * 40 MG TAB PO SCH (08:19)
[2019-02-10] MEDS: risperiDONE-M * 1 MG TAB.ORADIS PO SCH ×2 (08:19→19:57)
[2019-02-10] MEDS: Multivitamins ADULT w/MIN LIQ* 15 ML UDC PO SCH (08:20)
[2019-02-10] MEDS: Polyethylene Glycol 3350* 17 GM PACKET PO PRN (08:21)
[2019-02-10 08:22] VITALS: BP 105/64
--- NOTE | 2019-02-10 14:15 | DCNOTE ---
Subjective - Subjective Service Types: 65570 Hosp DC Day Mgmt complex over 30 min Discharge Date: 02/11/19 Subjective: Patient cooperative with transfer to [facility]. She presents as dysphoric and anxious. Encouraged to utilize clonazepam as needed. Transfer report called to Dr Blaire Martin. Objective - General Observations Appearance: Neat Stature: Thin Posture: WNL Eye Contact: Average Behavior/Activity: Slowed - Interaction Observations Attitude Towards Examiner: Cooperative Stated Mood: Dysphoric Affect: Flat Speech Pattern/Tone: Delayed, Quiet Volume Thought Process: Circumstantial, Impoverished Thought Content: Preoccupation/Ruminations, Depressive, Self-Deprecatory Hallucination Type: Denies Delusion Type: Denies - Cognitive Function Orientation: A&O x 4 Level of Consciousness: Alert Cognition: WNL Estimated Intelligence: Normal Insight: Difficulty Acknowledging Presence of Psyciatric Problems Judgment Within Normal Limits: No Ability to Make Reasonable Decisions: Serverely Impaired - Medication Compliance Cooperative with Inpatient Medication Regimen: Yes - Group Participation Participates in Group Activities: Yes DC Assessment - Assessment Clinical Impression: 63yo wf who presented to ED for the third time since November of this year with psychosis after stopping medications in outpatient setting. During previous hospitalizaiton, she improved greatly with risperidone and and beginning titration of clomipramine. She has a history of OCD and MDD with psychotic features along with somatization d/o and believes most serotinergic medications cause intolerable side effects. She merits hospitalization for immediate safety and for longer to stabilization. Merits Inpatient Hospitalization: Yes Inpatient DSM-V Dx: F42.9 Discharge Planning - Discharge Planning Discharge Plan: Consider Longer Term Tx Recommendations for Continuing Care: Medication Management, Psychotherapy Medications: Current Medications Al Hydrox/Mg Hydrox/Simethicone (Maalox Plus*) 30 ml PO Q4H PRN PRN Reason: INDIGESTION Bisacodyl (Dulcolax Supp*) 10 mg [place] DAILY PRN PRN Reason: CONSTIPATION Last Admin: 02/09/19 12:38 Dose: 10 mg Cholecalciferol (Vitamin D Tab*) 1,000 units PO DAILY [facility] Last Admin: 02/10/19 08:19 Dose: 1,000 units Clomipramine HCl (Clomipramine (Nf)) 25 mg PO BEDTIME [facility]I Last Admin: 02/09/19 20:00 Dose: 25 mg Clonazepam (Klonopin Tab(*)) 0.5 mg PO BID PRN PRN Reason: ANXIETY Last Admin: 02/05/19 07:41 Dose: 0.5 mg Clonazepam (Klonopin Tab(*)) 1 mg PO BEDTIME [facility] Last Admin: 02/09/19 20:01 Dose: 1 mg Docusate Sodium (Colace Cap*) 100 mg PO BID [facility] Last Admin: 02/10/19 08:19 Dose: 100 mg Multivitamins (Theragran W/Minerals Liq*) 15 ml PO DAILY [facility] Last Admin: 02/10/19 08:20 Dose: Not Given Pantoprazole Sodium (Protonix Tab*) 40 mg PO DAILY [facility] Last Admin: 02/10/19 08:19 Dose: 40 mg Polyethyl Glycol/Propylene Glycol (Lubricant Eye Drops) 2 drop BOTH EYES BID PRN PRN Reason: DRY EYE Polyethylene Glycol/Electrolytes (Miralax*) 17 gm PO DAILY PRN PRN Reason: CONSTIPATION Last Admin: 02/10/19 08:21 Dose: 17 gm Risperidone (Risperdal-M Tab *) 1 mg PO BID [facility]; Protocol Last Admin: 02/10/19 08:19 Dose: 1 mg Discharge Planning: Prescriptions provided for discharge [] Yes [x] No Follow up care: transfer to [facility] for state hospitalization. Primary Care Provider, Dr Barbara Lomeli upon discharge from [facility] Patient response to discharge plan: [] eager for discharge [] agreeable with discharge plan [x] ambivalent about discharge [] disagrees with discharge today
[2019-02-10] MEDS: clonazePAM TAB(*) 1 MG PO SCH (19:57)
[2019-02-10] MEDS: CMC:ClomiPRAMINE (NF) 25 MG CAP PO SCH (19:58)
[2019-02-11] MEDS: Pantoprazole TAB * 40 MG TAB PO SCH (07:28)
[2019-02-11] MEDS: Cholecalciferol TAB* 1000 UNITS PO SCH (07:28)
[2019-02-11] MEDS: risperiDONE-M * 1 MG TAB.ORADIS PO SCH (07:28)
[2019-02-11] MEDS: Polyethylene Glycol 3350* 17 GM PACKET PO PRN (07:28)
[2019-02-11] MEDS: Docusate CAP* 100 MG PO SCH (07:28)
[2019-02-11] MEDS: Multivitamins ADULT w/MIN LIQ* 15 ML UDC PO SCH (07:30)
--- NOTE | 2019-02-12 01:17 | DS ---
CC: [facility]; [facility]; Dr. Barbara Lomeli.* DISCHARGE SUMMARY: DATE OF ADMISSION: 02/03/19 DATE OF DISCHARGE: 02/11/19 SUPERVISING PSYCHIATRIST: Kelvin Mccloud MD.* (DICTATED BY CYNTHIA MURPHY NP) JUSTIFICATION FOR ADMISSION: The patient presented to the emergency department due to paranoid ideation, hallucinations, and inability to care for herself after stopping all of her medications. DIAGNOSES: Major depressive disorder with psychotic features, obsessive compulsive disorder, anxiety with somatization. CONDITION AT TIME OF DISCHARGE: Guarded. Patient has been accepted and discharged to [facility] for state hospitalization. She continues to present as dysphoric and anxious with impaired insight and judgment. She is cooperative with transfer and report was called to Dr. Blaire Martin at [facility]. Patient's family notified of transfer. Patient's family is supportive of transfer to state hospitalization. MENTAL STATUS EXAM: A 63-year-old white female who is fatigued and very thin- framed. She is wearing her own clothing and is well groomed. She is a poor historian. She is guarded and presents as anxious. Patient is alert and oriented x3. Eye contact is intermittent and tense at times. Speech is soft with latencies. Mood is dysphoric and anxious. No abnormal psychomotor activity noted. Her thought process is impoverished. Though content is negative for SI, HI, or passive wish. It is positive for paranoid ideations. She denies auditory or visual hallucinations. Insight and judgment are impaired. Fund of knowledge is limited. INSTRUCTIONS GIVEN TO PATIENT: A. Medications: 1. She will continue Dulcolax 10 mg suppository ND daily p.r.n. constipation. 2. Vitamin D 1000 units p.o. daily. 3. Clomipramine 25 mg p.o. q.h.s. 4. Clonazepam 0.5 mg p.o. b.i.d. p.r.n. anxiety, 1 mg p.o. q.h.s. 5. Docusate 100 mg p.o. b.i.d. 6. Multivitamin liquid 15 mL p.o. daily. 7. Pantoprazole 40 mg daily. 8. Lubricant eye drops 2 drops both eyes b.i.d. 9. MiraLAX 17 g p.o. daily p.r.n., constipation. 10. Risperidone M-Tab 1 mg p.o. b.i.d. 11. Acetaminophen 1000 mg p.o. q.6 to 8 hours p.r.n. B. Diet: Regular. Encourage high protein, high fat. C. Activity: Ambulation as tolerated. Tobacco cessation is not applicable. There are no pending labs or diagnostic studies. D. Followup care: The patient is discharged to [facility] for longer stabilization. She will follow up with her primary care provider, Dr. Barbara Lomeli upon return home after EPC. E. Substance use followup is not applicable. HOSPITAL COURSE: Part A: Reason for admission: The patient presented to the emergency department due to paranoid ideation, hallucinations, and inability to care for herself after stopping all of her medications. HISTORY OF PRESENT ILLNESS: Thalia returns to the emergency department after being discharged from my unit on 01/18/19. Her previous hospitalization consisted of slow titration of clomipramine and risperidone due to major depressive disorder and OCD with psychotic features. She went to an appointment with an outpatient psychiatrist and then during the initial meeting , she reported side effects to the medications including joint pain and bleeding from her colon. She stopped taking clomipramine and risperidone and asked the psychiatrist to change clonazepam to alprazolam. Since that time, this entry writer has been communicating with the patient's daughter with whom she lives. The patient has been decompensating quickly including return of paranoid ideation in regard to delusion as she is engaged in Medicare and social security fraud. The patient presents with auditory hallucinations, is guarded and suspicious. The patient daughter reports she began verbalizing in strange and paranoid thoughts within days of stopping risperidone and clomipramine. Patient has a history of somatization disorder, which appears to influence her perception of reactions to serotonergic medications. Her first hospitalization with us was in November of this year. She was started on mirtazapine and stopped taking this in the outpatient setting. According to her daughter, the patient is increasingly isolative, increasingly reclusive to her room. She is accusatory during conversations with the family. Upon approach, the patient is sitting in her room with knees up to her chest. She has an intense stare with long speech latencies. Her lip is quivering at times when she talks. She speaks of topics with vague details and tells me that I "know what is going on". She has impaired insight into mental illness and active symptoms. Patient denies information that she was well related and at baseline at time of discharge earlier this month. Part B: Psychiatric treatment rendered: The patient was admitted to adult behavioral services unit on involuntary status. Her code status is full. She was placed on 15-minutes checks for her safety. We resumed medications, clomipramine at 50 mg p.o. q.h.s., risperidone 1 mg b.i.d. and clonazepam at bedtime and as needed. The patient voiced refusal. In the following few days, she endorsed significant chest pain and was consulted by hospitalist service. She obtained an EKG, a chest x-ray, and there were no acute cardiac concerns. She did agree to risperidone and clonazepam. She had yet to agree to clomipramine. The following day, we had a family meeting with her daughter during which patient was defensive, irritable, and exhibited extremely poor insight and judgment despite collateral information. Patient changed to 2-PC status and referred to state hospitalization. Her reactions to this information were primarily passive disagreement. She exhibited cognitive distortions. By this time, she had started clomipramine at 25 mg. She reported onset of joint pain. Denied other side effects. Patient was accepted to [facility] and given a bed date of today, 02/11/19. CYNTHIA MURPHY, BOLIVAR [id number]/CPS #: [id number] JENNIFER
== END 2019-02-11 08:19 | disposition short-term general hospital (02) | DRG 885 ==
LOC: ED 16:39 → BSU 19:41
PROVIDERS: ADMIT Psychiatry & Neurology Psychiatry; ATTEND Psychiatry & Neurology Psychiatry
DX: F32.3 Major depressive disorder, single episode, severe with psychotic features (principal); Z68.1 Body mass index [BMI] 19.9 or less, adult; F42.9 Obsessive-compulsive disorder, unspecified; F50.9 Eating disorder, unspecified; K58.1 Irritable bowel syndrome with constipation; F41.0 Panic disorder [episodic paroxysmal anxiety]; F43.10 Post-traumatic stress disorder, unspecified; F45.0 Somatization disorder; M81.0 Age-related osteoporosis without current pathological fracture; F44.81 Dissociative identity disorder; H91.93 Unspecified hearing loss, bilateral; R07.9 Chest pain, unspecified; Z88.6 Allergy status to analgesic agent; Z88.1 Allergy status to other antibiotic agents; Z88.5 Allergy status to narcotic agent; Z88.0 Allergy status to penicillin; Z88.2 Allergy status to sulfonamides; Z88.8 Allergy status to other drugs, medicaments and biological substances; Z97.4 Presence of external hearing-aid; Z91.14 Patient's other noncompliance with medication regimen; Z82.0 Family history of epilepsy and other diseases of the nervous system
CPT/HCPCS: 36415; 71045; 80053; 80061; 80307; 80320; 80329; 81003; 83036; 84443; 84484; 85025; 85379; 93005; 99222; 99231; 99232; 99233; 99238; 99284; A9270-GY; G0480

== ENCOUNTER 2019-05-06 16:48 | Inpatient (IN) | payer MEDICARE, MEDICAID ==
--- OUTSIDE RECORDS SUMMARY | 2019-05-06 17:15 | XMS REPORT ---
:1955 Author Organization [facility] Address [address] [place] [address] Care Team Providers Name Role Phone Clara Beckwith Unavailable Unavailable PROBLEMS Unknown Problems ALLERGIES Substance Reaction Event Type Date Status See list in Patient Documents..... Unknown Non Drug Allergy Apr, Active extensive list Latex Unknown Non Drug Allergy Apr, Active ENCOUNTERS Encounter Location Date Diagnosis [address] Nov, [address] Nov, [address] Apr, [address] Apr, [id number] [facility] [address] [place] [address] Oct, [address] [facility] [address] Oct, [address] Aug, [address] Aug, [address], [place] [address] IMMUNIZATIONS No Known Immunizations SOCIAL HISTORY Never Assessed REASON FOR REFERRAL FUNCTIONAL STATUS PLAN OF CARE Activity Details Follow Up Recare/exp Reason: VITAL SIGNS MEDICATIONS Medication Instructions Dosage Frequency Start End Date Duration Status Date Senna 8.6 MG Orally Once a 2 tablets 24h Active day at bedtime as needed Mirtazapine 30 Orally Once a 1 tablet at 24h Active MG day bedtime Womens Multi Active Vitamin & Mineral - Clonazepam 1 MG Orally Once a 1 tablet 24h Active day Olanzapine 5 MG Orally Once a 1 tablet 24h Active day PROCEDURES Procedure Date Ordered Result Body Site Caries Risk Assess and Doc Medium Risk May 03, 2019 PROPHYLAXIS - ADULT 13yrs and older May 03, 2019 RESULTS No Results REASON FOR VISIT Recare/ex6 Insurance Providers [facility] Member Patient Patient Patient Patient Patient Subscriber Subscriber Subscriber Group Insurance Plan Plan Plan Plan ID Relationship Address Phone Name Date of ID Name Date of No Type Insurance Insurance Insurance Coverage to Subscriber Address Phone Name Dates Medicaid [id number] [phone] Medicaid self Thalia [id number] [facility] [address] [place] [address] [id number] [phone] Medicaid self Thalia [id number] [facility] [address] [facility] Time [address] Time [facility] [phone] Case self Thalia [id number] [employer] [address] [id number] Community Medicare National [id number] Medicare self Thalia [id number] PPS [facility] 41 PPS [facility] [address] [place] [id number] MEDICAL (GENERAL) HISTORY Type Description Date Medical [...]
[2019-05-06 17:34] LABS: ABS Basophils 0.1 10^3/ul (0-0.2); ABS Eosinophils 0.1 10^3/ul (0-0.6); ABS Monocytes 0.3 10^3/ul (0-0.8); Eosinophil % 1.7 %; Hematocrit 41 % (35-47); Hemoglobin 13.8 g/dL (12.0-16.0); Lymphocyte % 17.6 %; Mean Corpuscular HGB Conc 34 g/dL (31-36); Mean Corpuscular Hemoglobin 30 pg (27-31); Mean Corpuscular Volume 88 fL (80-97); Mean Platelet Volume 7.5 fL (7.4-10.4); Platelet Count 308 10^3/uL (150-450); Red Blood Count 4.65 10^6 /uL (3.70-4.87); Red Cell Distribution Width 13 % (10-15); White Blood Count 5.4 10^3/uL (3.5-10.8)
--- NOTE | 2019-05-06 17:40 | ED ---
Psychiatric Complaint - HPI Summary HPI Summary: This patient is a 64 year old F presenting to [facility] accompanied by her daughter with a chief complaint of a mental health complaint described as confusion and paranoia. Daughter states that her mother has been isolating herself more after a recent trip to [place] due to a recent medication change. Her daughter states that her mother has been acting more and more confused and will stare aimlessly. The daughter stated that with the recent medication change her mother has become more somnolent. Her daughter stated that she has constipation along with the confusion. The pts daughter denied any fever, chills, erythema of eyes, sore throat, CP, SOB, cough, abdominal pain, N/V, dysuria, hematuria, myalgia, edema, rash, or dizziness. She denies any SI or HI. The symptoms are aggravated by a recent medication change and alleviated by nothing. The pt has a PMHx of paranoia and OCD, somatization disorder. - History Of Current Complaint Chief Complaint: EDMentalHealth Time Seen by Provider: 05/06/19 16:59 Hx Obtained From: Family/Tool Straightener - daughter Onset/Duration: Gradual Onset, Lasting Weeks, Still Present Timing: Constant Severity Initially: Moderate Severity Currently: Moderate Character: Lethargic Aggravating Factor(s): Other - r Alleviating Factor(s): Nothing Associated Signs And Symptoms: Positive: Negative - fever, chills, erythema of eyes, sore throat, CP, SOB, cough, abdominal pain, N/V, dysuria, hematuria, myalgia, edema, rash, or dizziness., Confused, Social Isolation Related History: Positive For: Prior Psychiatric Issues - medication change Has Suicidal: Denies: Thoughts, With A Plan Has Homicidal: Denies: Thoughts, With A Plan Recent Stressor(s): medication change - Allergies/Home Medications Allergies/Adverse Reactions: Allergies Allergy/AdvReac Type Severity Reaction Status Date / Time acetaminophen [From Percocet] Allergy Unknown Verified 02/03/19 16:48 Reaction Details amitriptyline [From Elavil] Allergy Unknown Verified 02/03/19 16:48 Reaction Details azithromycin [From Zithromax] Allergy Rash Verified 02/03/19 16:48 bupropion Allergy Hives Verified 02/03/19 16:48 [From Wellbutrin SR] buspirone [From BuSpar] Allergy Unknown Verified 02/03/19 16:48 Reaction Details cefuroxime Allergy Eyes Verified 02/03/19 16:48 Itchy/Swollen/Red/Watery chondroitin sulfate A Allergy Hives Verified 02/03/19 16:48 [From Osteo Bi-Flex] citalopram [From Celexa] Allergy Unknown Verified 02/03/19 16:48 Reaction Details codeine Allergy Hives Verified 02/03/19 16:48 dexlansoprazole Allergy Nausea Verified 02/03/19 16:48 [From Dexilant] divalproex sodium Allergy Unknown Verified 02/03/19 16:48 [From Depakote] Reaction Details doxycycline Allergy Unknown Verified 02/03/19 16:48 Reaction Details duloxetine [From Cymbalta] Allergy Hives Verified 02/03/19 16:48 erythromycin base Allergy Unknown Verified 02/03/19 16:48 Reaction Details escitalopram [From Lexapro] Allergy Itching Verified 02/03/19 16:48 esomeprazole [From Nexium] Allergy Stomach Verified 02/03/19 16:48 Cramps fluoxetine [From Prozac] Allergy Hives Verified 02/03/19 16:48 glucosamine Allergy Hives Verified 02/03/19 16:48 guaifenesin [From Mucinex] Allergy Nausea Verified 02/03/19 16:48 Lactobacillus rhamnosus GG Allergy Rash Verified 02/03/19 16:48 [From Culturelle] methocarbamol [From Robaxin] Allergy Hives Verified 02/03/19 16:48 metronidazole Allergy Unknown Verified 02/03/19 16:48 Reaction Details mometasone furoate Allergy Difficulty Verified 02/03/19 16:48 [From Asmanex Twisthaler] Swallowing nalbuphine [From Nubain] Allergy See Comment Verified 02/03/19 16:48 nefazodone [From Serzone] Allergy Hives Verified 02/03/19 16:48 nitrofurantoin Allergy Unknown Verified 02/03/19 16:48 [From Macrobid] Reaction Details norfloxacin [From Noroxin] Allergy Unknown Verified 02/03/19 16:48 Reaction Details NSAIDS (Non-Steroidal Allergy Stomach Verified 02/03/19 16:48 Anti-Inflamma Cramps oxycodone [From Percocet] Allergy Unknown Verified 02/03/19 16:48 Reaction Details paroxetine [From Paxil] Allergy Agitation Verified 02/03/19 16:48 Penicillins Allergy Unknown Verified 02/03/19 16:48 Reaction Details prednisone Allergy See Comment Verified 02/03/19 16:48 pseudoephedrine Allergy See Comment Verified 02/03/19 16:48 [From Sudafed] ranitidine Allergy Dizziness Verified 02/03/19 16:48 rofecoxib [From Vioxx] Allergy Edema Verified 02/03/19 16:48 sertraline [From Zoloft] Allergy Shakes Verified 02/03/19 16:48 Sulfa (Sulfonamide Allergy Unknown Verified 02/03/19 16:48 Antibiotics) Reaction Details tramadol Allergy See Comment Verified 02/03/19 16:48 trimethoprim Allergy Unknown Verified 02/03/19 16:48 Reaction Details venlafaxine [From Effexor] Allergy Agitation Verified 02/03/19 16:48 probiotics Allergy Rash Uncoded 02/03/19 16:48 properidil Allergy See Comment Uncoded 02/03/19 16:48 Home Medications: Home Medications Mirtazapine TAB* [Remeron TAB*] 30 mg PO QPM 05/06/19 [History Confirmed ] OLANzapine TAB* [Zyprexa 5 MG TAB*] 5 mg PO BEDTIME 05/06/19 [History Confirmed 05/06/19] PMH/Surg Hx/FS Hx/Imm Hx Previously Healthy: Yes Cardiovascular History: Reports: Hx Hypotension GI History: Reports: Hx Irritable Bowel, Other GI Disorders - chronic constipation Musculoskeletal History: Reports: Hx Osteoporosis, Other Musculoskeletal History - Lumbar disc issues Sensory History: Reports: Hx Contacts or Glasses, Hx Deafness, Hx Hearing Aid, Hx Hearing Problem Opthamlomology History: Reports: Hx Contacts or Glasses Neurological History: Reports: Other Neuro Impairments/Disorders - reports distant hx possible seizure r/t benzo withdrawal Psychiatric History: Reports: Hx Anxiety, Hx Eating Disorder, Hx Panic Disorder , Hx Post Traumatic Stress Disorder, Hx Inpatient Treatment, Hx Community Mental Health Tx, Other Psychiatric Issues/Disorders - OCD, dissociative identity disorder, PTSD, somatization disorder, SI Denies: Hx Suicide Attempt, Hx of Violent Episodes Against Others Infectious Disease History: No Infectious Disease History: Denies: Traveled Outside the [place] in Last 30 Days - Family History Known Family History: Positive: Other - colon cancer, alzheimer's Negative: Cardiac Disease - Social History Occupation: Disabled Lives: With Family Alcohol Use: None Hx Substance Use: No Substance Use Type: Reports: None Hx Tobacco Use: No Smoking Status (MU): Never Smoked Tobacco Review of Systems Negative: Fever, Chills Negative: Erythema Negative: Sore Throat Negative: Chest Pain Negative: Shortness Of Breath, Cough Negative: Abdominal Pain, Vomiting, Nausea Negative: dysuria, hematuria Negative: Myalgia, Edema Negative: Rash Neurological: Negative - dizziness Positive: Other - confused All Other Systems Reviewed And Are Negative: Yes Physical Exam - Summary Physical Exam Summary: Constitutional: Well-developed, Well-nourished, Alert. (-) Distressed Skin: Warm, Dry HENT: Normocephalic; Atraumatic Eyes: Conjunctiva normal Neck: Musculoskeletal ROM normal neck. (-) JVD, (-) Stridor, (-) Tracheal deviation Cardio: Rhythm regular, rate normal, Heart sounds normal; Intact distal pulses; The pedal pulses are 2+ and symmetric. Radial pulses are 2+ and symmetric. (-) Murmur Pulmonary/Chest wall: Effort normal. (-) Respiratory distress, (-) Wheezes, (-) Rales Abd: Soft, (-) tenderness, (-) Distension, (-) Guarding, (-) Rebound Musculoskeletal: (-) Edema Lymph: (-) Cervical adenopathy Neuro: Alert, Oriented x3 Psych: anxious appearing and flat affect. Triage Information Reviewed: Yes Vital Signs On Initial Exam: Initial Vitals Temp Pulse Resp BP Pulse Ox 99.1 F 94 18 135/64 98 05/06/19 16:49 05/06/19 16:49 05/06/19 16:49 05/06/19 16:49 05/06/19 16:49 Vital Signs Reviewed: Yes Diagnostics - Vital Signs Vital Signs Temp Pulse Resp BP Pulse Ox 05/06/19 16:49 99.1 F 94 18 135/64 98 - Laboratory Result Diagrams: 05/06/19 17:26 05/06/19 17:26 Lab Statement: Any lab studies that have been ordered have been reviewed, and results considered in the medical decision making process. Course/Dx - Course Course Of Treatment: This patient is a 64 year old F presenting to [facility] accompanied by her daughter with a chief complaint of a mental health complaint described as confusion and paranoia. Daughter states that her mother has been isolating herself more after a recent trip to [place] due to a recent medication change. Her daughter states that her mother has been acting more and more confused and will stare aimlessly. Her PE shows that she is anxious and has a flat affect. Her lab tests show no abnormalities. She was medically cleared for a MHU Evaluation. Per Dr. Ulrich, psychiatrist, the pt will be admitted to [facility] with a Dx of Major depressive disorder with psychosis involuntarily. - Differential Dx/Clinical Impression Provider Diagnosis: Major depressive disorder with psychotic features - Physician Notifications Discussed Care Of Patient With: Bertin Ulrich Time Discussed With Above Provider: 19:47 Instructed by Provider To: Admit As Inpatient Discharge - Sign-Out/Discharge Documenting (check all that apply): Patient Departure - admitted involuntarily Patient Received Moderate/Deep Sedation with Procedure: No - Discharge Plan Condition: Stable Disposition: [facility]YCHIATRIC FACILITY[place] Referrals: Barbara Lomeli DO [Primary Care Provider] - - Attestation Statements Document Initiated by Scribe: Yes Documenting Scribe: Dex Robbins Provider For Whom Scribe is Documenting (Include Credential): Lalo Bailey MD Scribe Attestation: Dex Weinstein, scribed for Lalo Bailey MD on 05/06/19 at 1945. Status of Scribe Document: Ready
[2019-05-06 17:44] LABS: Urine Appearance Clear; Urine Bacteria 1+ (Absent); Urine Bilirubin Negative (Negative); Urine Blood Negative (Negative); Urine Color Yellow; Urine Glucose Negative (Negative); Urine Ketones Trace (Negative); Urine Nitrite Negative (Negative); Urine Protein Negative (Negative); Urine Red Blood Cell 2+(6-10/hpf) (Absent); Urine Squamous Epithelial Cell Present (Absent); Urine Urobilinogen Negative (Negative); Urine White Blood Cell 2+(11-20/hpf) (Absent)
[2019-05-06 17:56] LABS: ALT 25 U/L (7-52); AST 20 U/L (13-39); Albumin 4.4 g/dL (3.2-5.2); Albumin/Globulin Ratio 1.6 (1-3); Alkaline Phosphatase 70 U/L (34-104); Anion Gap 6 mmol/L (2-11); BUN/Creatinine Ratio 22.2 (8-20); Blood Urea Nitrogen 18 mg/dL (6-24); CO2 Carbon Dioxide 30 mmol/L (22-32); Calcium 9.4 mg/dL (8.6-10.3); Chloride 106 mmol/L (101-111); EGFR African American 86.7 (>60); EGFR Non-African American 71.6 (>60); Globulin 2.7 g/dL (2-4); Glucose 96 mg/dL (70-100); Potassium 3.6 mmol/L (3.5-5.0); Sodium 142 mmol/L (135-145); Total Protein 7.1 g/dL (6.4-8.9)
[2019-05-06 17:58] LABS: Urine Benzodiazepine Screen None Detected (None Detect); Urine Opiates Screen None Detected (None Detect)
[2019-05-06 18:28] LABS: Acetaminophen < 15 mcg/mL; Alcohol < 10 mg/dL (<10); Salicylate < 2.50 mg/dL (<30)
[2019-05-06 18:40] LABS: TSH (Thyroid Stimulating Horm) 0.75 mcIU/mL (0.34-5.60)
[2019-05-06] MEDS ORDERED: Al Hydrox/Mg Hydrox/Simet LIQ* 30 ML UDC PO PRN (21:32)
[2019-05-06] MEDS ORDERED: Simethicone TAB* 80 MG TAB.CHEW PO PRN (21:46)
[2019-05-06] MEDS: clonazePAM TAB(*) 1 MG PO SCH (22:26)
[2019-05-06] MEDS: Mirtazapine TAB* 15 MG PO SCH (22:27)
[2019-05-06] MEDS: Docusate CAP* 100 MG PO SCH (22:27)
[2019-05-06] MEDS: OLANzapine TAB* 5 MG PO SCH (22:28)
[2019-05-06] MEDS: Polyethylene Glycol 3350* 17 GM PACKET PO SCH (22:52)
[2019-05-07] MEDS ORDERED: Pantoprazole TAB * 40 MG TAB ONE (02:11)
[2019-05-07] MEDS ORDERED: Vitamin THERAPEUTIC TAB ONE (02:11)
[2019-05-07] MEDS: Docusate CAP* 100 MG PO SCH ×2 (09:02→20:10)
[2019-05-07] MEDS: Calcium/Vitamin D TAB 250/125* TAB PO SCH (09:02)
[2019-05-07] MEDS: Vitamin THERAPEUTIC TAB PO SCH (09:03)
[2019-05-07] MEDS: Pantoprazole TAB * 40 MG TAB PO SCH (09:03)
[2019-05-07] MEDS: clonazePAM TAB(*) 1 MG PO SCH (20:08)
[2019-05-07] MEDS: Mirtazapine TAB* 15 MG PO SCH (20:08)
[2019-05-07] MEDS: OLANzapine TAB* 5 MG PO SCH (20:09)
[2019-05-07] MEDS: Polyethylene Glycol 3350* 17 GM PACKET PO SCH (20:17)
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
[2019-05-08] MEDS: Pantoprazole TAB * 40 MG TAB PO SCH (07:55)
[2019-05-08] MEDS: Docusate CAP* 100 MG PO SCH ×2 (07:55→20:30)
[2019-05-08] MEDS: Vitamin THERAPEUTIC TAB PO SCH (07:55)
[2019-05-08] MEDS: Calcium/Vitamin D TAB 250/125* TAB PO SCH (07:55)
[2019-05-08] MEDS: clonazePAM TAB(*) 1 MG PO SCH (20:30)
[2019-05-08] MEDS: Mirtazapine TAB* 15 MG PO SCH (20:31)
[2019-05-08] MEDS: OLANzapine TAB* 5 MG PO SCH (20:31)
[2019-05-08] MEDS: Polyethylene Glycol 3350* 17 GM PACKET PO SCH (20:32)
[2019-05-09 07:46] LABS: HDL Cholesterol 75.4 mg/dL
[2019-05-09] MEDS: Vitamin THERAPEUTIC TAB PO SCH (07:53)
[2019-05-09] MEDS: Calcium/Vitamin D TAB 250/125* TAB PO SCH (07:53)
[2019-05-09] MEDS: Pantoprazole TAB * 40 MG TAB PO SCH (07:53)
[2019-05-09] MEDS: Docusate CAP* 100 MG PO SCH ×2 (07:54→20:45)
--- NOTE | 2019-05-09 15:47 | PN ---
Subjective - Subjective Date of Service: 05/09/19 Service Type: 91340 Hosp care 25 min moderate complexity - Patient mainly focused on somatic complaints such as constipation and trouble hearing. Admits to some depression Subjective: Patient mainly focused on somatic symptoms such as constipation and hearing aid problems. Admits to some depression but does not want to change doses of remeron 30 or zyprexa 5 HS though she thinks that they helped her depression. Does not think that she has paranoia. Had a long stay here and then at [facility], having been discharged in February 2019. Objective - General Observations Appearance: Neat Appears Stated Age: No - appears older than stated age Stature: Thin Posture: WNL Eye Contact: Intermittent Behavior/Activity: Slowed - Interaction Observations Attitude Towards Examiner: Anxious, Confused Stated Mood: Dysphoric Affect: Restricted Speech Pattern/Tone: Quiet Volume Thought Process: Impoverished Perception: WNL Thought Content: Preoccupation/Ruminations Hallucination Type: None Delusion Type: None - Cognitive Function Orientation: A&O x 4 Level of Consciousness: Awake, Alert Cognition: WNL Estimated Intelligence: Normal Insight: Difficulty Acknowledging Presence of Psyciatric Problems Judgment Within Normal Limits: No Ability to Make Reasonable Decisions: Mildly Impaired - Medication Compliance Cooperative with Inpatient Medication Regimen: Partial - Group Participation Participates in Group Activities: Partial - Elaboration on Positive Findings Positive MSE Findings: constricted affect, speaks in a monotone and softly, ruminates about somatic issues Assessment - Assessment Merits Inpatient Hospitalization: For Stabilization, Diagnosis Determination, Consolidate Improvements, Pending Safe DC Plan Inpatient DSM-V Dx: F33.2 Clinical Impression: Has had a long-term depression as well as underlying obsessive compulsive disorder and obsessive-compulsive personality disorder. She has trouble making decisions, which is a problem in planning additional treatments such as increasing medication doses, augmenting with atypical antipsychotic, or even considering ECT. She ruminates about these or even about signing papers for voluntary admission. She may have dementia but pseudodementia cannot be ruled out. She does not want OCD treatment at this time. [facility]: Problem List - Patient Problems (1) Major depression with psychotic features Current Visit: No Status: Acute Priority: High Code(s): F32.3 - MAJOR DEPRESSV DISORD, SINGLE EPSD, SEVERE W PSYCH FEATURES SNOMED Code(s): 287565597 Comment: management per psych (2) OCD (obsessive compulsive disorder) Current Visit: No Status: Chronic Priority: Medium Code(s): F42.9 - OBSESSIVE-COMPULSIVE DISORDER, UNSPECIFIED SNOMED Code(s): 465141545 Comment: she does not want specific psychotherapy or medication for this at this time Plan - Plan Treatment Plan: Name: SHANNAN SCHMIDT Birthdate: 1955 [id number] Continued Medication Management: Continue Outpt Medication Medications: Current Medications Al Hydrox/Mg Hydrox/Simethicone (Maalox Plus*) 30 ml PO Q4H PRN PRN Reason: INDIGESTION Calcium/Vitamin D (Oscal D Tab 250/125*) 1 tab PO DAILY LANI Last Admin: 05/09/19 07:53 Dose: Not Given Clonazepam (Klonopin Tab(*)) 1 mg PO BEDTIME LANI Last Admin: 05/08/19 20:30 Dose: 1 mg Docusate Sodium (Colace Cap*) 100 mg PO BID LANI Last Admin: 05/09/19 07:54 Dose: 100 mg Mirtazapine (Remeron Tab*) 30 mg PO BEDTIME LANI Last Admin: 05/08/19 20:31 Dose: 30 mg Multivitamins (Theragran Tab*) 1 tab PO DAILY LANI Last Admin: 05/09/19 07:53 Dose: Not Given Olanzapine (Zyprexa Tab*) 5 mg PO BEDTIME LANI Last Admin: 05/08/19 20:31 Dose: 5 mg Pantoprazole Sodium (Protonix Tab*) 40 mg PO DAILY LANI Last Admin: 05/09/19 07:53 Dose: Not Given Polyethylene Glycol/Electrolytes (Miralax*) 17 gm PO BEDTIME LANI Last Admin: 05/08/19 20:32 Dose: 17 gm Simethicone (Mylicon Tab*) 80 mg PO Q6H PRN PRN Reason: GAS - Discharge Plan Discharge Plan: Outpatient Follow Up Outpatient Program: [facility]
[2019-05-09] MEDS ORDERED: Senna TAB 8.6 mg* TAB PO PRN (15:56)
[2019-05-09] MEDS: clonazePAM TAB(*) 1 MG PO SCH (20:44)
[2019-05-09] MEDS: Mirtazapine TAB* 15 MG PO SCH (20:45)
[2019-05-09] MEDS: Polyethylene Glycol 3350* 17 GM PACKET PO SCH (20:46)
[2019-05-09] MEDS: OLANzapine TAB* 5 MG PO SCH (20:46)
[2019-05-10] MEDS: Docusate CAP* 100 MG PO SCH ×2 (07:49→20:05)
[2019-05-10] MEDS: Vitamin THERAPEUTIC TAB PO SCH (09:40)
[2019-05-10] MEDS: Calcium/Vitamin D TAB 250/125* TAB PO SCH (09:40)
[2019-05-10] MEDS: Pantoprazole TAB * 40 MG TAB PO SCH (09:40)
[2019-05-10] MEDS: [UNRECOGNIZED DRUG - OTHER] PO SCH (10:54)
[2019-05-10] MEDS: MULTIVITAMIN PO SCH (10:54)
--- NOTE | 2019-05-10 14:35 | PN ---
Subjective - Subjective Service Type: 44634 Hosp care 35 min high complexity Subjective: Patient remains dysphoric and preoccupied with bowel functioning. Does not want a trial of ECT because she says that she heard that it causes memory loss. I spoke with her daughter who said that the patient was beginning to get more suspicious again at home and had done best on clomiprimine, but patient refuses this drug. However, the daughter said that in fact the patient had lifelong OCD and suspiciousness but unraveled after her exhusband in [place] and she began to live with family members. Patient denies suicidality but ruminates and is having trouble organizing herself to function in the community. Reviewed detailed history and medication list including the long list of drugs she says she has had side effects to. I discussed plan to switch Zyprexa to Abilify 5 mg HS and reviewed risks and benefits. She did agree to this plan. Objective - General Observations Appearance: Neat Appears Stated Age: No - appears older than stated age Stature: Thin Posture: Tense Eye Contact: Intense Behavior/Activity: Slowed - Interaction Observations Attitude Towards Examiner: Mistrustful Stated Mood: Dysphoric Affect: Restricted Speech Pattern/Tone: Quiet Volume Thought Process: Coherent Perception: WNL Thought Content: WNL Hallucination Type: None Delusion Type: None - Cognitive Function Orientation: A&O x 4 - Denies delusions to me but is guarded. Has decreased armswing and somewhat masked facies but no tremor. Assessment - Assessment Merits Inpatient Hospitalization: For Stabilization, Consolidate Improvements, For Discharge Planning Inpatient DSM-V Dx: F33.2 Clinical Impression: Has had a long-term depression as well as underlying obsessive compulsive disorder and obsessive-compulsive personality disorder. She has trouble making decisions, which is a problem in planning additional treatments such as increasing medication doses, augmenting with atypical antipsychotic, or even considering ECT. She ruminates about these or even about signing papers for voluntary admission. She may have dementia but pseudodementia cannot be ruled out. She does not want OCD treatment at this time. BSU: Problem List - Patient Problems (1) Major depression with psychotic features Current Visit: No Status: Acute Priority: High Code(s): F32.3 - MAJOR DEPRESSV DISORD, SINGLE EPSD, SEVERE W PSYCH FEATURES SNOMED Code(s): 804097349 Comment: management per psych (2) OCD (obsessive compulsive disorder) Current Visit: No Status: Chronic Priority: Medium Code(s): F42.9 - OBSESSIVE-COMPULSIVE DISORDER, UNSPECIFIED SNOMED Code(s): 697902356 Comment: she does not want specific psychotherapy or medication for this at this time Plan - Plan Treatment Plan: Name: SHANNAN SCHMIDT Birthdate: 1955 [id number] Continued Medication Management: Different Medication Medications: Current Medications Al Hydrox/Mg Hydrox/Simethicone (Maalox Plus*) 30 ml PO Q4H PRN PRN Reason: INDIGESTION Calcium/Vitamin D (Oscal D Tab 250/125*) 1 tab PO DAILY [facility] Last Admin: 05/10/19 09:40 Dose: Not Given Clonazepam (Klonopin Tab(*)) 1 mg PO BEDTIME [facility] Last Admin: 05/09/19 20:44 Dose: 1 mg Docusate Sodium (Colace Cap*) 100 mg PO BID [facility] Last Admin: 05/10/19 07:49 Dose: 100 mg Mirtazapine (Remeron Tab*) 30 mg PO BEDTIME [facility] Last Admin: 05/09/19 20:45 Dose: 30 mg Pto: Women's (Multivitamin Gummies) 1 dose PO DAILY [facility] Last Admin: 05/10/19 10:54 Dose: 1 dose Olanzapine (Zyprexa Tab*) 5 mg PO BEDTIME [facility] Last Admin: 05/09/19 20:46 Dose: 5 mg Pantoprazole Sodium (Protonix Tab*) 40 mg PO DAILY [facility] Last Admin: 05/10/19 09:40 Dose: Not Given Polyethylene Glycol/Electrolytes (Miralax*) 17 gm PO BEDTIME [facility] Last Admin: 05/09/19 20:46 Dose: 17 gm Senna (Senokot Tab*) 2 tab PO BEDTIME PRN PRN Reason: CONSTIPATION Simethicone (Mylicon Tab*) 80 mg PO Q6H PRN PRN Reason: GAS - Discharge Plan Discharge Plan: Outpatient Follow Up Outpatient Program: [facility]
[2019-05-10] MEDS: Polyethylene Glycol 3350* 17 GM PACKET PO SCH (20:05)
[2019-05-10] MEDS: ARIPiprazole TAB* 5 MG PO SCH (20:06)
[2019-05-10] MEDS: Mirtazapine TAB* 15 MG PO SCH (20:07)
[2019-05-10] MEDS: clonazePAM TAB(*) 1 MG PO SCH (20:07)
[2019-05-10] MEDS: Senna TAB 8.6 mg* TAB PO PRN (20:12)
[2019-05-11] MEDS: Docusate CAP* 100 MG PO SCH ×2 (08:20→20:01)
[2019-05-11] MEDS: MULTIVITAMIN PO SCH (08:20)
[2019-05-11] MEDS: [UNRECOGNIZED DRUG - OTHER] PO SCH (08:20)
[2019-05-11] MEDS: Calcium/Vitamin D TAB 250/125* TAB PO SCH (13:33)
[2019-05-11] MEDS: Pantoprazole TAB * 40 MG TAB PO SCH (13:34)
--- NOTE | 2019-05-11 15:42 | PN ---
Subjective - Subjective Service Type: 95697 Hosp care 25 min moderate complexity Subjective: Reports not feeling better but does have more expression in face. Still says that she has not had a bowel movement since being here. Did sleep last night and denies panic attacks. Objective - General Observations Appearance: Neat Appears Stated Age: No - appers older than stated age Stature: Thin Posture: WNL Eye Contact: Intense Behavior/Activity: Slowed - Interaction Observations Attitude Towards Examiner: Anxious, Defensive Stated Mood: Dysphoric, Anxious Affect: Restricted Speech Pattern/Tone: Quiet Volume Thought Process: Coherent Perception: WNL Thought Content: Preoccupation/Ruminations Hallucination Type: None Delusion Type: None - Cognitive Function Orientation: A&O x 4 Level of Consciousness: Awake, Alert, Appropriate Cognition: WNL Estimated Intelligence: Normal Insight: WNL Judgment Within Normal Limits: No Ability to Make Reasonable Decisions: Moderately Impaired - Medication Compliance Cooperative with Inpatient Medication Regimen: Yes - Group Participation Participates in Group Activities: Partial Assessment - Assessment Merits Inpatient Hospitalization: For Stabilization, Consolidate Improvements, For Discharge Planning Inpatient DSM-V Dx: F33.2 Clinical Impression: Has had a long-term depression as well as underlying obsessive compulsive disorder and obsessive-compulsive personality disorder. She has trouble making decisions, which is a problem in planning additional treatments such as increasing medication doses, augmenting with atypical antipsychotic, or even considering ECT. She ruminates about these or even about signing papers for voluntary admission. She may have dementia but pseudodementia cannot be ruled out. She does not want OCD treatment at this time. BSU: Problem List - Patient Problems (1) Major depression with psychotic features Current Visit: No Status: Acute Priority: High Code(s): F32.3 - MAJOR DEPRESSV DISORD, SINGLE EPSD, SEVERE W PSYCH FEATURES SNOMED Code(s): 326727066 Comment: management per psych (2) OCD (obsessive compulsive disorder) Current Visit: No Status: Chronic Priority: Medium Code(s): F42.9 - OBSESSIVE-COMPULSIVE DISORDER, UNSPECIFIED SNOMED Code(s): 709240621 Comment: she does not want specific psychotherapy or medication for this at this time Plan - Plan Treatment Plan: Name: SHANNAN SCHMIDT Birthdate: 1955 [id number] Continued Medication Management: Different Medication Medications: Current Medications Al Hydrox/Mg Hydrox/Simethicone (Maalox Plus*) 30 ml PO Q4H PRN PRN Reason: INDIGESTION Aripiprazole (Abilify Tab*) 5 mg PO BEDTIME [facility] Last Admin: 05/10/19 20:06 Dose: 5 mg Calcium/Vitamin D (Oscal D Tab 250/125*) 1 tab PO DAILY [facility] Last Admin: 05/11/19 13:33 Dose: Not Given Clonazepam (Klonopin Tab(*)) 1 mg PO BEDTIME [facility] Last Admin: 05/10/19 20:07 Dose: 1 mg Docusate Sodium (Colace Cap*) 100 mg PO BID [facility] Last Admin: 05/11/19 08:20 Dose: 100 mg Mirtazapine (Remeron Tab*) 30 mg PO BEDTIME [facility] Last Admin: 05/10/19 20:07 Dose: 30 mg Pto: Women's (Multivitamin Gummies) 1 dose PO DAILY [facility] Last Admin: 05/11/19 08:20 Dose: 1 dose Pantoprazole Sodium (Protonix Tab*) 40 mg PO DAILY [facility] Last Admin: 05/11/19 13:34 Dose: Not Given Polyethylene Glycol/Electrolytes (Miralax*) 17 gm PO BEDTIME [facility] Last Admin: 05/10/19 20:05 Dose: 17 gm Senna (Senokot Tab*) 2 tab PO BEDTIME PRN PRN Reason: CONSTIPATION Last Admin: 05/10/19 20:12 Dose: 2 tab Simethicone (Mylicon Tab*) 80 mg PO Q6H PRN PRN Reason: GAS - Discharge Plan Discharge Plan: Outpatient Follow Up Outpatient Program: [facility]
[2019-05-11] MEDS ORDERED: Bisacodyl SUPP* 10 MG SUPP PR ONE (16:00)
[2019-05-11] MEDS: Mirtazapine TAB* 15 MG PO SCH (20:01)
[2019-05-11] MEDS: ARIPiprazole TAB* 5 MG PO SCH (20:01)
[2019-05-11] MEDS: clonazePAM TAB(*) 1 MG PO SCH (20:01)
[2019-05-11] MEDS: Polyethylene Glycol 3350* 17 GM PACKET PO SCH (20:04)
[2019-05-11] MEDS: Senna TAB 8.6 mg* TAB PO PRN (20:06)
[2019-05-12] MEDS: Docusate CAP* 100 MG PO SCH ×2 (08:17→20:10)
[2019-05-12] MEDS: MULTIVITAMIN PO SCH (08:18)
[2019-05-12] MEDS: [UNRECOGNIZED DRUG - OTHER] PO SCH (08:18)
[2019-05-12] MEDS: Calcium/Vitamin D TAB 250/125* TAB PO SCH (11:00)
[2019-05-12] MEDS: Pantoprazole TAB * 40 MG TAB PO SCH (11:00)
--- NOTE | 2019-05-12 11:57 | PN ---
Subjective - Subjective Service Type: 56275 Hosp care 25 min moderate complexity Subjective: Patient reports ongoing difficult times. Continues to feel depressed. Face is more expressive and she does walk faster since medication switch from Zyprexa to Abilify. She continues to have somatic preoccupations about bowels but had suppository with reported good results yesterday, so I will continue current bowel regime and await medication response from Abilify augmentation. She continues to ruminate and be irritable and cannot function independently in the community at this time. Objective - General Observations Appearance: Neat Appears Stated Age: No - appears older than stated age Stature: Thin Posture: Rigid Eye Contact: Intense Behavior/Activity: Slowed - Interaction Observations Attitude Towards Examiner: Anxious, Dismissive Stated Mood: Dysphoric, Anxious Affect: Flat, Restricted Speech Pattern/Tone: Clear, Quiet Volume Thought Process: Coherent Perception: WNL Thought Content: Preoccupation/Ruminations Hallucination Type: None Delusion Type: None - Cognitive Function Orientation: A&O x 4 Level of Consciousness: Awake, Alert, Appropriate Cognition: WNL Estimated Intelligence: Normal Insight: Mostly Blames Others for Problems, Difficulty Acknowledging Presence of Psyciatric Problems Judgment Within Normal Limits: No Ability to Make Reasonable Decisions: Moderately Impaired - Medication Compliance Cooperative with Inpatient Medication Regimen: Yes - Group Participation Participates in Group Activities: Partial - Elaboration on Positive Findings Positive MSE Findings: Has ongoing poor insight. Ruminates about what people think of her and about somatic and bowel issues. Assessment - Assessment Merits Inpatient Hospitalization: For Stabilization, Consolidate Improvements, For Discharge Planning Inpatient DSM-V Dx: F33.2 Clinical Impression: Has had a long-term depression as well as underlying obsessive compulsive disorder and obsessive-compulsive personality disorder. She has trouble making decisions, which is a problem in planning additional treatments such as increasing medication doses, augmenting with atypical antipsychotic, or even considering ECT. She ruminates about these or even about signing papers for voluntary admission. She may have dementia but pseudodementia cannot be ruled out. She does not want OCD treatment at this time. BSU: Problem List - Patient Problems (1) Major depression with psychotic features Current Visit: No Status: Acute Priority: High Code(s): F32.3 - MAJOR DEPRESSV DISORD, SINGLE EPSD, SEVERE W PSYCH FEATURES SNOMED Code(s): 769639500 Comment: management per psych (2) OCD (obsessive compulsive disorder) Current Visit: No Status: Chronic Priority: Medium Code(s): F42.9 - OBSESSIVE-COMPULSIVE DISORDER, UNSPECIFIED SNOMED Code(s): 621333642 Comment: she does not want specific psychotherapy or medication for this at this time Plan - Plan Treatment Plan: Name: SHANNAN SCHMIDT Birthdate: 1955 [id number] Continued Medication Management: Different Medication Medications: Current Medications Al Hydrox/Mg Hydrox/Simethicone (Maalox Plus*) 30 ml PO Q4H PRN PRN Reason: INDIGESTION Aripiprazole (Abilify Tab*) 5 mg PO BEDTIME [facility] Last Admin: 05/11/19 20:01 Dose: 5 mg Calcium/Vitamin D (Oscal D Tab 250/125*) 1 tab PO DAILY [facility] Last Admin: 05/12/19 11:00 Dose: Not Given Clonazepam (Klonopin Tab(*)) 1 mg PO BEDTIME [facility] Last Admin: 05/11/19 20:01 Dose: 1 mg Docusate Sodium (Colace Cap*) 100 mg PO BID [facility] Last Admin: 05/12/19 08:17 Dose: 100 mg Mirtazapine (Remeron Tab*) 30 mg PO BEDTIME [facility] Last Admin: 05/11/19 20:01 Dose: 30 mg Pto: Women's (Multivitamin Gummies) 1 dose PO DAILY [facility] Last Admin: 05/12/19 08:18 Dose: 1 dose Pantoprazole Sodium (Protonix Tab*) 40 mg PO DAILY [facility] Last Admin: 05/12/19 11:00 Dose: Not Given Polyethylene Glycol/Electrolytes (Miralax*) 17 gm PO BEDTIME [facility] Last Admin: 05/11/19 20:04 Dose: 17 gm Senna (Senokot Tab*) 2 tab PO BEDTIME PRN PRN Reason: CONSTIPATION Last Admin: 05/11/19 20:06 Dose: 2 tab Simethicone (Mylicon Tab*) 80 mg PO Q6H PRN PRN Reason: GAS - Discharge Plan Discharge Plan: Outpatient Follow Up Outpatient Program: [facility]
[2019-05-12] MEDS: Polyethylene Glycol 3350* 17 GM PACKET PO SCH (20:09)
[2019-05-12] MEDS: clonazePAM TAB(*) 1 MG PO SCH (20:10)
[2019-05-12] MEDS: Mirtazapine TAB* 15 MG PO SCH (20:10)
[2019-05-12] MEDS: ARIPiprazole TAB* 5 MG PO SCH (20:10)
[2019-05-12] MEDS: Senna TAB 8.6 mg* TAB PO PRN (20:13)
[2019-05-13] MEDS: [UNRECOGNIZED DRUG - OTHER] PO SCH (08:32)
[2019-05-13] MEDS: Docusate CAP* 100 MG PO SCH ×2 (08:32→20:54)
[2019-05-13] MEDS: Calcium/Vitamin D TAB 250/125* TAB PO SCH (08:32)
[2019-05-13] MEDS: Pantoprazole TAB * 40 MG TAB PO SCH (08:32)
[2019-05-13] MEDS: MULTIVITAMIN PO SCH (08:32)
--- NOTE | 2019-05-13 13:13 | PN ---
Subjective - Subjective Service Type: 03235 Hosp care 25 min moderate complexity Subjective: Reports that she is "struggling" and feels the same. Feels unable to think to fill out papers used in group therapy. Does reports sleeping well last night and denies pain. When asked about staff passes she said that staff would not let her go out on them yet, complained, so I told her I would write them. I reviewed other treatment options including clomiprimine, other medications, and ECT with her. She does not want to change medication regimen at this time. Objective - General Observations Appearance: Neat Appears Stated Age: No - older than stated age Stature: Thin Posture: Tense Eye Contact: Intense Behavior/Activity: Slowed - Interaction Observations Attitude Towards Examiner: Defensive, Dismissive Stated Mood: Dysphoric, Anxious Affect: Restricted Speech Pattern/Tone: Clear, Quiet Volume Thought Process: Coherent Perception: WNL Thought Content: WNL Hallucination Type: None Delusion Type: None - Cognitive Function Orientation: A&O x 4 Level of Consciousness: Awake, Alert, Appropriate Cognition: Impaired Attention/Concentration Estimated Intelligence: Normal Insight: Difficulty Acknowledging Presence of Psyciatric Problems Judgment Within Normal Limits: No Ability to Make Reasonable Decisions: Moderately Impaired - Medication Compliance Cooperative with Inpatient Medication Regimen: Yes - Group Participation Participates in Group Activities: Partial - Elaboration on Positive Findings Positive MSE Findings: Has trouble thinking and concentrating. Constricted affect. Assessment - Assessment Merits Inpatient Hospitalization: For Stabilization, Consolidate Improvements, For Discharge Planning Inpatient DSM-V Dx: F33.2 Clinical Impression: Has had a long-term depression as well as underlying obsessive compulsive disorder and obsessive-compulsive personality disorder. She has trouble making decisions, which is a problem in planning additional treatments such as increasing medication doses, augmenting with atypical antipsychotic, or even considering ECT. She ruminates about these or even about signing papers for voluntary admission. She may have dementia but pseudodementia cannot be ruled out. She does not want OCD treatment at this time and does not want medication changes yet. Her abilify is new and masked facies are better since the switch from Zyprexa. BSU: Problem List - Patient Problems (1) Major depression with psychotic features Current Visit: No Status: Acute Priority: High Code(s): F32.3 - MAJOR DEPRESSV DISORD, SINGLE EPSD, SEVERE W PSYCH FEATURES SNOMED Code(s): [id number] Comment: management per psych (2) OCD (obsessive compulsive disorder) Current Visit: No Status: Chronic Priority: Medium Code(s): F42.9 - OBSESSIVE-COMPULSIVE DISORDER, UNSPECIFIED SNOMED Code(s): 351510368 Comment: she does not want specific psychotherapy or medication for this at this time Plan - Plan Treatment Plan: Name: SHANNAN SCHMIDT Birthdate: 1955 [id number] Continued Medication Management: Different Medication Medications: Current Medications Al Hydrox/Mg Hydrox/Simethicone (Maalox Plus*) 30 ml PO Q4H PRN PRN Reason: INDIGESTION Aripiprazole (Abilify Tab*) 5 mg PO BEDTIME [facility] Last Admin: 05/12/19 20:10 Dose: 5 mg Calcium/Vitamin D (Oscal D Tab 250/125*) 1 tab PO DAILY [facility] Last Admin: 05/13/19 08:32 Dose: Not Given Clonazepam (Klonopin Tab(*)) 1 mg PO BEDTIME [facility] Last Admin: 05/12/19 20:10 Dose: 1 mg Docusate Sodium (Colace Cap*) 100 mg PO BID [facility] Last Admin: 05/13/19 08:32 Dose: 100 mg Mirtazapine (Remeron Tab*) 30 mg PO BEDTIME [facility] Last Admin: 05/12/19 20:10 Dose: 30 mg Pto: Women's (Multivitamin Gummies) 1 dose PO DAILY [facility] Last Admin: 05/13/19 08:32 Dose: 1 dose Pantoprazole Sodium (Protonix Tab*) 40 mg PO DAILY [facility] Last Admin: 05/13/19 08:32 Dose: Not Given Polyethylene Glycol/Electrolytes (Miralax*) 17 gm PO BEDTIME [facility] Last Admin: 05/12/19 20:09 Dose: 17 gm Senna (Senokot Tab*) 2 tab PO BEDTIME PRN PRN Reason: CONSTIPATION Last Admin: 05/12/19 20:13 Dose: 2 tab Simethicone (Mylicon Tab*) 80 mg PO Q6H PRN PRN Reason: GAS - Discharge Plan Discharge Plan: Outpatient Follow Up Outpatient Program: [facility]
[2019-05-13] MEDS: Polyethylene Glycol 3350* 17 GM PACKET PO SCH (20:52)
[2019-05-13] MEDS: ARIPiprazole TAB* 5 MG PO SCH (20:53)
[2019-05-13] MEDS: clonazePAM TAB(*) 1 MG PO SCH (20:53)
[2019-05-13] MEDS: Mirtazapine TAB* 15 MG PO SCH (20:54)
[2019-05-14] MEDS: MULTIVITAMIN PO SCH (08:59)
[2019-05-14] MEDS: [UNRECOGNIZED DRUG - OTHER] PO SCH (08:59)
[2019-05-14] MEDS: Docusate CAP* 100 MG PO SCH ×2 (08:59→20:35)
[2019-05-14] MEDS: Pantoprazole TAB * 40 MG TAB PO SCH (09:01)
[2019-05-14] MEDS: Calcium/Vitamin D TAB 250/125* TAB PO SCH (09:01)
[2019-05-14] MEDS: ARIPiprazole TAB* 5 MG PO SCH (20:34)
[2019-05-14] MEDS: Polyethylene Glycol 3350* 17 GM PACKET PO SCH (20:34)
[2019-05-14] MEDS: clonazePAM TAB(*) 1 MG PO SCH (20:34)
[2019-05-14] MEDS: Mirtazapine TAB* 15 MG PO SCH (20:35)
[2019-05-15] MEDS: Calcium/Vitamin D TAB 250/125* TAB PO SCH (08:37)
[2019-05-15] MEDS: Pantoprazole TAB * 40 MG TAB PO SCH (08:37)
[2019-05-15] MEDS: Docusate CAP* 100 MG PO SCH ×2 (08:38→20:30)
[2019-05-15] MEDS: MULTIVITAMIN PO SCH (08:38)
[2019-05-15] MEDS: [UNRECOGNIZED DRUG - OTHER] PO SCH (08:38)
[2019-05-15] MEDS: Mirtazapine TAB* 15 MG PO SCH (20:30)
[2019-05-15] MEDS: ARIPiprazole TAB* 5 MG PO SCH (20:30)
[2019-05-15] MEDS: clonazePAM TAB(*) 1 MG PO SCH (20:30)
[2019-05-15] MEDS: Polyethylene Glycol 3350* 17 GM PACKET PO SCH (20:48)
[2019-05-16] MEDS: MULTIVITAMIN PO SCH (08:33)
[2019-05-16] MEDS: [UNRECOGNIZED DRUG - OTHER] PO SCH (08:33)
[2019-05-16] MEDS: Docusate CAP* 100 MG PO SCH ×2 (08:33→20:18)
[2019-05-16] MEDS: Calcium/Vitamin D TAB 250/125* TAB PO SCH (08:34)
[2019-05-16] MEDS: Pantoprazole TAB * 40 MG TAB PO SCH (08:34)
[2019-05-16] MEDS ORDERED: Glycerin ADULT SUPP PR ONE (15:27)
--- NOTE | 2019-05-16 15:35 | PN ---
Subjective - Subjective Date of Service: 05/16/19 Service Type: 21151 Hosp care 25 min moderate complexity Subjective: Thalia reports her mood is "not good" and refers to her leggings being constricting due to weight gain and constipation. Patient presents with anxious and restricted affect. She reports feeling "nervous all the time" and asks me "where are you going to put me next." Patient gives vague answers to questions and stares silently when I ask direct, close-ended questions. She reports confusion about why she is in hospital but is receptive to information about depressive symptoms and lack of independent functioning. Objective - General Observations Appearance: Neat Stature: Thin Posture: Tense Eye Contact: Intense Behavior/Activity: WNL - Interaction Observations Attitude Towards Examiner: Anxious Stated Mood: Dysphoric Affect: Flat Speech Pattern/Tone: Quiet Volume Thought Process: Impoverished Perception: WNL Thought Content: Preoccupation/Ruminations, Depressive, Self-Deprecatory Thought Process: Lethality: Paranoid Ideation Hallucination Type: None Delusion Type: Persecution, Somatic - Cognitive Function Orientation: A&O x 4 Level of Consciousness: Alert Cognition: Impaired Attention/Concentration Estimated Intelligence: Normal Insight: Difficulty Acknowledging Presence of Psyciatric Problems Judgment Within Normal Limits: No Ability to Make Reasonable Decisions: Serverely Impaired - Medication Compliance Cooperative with Inpatient Medication Regimen: Yes - Group Participation Participates in Group Activities: Yes Assessment - Assessment Merits Inpatient Hospitalization: For Immediate Safety, For Stabilization, Pending Safe DC Plan Inpatient DSM-V Dx: F33.2 Clinical Impression: Has had a long-term depression as well as underlying obsessive compulsive disorder and obsessive-compulsive personality disorder. She has trouble making decisions, which is a problem in planning additional treatments such as increasing medication doses, augmenting with atypical antipsychotic, or even considering ECT. She ruminates about these or even about signing papers for voluntary admission. She may have dementia but pseudodementia cannot be ruled out. She has accepted change from olanzapine to aripiprazole. She does not want OCD treatment at this time and does not want medication changes yet. Plan - Plan Treatment Plan: Name: THALIA SCHMIDT Birthdate: 1955 [id number] continue acute intensive psychiatric treatment. continue 30min observation and allow staff pass per RN discretion. add glycerin supp x1, continue other medications. schedule family meeting to discuss discharge planning. Continued Medication Management: Start Medication Medications: Current Medications Al Hydrox/Mg Hydrox/Simethicone (Maalox Plus*) 30 ml PO Q4H PRN PRN Reason: INDIGESTION Aripiprazole (Abilify Tab*) 5 mg PO BEDTIME [facility] Last Admin: 05/15/19 20:30 Dose: 5 mg Calcium/Vitamin D (Oscal D Tab 250/125*) 1 tab PO DAILY [facility] Last Admin: 05/16/19 08:34 Dose: Not Given Clonazepam (Klonopin Tab(*)) 1 mg PO BEDTIME [facility] Last Admin: 05/15/19 20:30 Dose: 1 mg Docusate Sodium (Colace Cap*) 100 mg PO BID [facility] Last Admin: 05/16/19 08:33 Dose: 100 mg Glycerin (Glycerin Adult Supp*) 1 supp [place] ONCE ONE Stop: 05/16/19 15:28 Mirtazapine (Remeron Tab*) 30 mg PO BEDTIME [facility] Last Admin: 05/15/19 20:30 Dose: 30 mg Pto: Women's (Multivitamin Gummies) 1 dose PO DAILY [facility] Last Admin: 05/16/19 08:33 Dose: 1 dose Pantoprazole Sodium (Protonix Tab*) 40 mg PO DAILY [facility] Last Admin: 05/16/19 08:34 Dose: Not Given Polyethylene Glycol/Electrolytes (Miralax*) 17 gm PO BEDTIME [facility] Last Admin: 05/15/19 20:48 Dose: Not Given Senna (Senokot Tab*) 2 tab PO BEDTIME PRN PRN Reason: CONSTIPATION Last Admin: 05/12/19 20:13 Dose: 2 tab Simethicone (Mylicon Tab*) 80 mg PO Q6H PRN PRN Reason: GAS - Discharge Plan Discharge Plan: Inpatient Hospitalization
[2019-05-16] MEDS: Polyethylene Glycol 3350* 17 GM PACKET PO SCH (20:16)
[2019-05-16] MEDS: Mirtazapine TAB* 15 MG PO SCH (20:18)
[2019-05-16] MEDS: ARIPiprazole TAB* 5 MG PO SCH (20:18)
[2019-05-16] MEDS: clonazePAM TAB(*) 1 MG PO SCH (20:18)
[2019-05-17] MEDS: MULTIVITAMIN PO SCH (08:20)
[2019-05-17] MEDS: [UNRECOGNIZED DRUG - OTHER] PO SCH (08:20)
[2019-05-17] MEDS: Pantoprazole TAB * 40 MG TAB PO SCH (08:22)
[2019-05-17] MEDS: Calcium/Vitamin D TAB 250/125* TAB PO SCH ×2 (08:22→08:24)
[2019-05-17] MEDS: Docusate CAP* 100 MG PO SCH ×2 (08:22→20:03)
[2019-05-17] MEDS: Polyethylene Glycol 3350* 17 GM PACKET PO SCH (20:00)
[2019-05-17] MEDS: ARIPiprazole TAB* 5 MG PO SCH (20:01)
[2019-05-17] MEDS: Mirtazapine TAB* 15 MG PO SCH (20:03)
[2019-05-17] MEDS: clonazePAM TAB(*) 1 MG PO SCH (20:03)
[2019-05-18] MEDS: [UNRECOGNIZED DRUG - OTHER] PO SCH (08:20)
[2019-05-18] MEDS: Calcium/Vitamin D TAB 250/125* TAB PO SCH (08:20)
[2019-05-18] MEDS: Docusate CAP* 100 MG PO SCH ×2 (08:20→21:03)
[2019-05-18] MEDS: MULTIVITAMIN PO SCH (08:20)
[2019-05-18] MEDS: Pantoprazole TAB * 40 MG TAB PO SCH (08:21)
--- NOTE | 2019-05-18 10:20 | PN ---
Subjective - Subjective Service Type: 53723 Hosp care 35 min high complexity Subjective: MoCA assessment completed and patient participated with vigor. She scored 21/30 , missing points for drawing a cube, serial 7s, delayed recall and inability to orient to building or town. She reports attempting to read books or worksheets and is frustrated that she cannot remember the previous page read and "can't figure what to do with it." She denies feelings of depressed mood or anxiety. She endorses being confused when completing ADLs at home. Objective - General Observations Appearance: Neat Stature: Thin Posture: WNL Eye Contact: Average Behavior/Activity: Slowed - Interaction Observations Attitude Towards Examiner: Cooperative, Anxious Stated Mood: Euthymic Affect: Restricted Speech Pattern/Tone: Clear, Appropriate, Quiet Volume Thought Process: Impoverished Perception: WNL Thought Content: Self-Deprecatory Hallucination Type: Denies Delusion Type: Denies - Cognitive Function Orientation: A&O x 4 Level of Consciousness: Alert Cognition: Impaired Cognition, Impaired Memory, Impaired Attention/Concentration Estimated Intelligence: Normal Insight: Difficulty Acknowledging Presence of Psyciatric Problems Judgment Within Normal Limits: No Ability to Make Reasonable Decisions: Serverely Impaired - Medication Compliance Cooperative with Inpatient Medication Regimen: Yes - Group Participation Participates in Group Activities: Yes Assessment - Assessment Merits Inpatient Hospitalization: For Immediate Safety, For Stabilization, For Ongoing Evaluation Inpatient DSM-V Dx: F33.2 Clinical Impression: Has had a long-term depression as well as underlying obsessive compulsive disorder and obsessive-compulsive personality disorder. She has trouble making decisions, which is a problem in planning additional treatments such as increasing medication doses, augmenting with atypical antipsychotic, or even considering ECT. She ruminates about these or even about signing papers for voluntary admission. She may have dementia but pseudodementia cannot be ruled out. She has accepted change from olanzapine to aripiprazole. She does not want OCD treatment at this time and does not want medication changes yet. Plan - Plan Treatment Plan: Name: SHANNAN SCHMIDT Birthdate: 1955 [id number] continue acute intensive psychiatric treatment. continue 30min observation and allow staff pass per RN discretion. increase aripiprazole to 7mg daily. obtain Vit D and Vit B12 levels. obtain MRI brain, neuropsych cognitive testing and PT/OT consults. Family meeting scheduled for 05/19/19. Continued Medication Management: Start Medication Medications: Current Medications Al Hydrox/Mg Hydrox/Simethicone (Maalox Plus*) 30 ml PO Q4H PRN PRN Reason: INDIGESTION Aripiprazole (Abilify Tab*) 7 mg PO BEDTIME [facility] Calcium/Vitamin D (Oscal D Tab 250/125*) 1 tab PO DAILY [facility] Last Admin: 05/18/19 08:20 Dose: 1 tab Clonazepam (Klonopin Tab(*)) 1 mg PO BEDTIME [facility] Last Admin: 05/17/19 20:03 Dose: 1 mg Docusate Sodium (Colace Cap*) 100 mg PO BID [facility] Last Admin: 05/18/19 08:20 Dose: 100 mg Mirtazapine (Remeron Tab*) 30 mg PO BEDTIME [facility] Last Admin: 05/17/19 20:03 Dose: 30 mg Pto: Women's (Multivitamin Gummies) 1 dose PO DAILY [facility] Last Admin: 05/18/19 08:20 Dose: 1 dose Pantoprazole Sodium (Protonix Tab*) 40 mg PO DAILY [facility] Last Admin: 05/18/19 08:21 Dose: Not Given Polyethylene Glycol/Electrolytes (Miralax*) 17 gm PO BEDTIME [facility] Last Admin: 05/17/19 20:00 Dose: 17 gm Senna (Senokot Tab*) 2 tab PO BEDTIME PRN PRN Reason: CONSTIPATION Last Admin: 05/12/19 20:13 Dose: 2 tab Simethicone (Mylicon Tab*) 80 mg PO Q6H PRN PRN Reason: GAS - Discharge Plan Discharge Plan: Inpatient Hospitalization
[2019-05-18] MEDS ORDERED: Diazepam TAB(*) 5 MG PO ONE (14:22)
--- NOTE | 2019-05-18 15:48 | PN ---
BSU: Group Therapy Note - Service Type Service Type: [id number] Group Psychotherapy - Medication Education Group: Patient attended group and presented with flat affect that did not vary with discussion. Although responsive to direct prompts to respond to questions, patient did not engage in spontaneous conversation.
[2019-05-18 16:55] LABS: Vitamin D Total 25(OH) 30.2 ng/mL (20-50)
[2019-05-18] MEDS: clonazePAM TAB(*) 1 MG PO SCH (21:02)
[2019-05-18] MEDS: ARIPiprazole TAB* 5 MG PO SCH (21:02)
[2019-05-18] MEDS: ARIPiprazole TAB* 2 MG PO SCH (21:02)
[2019-05-18] MEDS: Mirtazapine TAB* 15 MG PO SCH (21:03)
[2019-05-18] MEDS: Polyethylene Glycol 3350* 17 GM PACKET PO SCH (21:05)
[2019-05-18] MEDS: Ciprofloxacin TAB* 500 MG PO SCH (21:17)
[2019-05-19] MEDS: Docusate CAP* 100 MG PO SCH ×2 (08:35→21:17)
[2019-05-19] MEDS: [UNRECOGNIZED DRUG - OTHER] PO SCH (08:35)
[2019-05-19] MEDS: MULTIVITAMIN PO SCH (08:35)
[2019-05-19] MEDS: Calcium/Vitamin D TAB 250/125* TAB PO SCH (08:35)
[2019-05-19] MEDS: Pantoprazole TAB * 40 MG TAB PO SCH (08:35)
[2019-05-19] MEDS: Ciprofloxacin TAB* 500 MG PO SCH ×2 (10:14→21:16)
--- NOTE | 2019-05-19 13:12 | PN ---
Subjective - Subjective Date of Service: 05/19/19 Service Type: 39585 Hosp care 35 min high complexity Subjective: Family meeting with patient's daughter, Luma Fox AUTOMATIC PAINT SPRAYER OPERATOR, caption writer and Thalia joining us at the latter half. We discussed results of psychological testing and patient's presentation. Dominique informed of referrals made in regards to long-term housing options, ACT team, and recommendation for Thalia to return home in the meantime. We discussed potential for in-home resources to assist family, as well. Thalia informed of above when joining in meeting. She often responded with either intense stare and selective mutism or blaming others for "doing this to me." Team members encouraged Thalia to assert her independence upon return to home and attempted to discuss empowerment. Objective - General Observations Appearance: Neat Stature: Thin Posture: WNL Eye Contact: Intense Behavior/Activity: Slowed - Interaction Observations Attitude Towards Examiner: Anxious, Defensive Stated Mood: Anxious Affect: Restricted Speech Pattern/Tone: Delayed, Quiet Volume Thought Process: Impoverished Perception: WNL Thought Content: Depressive Hallucination Type: None Delusion Type: Persecution, Somatic - Cognitive Function Orientation: A&O x 4 Level of Consciousness: Alert Cognition: Impaired Attention/Concentration Estimated Intelligence: Borderline Range Insight: Mostly Blames Others for Problems Judgment Within Normal Limits: No Ability to Make Reasonable Decisions: Moderately Impaired - Medication Compliance Cooperative with Inpatient Medication Regimen: Yes - Group Participation Participates in Group Activities: Yes Assessment - Assessment Merits Inpatient Hospitalization: For Immediate Safety, For Stabilization Inpatient DSM-V Dx: F33.2 Clinical Impression: 64yo white female, x3 with history of MDD with psychotic features, OCD , borderline intellectual functioning and cluster B personality traits who presented to ED with psychotic behaviors and inability to care for herself in the home. She merits hospitalization for immediate safety and stabilization. Plan - Plan Treatment Plan: Name: THALIA SCHMIDT Birthdate: 1955 [id number] continue acute intensive psychiatric treatment. continue 30min observation and allow staff pass per RN discretion. convert to voluntary status. add ciprofloxacin for UTI, continue other medications as ordered. DC MRI due to patient refusal. Continued Medication Management: Start Medication Medications: Current Medications Al Hydrox/Mg Hydrox/Simethicone (Maalox Plus*) 30 ml PO Q4H PRN PRN Reason: INDIGESTION Aripiprazole (Abilify Tab*) 5 mg PO BEDTIME [facility] Last Admin: 05/18/19 21:02 Dose: 5 mg Aripiprazole (Abilify Tab*) 2 mg PO BEDTIME [facility] Last Admin: 05/18/19 21:02 Dose: 2 mg Calcium/Vitamin D (Oscal D Tab 250/125*) 1 tab PO DAILY [facility] Last Admin: 05/19/19 08:35 Dose: 1 tab Ciprofloxacin (Cipro Tab*) 500 mg PO Q12HR [facility]; Protocol Stop: 05/23/19 20:59 Last Admin: 05/19/19 10:14 Dose: 500 mg Clonazepam (Klonopin Tab(*)) 1 mg PO BEDTIME [facility] Last Admin: 05/18/19 21:02 Dose: 1 mg Docusate Sodium (Colace Cap*) 100 mg PO BID [facility] Last Admin: 05/19/19 08:35 Dose: 100 mg Mirtazapine (Remeron Tab*) 30 mg PO BEDTIME [facility] Last Admin: 05/18/19 21:03 Dose: 30 mg Pto: Women's (Multivitamin Gummies) 1 dose PO DAILY [facility] Last Admin: 05/19/19 08:35 Dose: 1 dose Pantoprazole Sodium (Protonix Tab*) 40 mg PO DAILY [facility] Last Admin: 05/19/19 08:35 Dose: Not Given Polyethylene Glycol/Electrolytes (Miralax*) 17 gm PO BEDTIME [facility] Last Admin: 05/18/19 21:05 Dose: 17 gm Senna (Senokot Tab*) 2 tab PO BEDTIME PRN PRN Reason: CONSTIPATION Last Admin: 05/12/19 20:13 Dose: 2 tab Simethicone (Mylicon Tab*) 80 mg PO Q6H PRN PRN Reason: GAS - Discharge Plan Discharge Plan: Inpatient Hospitalization
--- NOTE | 2019-05-19 15:08 | CONS ---
PSYCHOLOGICAL REPORT: DATE OF CONSULT: 05/18/19 PROCEDURE CODE: [id number]. REASON FOR REFERRAL: Thalia was referred by her nurse practitioner, Leann Ny, with concerns regarding possible cognitive decline characterized by confusion and difficulty with recall. She struggled to perform well on a recently administered MoCA. TEST ADMINISTERED: Thalia completed portions of the Donte Adult Intelligence Scale - Fourth Edition (WAIS-IV). The working memory scale was not administered secondary to hearing difficulties. RELEVANT HISTORY: Thalia is a 64-year-old female who has been living with her daughter, was struggling with difficulties with worsening depressive symptoms characterized by increased confusion, difficulty in recalling recent events and becoming increasingly self-isolative. Her daughter also describes paranoid mentation being present with Thalia being uncharacteristically disorganized and at times simply following her around the house without any real sense of purpose or direction. Thalia has had 3 previous inpatient psychiatric admissions, with her last admission here ending in a transfer to the [facility] for continuing treatment. Her admission there was 02/11/19 to 02/28/19 with prescribers there changing her medications. Thalia's daughter describes the change in medications has been problematic for her and been ineffective. Thalia typically presents in a very passive fashion and is often quite disengaged from conversation or activities. She is compliant with staff direction and will attend programming regularly. What concerns are that she has difficulty tracking conservations for different reasons, one being she is hearing impaired with the other being that she impresses as quite depressed at times and rather disinterested. Concerns are that she does not adequately track conversation as she is typically unresponsive in terms of facial features which would be consistent with euthymic affect. She remains quite flat and univariable and responds to direct prompts in a very perfunctory fashion if at all. In discussion, she needs a great deal of repeating in order to track conservation and comprehend questions. During test administration, Thalia had considerable difficulty understanding directions which needed repeated prompts to help her understand procedure. Even with this, she expressed confusion, but proceeded nonetheless at times accurately. Many of her responses simply consisted with the response "I can't remember." TEST RESULTS: Thalia attained a verbal comprehension index score of 66 on this administration of WAIS-IV which falls in the first percentile of intellectual functioning, meaning she did this well or better than 1% of similar aged persons. Her perceptual reasoning index was her relative strength where she was assessed at 79. This effort falls in the eighth percentile of intellectual functioning, while her processing speed was assessed at 74 which falls in the fourth percentile. As mentioned, the working memory index was not assessed secondary to hearing impairment, and as such, the full scale was not prorated either. IMPRESSIONS AND RECOMMENDATIONS: Concerns with Thalia move along as to whether cognitive impairment is secondary to continued difficulties with depression and anxiety or if there is more of an organic process occurring there might be consistent with declining attentional processes and poor recall. Currently, Thalia has refused to comply with recommended MRI assessment, stating "I have already done that." Apparently MRIs had been done while she was living in [place] and would not be contemporaneous. Concerns that Thalia's daughter has expressed this whether or not she can continue to live at home secondary to issues pertaining to safety. Clinical concerns move along whether or not she is able to engage in self-care adequately and cooperate with continuing efforts to treat. The impression this copywriter has is that Thalia has refused MRI recommendations because she is fearful of having cognitive impairment difficulties. Although she was cooperative and put forth what is perceived to be her best effort, she was a reluctant participant in this assessment as she was able to ascertain the nature of the questions posed. Thalia continues to attend programing regularly, but remains rather passive only participating with direct prompting, in that only very briefly. It is hoped that Thalia will be able to return to her daughter's home as per her wish with ongoing concerns about possible placement if her mentation deteriorates. Presently, she is able to engage in self-care while on the unit and has expressed hopes of being discharged, stating that she is frustrated with her continuing stay here. Ongoing treatment should continue to assess for cognitive impairments encroaching and encourage compliance with recommended medications that have been effective for her historically. Diagnostic impression supports major depressive disorder, recurrent, severe with psychotic features as well as obsessive compulsive disorder by history and ongoing concerns regarding encroaching cognitive impairment. [id number]/[facility] #: [id number] [facility] HOSPITALSharad
[2019-05-19] MEDS: ARIPiprazole TAB* 5 MG PO SCH (21:15)
[2019-05-19] MEDS: ARIPiprazole TAB* 2 MG PO SCH (21:15)
[2019-05-19] MEDS: clonazePAM TAB(*) 1 MG PO SCH (21:16)
[2019-05-19] MEDS: Mirtazapine TAB* 15 MG PO SCH (21:17)
[2019-05-19] MEDS: Polyethylene Glycol 3350* 17 GM PACKET PO SCH (21:21)
[2019-05-20] MEDS: Docusate CAP* 100 MG PO SCH ×2 (08:28→20:35)
[2019-05-20] MEDS: Calcium/Vitamin D TAB 250/125* TAB PO SCH (08:28)
[2019-05-20] MEDS: Ciprofloxacin TAB* 500 MG PO SCH ×2 (08:28→20:35)
[2019-05-20] MEDS: MULTIVITAMIN PO SCH (08:29)
[2019-05-20] MEDS: [UNRECOGNIZED DRUG - OTHER] PO SCH (08:29)
[2019-05-20] MEDS: Pantoprazole TAB * 40 MG TAB PO SCH (08:29)
--- NOTE | 2019-05-20 10:34 | PN ---
Subjective - Subjective Date of Service: 05/20/19 Service Type: 48170 Hosp care 15 min low complexity Subjective: Patient reports "anxiety" and attributes this to "what's gonna happen next." We discuss plan for her to return home to [facility] on Thursday with referrals sent to [facility] for ACT and mental health housing options. Patient is circumstantial about constipation and tight-fitting leggings. She is notified of weight change of -1 pound and states "the scale must be wrong." Objective - General Observations Appearance: Neat Stature: Thin Posture: Tense Eye Contact: Intense Behavior/Activity: Slowed - Interaction Observations Attitude Towards Examiner: Anxious Stated Mood: Dysphoric, Anxious Affect: Flat Speech Pattern/Tone: Clear, Quiet Volume Thought Process: Impoverished Perception: WNL Thought Content: Depressive, Self-Deprecatory Hallucination Type: None Delusion Type: Somatic - Cognitive Function Orientation: A&O x 4 Level of Consciousness: Alert Cognition: Impaired Memory, Impaired Attention/Concentration Estimated Intelligence: Borderline Range Insight: Difficulty Acknowledging Presence of Psyciatric Problems Judgment Within Normal Limits: No Ability to Make Reasonable Decisions: Moderately Impaired - Medication Compliance Cooperative with Inpatient Medication Regimen: Yes - Group Participation Participates in Group Activities: Yes Assessment - Assessment Merits Inpatient Hospitalization: For Immediate Safety, For Discharge Planning, Pending Safe DC Plan Inpatient DSM-V Dx: F33.2 Clinical Impression: 64yo white female, x3, with history of major depressive d/o with psychotic features, PTSD, OCD and cluster B personality traits who presented to ED with paranoid ideation and inablility to care for herself at home. She is accepting mild medication changes and passively participating in programming. Discharge planning to include resources for higher level of supervised housing options. Plan - Plan Treatment Plan: Name: SHANNAN SCHMIDT Birthdate: 1955 [id number] continue acute intensive psychiatric treatment. continue 30min observation and allow staff pass per RN discretion. convert to voluntary status. continue current medications. discharge tentative 05/23/19. Medications: Current Medications Al Hydrox/Mg Hydrox/Simethicone (Maalox Plus*) 30 ml PO Q4H PRN PRN Reason: INDIGESTION Aripiprazole (Abilify Tab*) 5 mg PO BEDTIME [facility] Last Admin: 05/19/19 21:15 Dose: 5 mg Aripiprazole (Abilify Tab*) 2 mg PO BEDTIME [facility] Last Admin: 05/19/19 21:15 Dose: 2 mg Calcium/Vitamin D (Oscal D Tab 250/125*) 1 tab PO DAILY [facility] Last Admin: 05/20/19 08:28 Dose: 1 tab Ciprofloxacin (Cipro Tab*) 500 mg PO Q12HR [facility]; Protocol Stop: 05/23/19 20:59 Last Admin: 05/20/19 08:28 Dose: 500 mg Clonazepam (Klonopin Tab(*)) 1 mg PO BEDTIME [facility] Last Admin: 05/19/19 21:16 Dose: 1 mg Docusate Sodium (Colace Cap*) 100 mg PO BID [facility] Last Admin: 05/20/19 08:28 Dose: 100 mg Mirtazapine (Remeron Tab*) 30 mg PO BEDTIME [facility] Last Admin: 05/19/19 21:17 Dose: 30 mg Pto: Women's (Multivitamin Gummies) 1 dose PO DAILY [facility] Last Admin: 05/20/19 08:29 Dose: 1 dose Pantoprazole Sodium (Protonix Tab*) 40 mg PO DAILY [facility] Last Admin: 05/20/19 08:29 Dose: Not Given Polyethylene Glycol/Electrolytes (Miralax*) 17 gm PO BEDTIME [facility] Last Admin: 05/19/19 21:21 Dose: 17 gm Senna (Senokot Tab*) 2 tab PO BEDTIME PRN PRN Reason: CONSTIPATION Last Admin: 05/12/19 20:13 Dose: 2 tab Simethicone (Mylicon Tab*) 80 mg PO Q6H PRN PRN Reason: GAS - Discharge Plan Discharge Plan: Inpatient Hospitalization Outpatient Program: [facility]
[2019-05-20] MEDS: Mirtazapine TAB* 15 MG PO SCH (20:34)
[2019-05-20] MEDS: clonazePAM TAB(*) 1 MG PO SCH (20:34)
[2019-05-20] MEDS: ARIPiprazole TAB* 2 MG PO SCH (20:35)
[2019-05-20] MEDS: Polyethylene Glycol 3350* 17 GM PACKET PO SCH (20:35)
[2019-05-20] MEDS: ARIPiprazole TAB* 5 MG PO SCH (20:35)
[2019-05-21] MEDS: Docusate CAP* 100 MG PO SCH ×2 (08:32→20:43)
[2019-05-21] MEDS: Ciprofloxacin TAB* 500 MG PO SCH ×2 (08:33→20:43)
[2019-05-21] MEDS: Calcium/Vitamin D TAB 250/125* TAB PO SCH (08:34)
[2019-05-21] MEDS: [UNRECOGNIZED DRUG - OTHER] PO SCH (08:37)
[2019-05-21] MEDS: MULTIVITAMIN PO SCH (08:37)
[2019-05-21] MEDS: Pantoprazole TAB * 40 MG TAB PO SCH (08:37)
[2019-05-21] MEDS: ARIPiprazole TAB* 5 MG PO SCH (20:42)
[2019-05-21] MEDS: ARIPiprazole TAB* 2 MG PO SCH (20:42)
[2019-05-21] MEDS: clonazePAM TAB(*) 1 MG PO SCH (20:43)
[2019-05-21] MEDS: Polyethylene Glycol 3350* 17 GM PACKET PO SCH (20:44)
[2019-05-21] MEDS: Mirtazapine TAB* 15 MG PO SCH (20:44)
[2019-05-22] MEDS: Ciprofloxacin TAB* 500 MG PO SCH ×2 (08:50→20:35)
[2019-05-22] MEDS: Pantoprazole TAB * 40 MG TAB PO SCH (08:50)
[2019-05-22] MEDS: Docusate CAP* 100 MG PO SCH ×2 (08:50→20:35)
[2019-05-22] MEDS: MULTIVITAMIN PO SCH (08:51)
[2019-05-22] MEDS: [UNRECOGNIZED DRUG - OTHER] PO SCH (08:51)
[2019-05-22] MEDS: Calcium/Vitamin D TAB 250/125* TAB PO SCH (08:51)
[2019-05-22] MEDS: ARIPiprazole TAB* 5 MG PO SCH (20:34)
[2019-05-22] MEDS: ARIPiprazole TAB* 2 MG PO SCH (20:34)
[2019-05-22] MEDS: clonazePAM TAB(*) 1 MG PO SCH (20:35)
[2019-05-22] MEDS: Mirtazapine TAB* 15 MG PO SCH (20:35)
[2019-05-22] MEDS: Polyethylene Glycol 3350* 17 GM PACKET PO SCH (20:37)
[2019-05-23] MEDS: Ciprofloxacin TAB* 500 MG PO SCH (08:40)
[2019-05-23] MEDS: Calcium/Vitamin D TAB 250/125* TAB PO SCH (08:40)
[2019-05-23] MEDS: MULTIVITAMIN PO SCH (08:41)
[2019-05-23] MEDS: [UNRECOGNIZED DRUG - OTHER] PO SCH (08:41)
[2019-05-23] MEDS: Docusate CAP* 100 MG PO SCH (08:41)
[2019-05-23] MEDS: Pantoprazole TAB * 40 MG TAB PO SCH (08:43)
[2019-05-23 09:08] VITALS: BP 107/53
--- NOTE | 2019-05-26 13:16 | DS ---
CC: [facility]; Dr. Barbara Lomeli * DISCHARGE SUMMARY: DATE OF ADMISSION: 05/06/19 DATE OF DISCHARGE: 05/23/19 SUPERVISING PSYCHIATRIST: Kelvin Mccloud MD * (DICTATED BY CYNTHIA MURPHY NP) DIAGNOSES: 1. Major depressive disorder with psychotic features. 2. Obsessive-compulsive disorder, cluster B traits. CONDITION AT THE TIME OF DISCHARGE: Improved. The patient has been safe on all checks. She has been decreased to 30 minute observation. She has been compliant with medications. See below and consultation by Dr Guillermo Gutierrez for results on psychometric cognitive testing. The patient participated in the meeting with her daughter wherein further outpatient resources were discussed including referral to ACT team and long-term housing referrals. The patient reported desire to be discharged. She had difficulty with transition of packing up her belongings related to OCD diagnosis. The patient was assisted by the nursing staff and her daughter and escorted to her daughter's vehicle. The patient was discharged to home. MENTAL STATUS EXAM: Thalia is a 64-year-old white female, , thin framed , appears underweight. She is neatly groomed and casually dressed in her own clothing. She is alert and oriented x3. Eye contact is good. Speech is soft, spontaneous delayed at times. Concentration is fair. Memory is 2/3. No abnormal psychomotor activity noted. Mood is anxious with restrictive affect. Thought process is circumstantial, logical and impoverished at times. Thought content is negative for SI or passive wish. She denies suicidal ideations , HI or . She denies auditory or visual hallucinations. She has somatic delusions. Insight and judgment are fair. Fund of knowledge is adequate. She appears to have low average if not borderline intellect. INSTRUCTIONS GIVEN TO THE PATIENT: A. Medications: 1. Aripiprazole 10 mg p.o. daily. 2. Clonazepam 1 mg p.o. q.h.s. 3. Docusate 100 mg p.o. b.i.d. 4. Calcium with vitamin D one tablet p.o. daily. 5. Refresh Optive Advanced drops 2 drops to both eyes b.i.d. p.r.n. dry eye. 6. Vitamin D3 2000 units p.o. daily. 7. Mirtazapine 30 mg p.o. q.h.s. 8. Multivitamin with minerals liquid 15 mg daily. 9. Pantoprazole 40 mg daily. 10. MiraLAX 17 g p.o. daily p.r.n. constipation. 11. Senokot 2 tabs p.o. at bedtime. B. Diet: Regular. C. Activity: Ambulation as tolerated. Tobacco cessation is not applicable. There are no pending labs or diagnostic studies. D. Followup care: The patient will follow up with [facility] while awaiting a referral to ACT team and she can follow up with her primary care provider Dr. Barbara Lomeli. E. Substance use followup: Not applicable. HOSPITAL COURSE: Part A: Reason for admission: The patient presented to the emergency department referred by her daughter due to worsening depressive symptoms and inability to care for herself in the home. History of present illness: Thalia is known to the adult inpatient psychiatric service from at least 3 previous inpatient admissions in the last year. After her last admission, she was taken to court for treatment over objection and transferred to [facility], where she was on admission from to 02/28/19. Her daughter asserts that during the admission her medication regimen was changed and does not believe that the current medications are effective. The patient reports having been fully compliant with taking prescribed medication and denies adverse effect. She avidly denies thoughts of suicide and appears puzzled as to why her daughter has referred her. She admits she has been self-isolative and been experiencing decreased interest in previously enjoyable activities, lack of motivation, impaired attention and concentration and feelings of helplessness. She denies change in sleep or appetite. The patient admits that she had been worrying excessively, has felt tense and voiced a number of somatic complaints. She has stressors of her car breaking down and frustration with hearing aids. Part B: Psychiatric treatment rendered: The patient was admitted to adult behavioral services unit on involuntary status due to history of poor insight and judgment. Her outpatient medications were resumed which included olanzapine 5 mg at bedtime. She appeared somnolent, this was changed to aripiprazole. The patient has well documented history of adverse reactions and untoward effects from medications. It is my opinion that a lot of these effects are psychosomatic in nature. The patient denies having disordered eating; however, she is noted to have a very restricted diet and appears grossly underweight. She is circumstantial about constipation and need for laxatives. The patient also focused on hearing aid problems. She admitted to some depression but did not want to change Remeron 30mg. She exhibited paranoid ideations but had poor insight. She declined offer of referral for ECT. The initial covering psychiatrist spoke with her daughter who said that the patient was beginning to be more suspicious at home and had done this on clomipramine but refuses this medication. Daughter says that the patient has had lifelong OCD and decompensated greatly after her and the patient began to live with family members. The patient denied improvement in mood with Abilify but was objectively noted to have more expression in her face. She reported adequate sleep. She endorses depression and somatic preoccupations about bowel regimen. The patient was present in all groups and attended programming. She often ruminated about not being able to understand the material due to hearing loss and inability to understand paper work. The patient was admitted to my service on 05/16/19. She reported that her mood is "not good" and referred to her leggings being constricting due to weight gain and constipation. She reported feeling nervous all the time. She gives vague answers to questions and stares silently when I ask direct, close-ended questions. She reports confusion about why she is in the hospital but is receptive to information about depressive symptoms and lack of independent functioning. The patient completed a MoCA assessment with this caption writer and participated with vigor. She scored 21 out of 30, missing points for drawing a cube, serial 7s, delayed recall and inability to orient to the building or town. She reports attempting to read books or worksheets and is frustrated that she cannot remember the previous page and "can't figure out what to do with it." We increased her aripiprazole to 7 mg daily, obtained vitamin D and B12 levels, which were within normal limits. We obtained PT and OT consults, in which the patient participated and without difficulty. The patient refused MRI citing that she had had many of them in the past while living in [place]. The patient met with psychologist Dr. Guillermo Gutierrez for psychometric cognitive testing. Please see consultation report from 05/18/19. Briefly, further evaluation would help in regards to ascertaining whether cognitive impairment is secondary to depression or if there is more organic processes. We had a family meeting with the patient's daughter Dominique and Thalia joined us later in the meeting. We discussed the results of psychological testing and the patient's presentation. Dominique was informed of referral made in regards to long-term housing options, ACT team and recommendations for Thalia to return home in the meantime. We discussed potential for in-home resources to assist family as well. Thalia was informed of the above when joining in the meeting. She often responded with either an intense stare of selective mutism or blaming others for "doing this to me." Team members encouraged Thalia to assert her independence upon return to home and attempted to discuss empowerment. We converted the patient to voluntary status. She was noted to have a UTI with Enterococcus faecalis and she was treated with Cipro. Social work submitted a SPOE referral to [facility] for ACT and mental health housing. The patient continued to be circumstantial about constipation and tight fitting leggings. She was notified of weight change of negative 1 pound and states "the scale must be wrong." The patient was safe on all checks. She no longer met criteria for psychiatric hospitalization, including absence of suicidal ideation and performing her own care. Much patient education was given to the patient and her daughter in regards to boundaries and limit setting. CYNTHIA MURPHY, BOLIVAR [id number]/[facility] #: [id number] MTDSharad
== END 2019-05-23 13:45 | disposition home or self-care (01) | DRG 885 ==
LOC: ED 16:48 → BSU 20:10
PROVIDERS: ADMIT Psychiatry & Neurology Psychiatry; ATTEND Psychiatry & Neurology Psychiatry
PROC: GZHZZZZ Group Psychotherapy (ICD-10-PCS; principal; 2019-05-18)
DX: F33.3 Major depressive disorder, recurrent, severe with psychotic symptoms (principal); Z68.1 Body mass index [BMI] 19.9 or less, adult; F42.9 Obsessive-compulsive disorder, unspecified; K58.9 Irritable bowel syndrome, unspecified; M81.0 Age-related osteoporosis without current pathological fracture; H91.93 Unspecified hearing loss, bilateral; Z62.810 Personal history of physical and sexual abuse in childhood; F45.9 Somatoform disorder, unspecified; K59.09 Other constipation; F50.9 Eating disorder, unspecified; F41.0 Panic disorder [episodic paroxysmal anxiety]; F43.10 Post-traumatic stress disorder, unspecified; F44.81 Dissociative identity disorder; M51.86 Other intervertebral disc disorders, lumbar region; Z88.5 Allergy status to narcotic agent; Z88.6 Allergy status to analgesic agent; Z88.1 Allergy status to other antibiotic agents; Z88.8 Allergy status to other drugs, medicaments and biological substances; Z88.2 Allergy status to sulfonamides; Z88.0 Allergy status to penicillin; Z82.0 Family history of epilepsy and other diseases of the nervous system; Z81.8 Family history of other mental and behavioral disorders; Z91.410 Personal history of adult physical and sexual abuse; Z80.0 Family history of malignant neoplasm of digestive organs; Z97.4 Presence of external hearing-aid
CPT/HCPCS: 36415; 80053; 80061; 80307; 80320; 80329; 81003; 81015; 82306; 82607; 83036; 84443; 85025; 87077; 87086; 87186; 90853; 96130; 99222; 99231; 99232; 99233; 99238; 99285; A9270-GY; G0480; G8978-GP-CI; G8979-GP-CI; G8980-GP-CI

== ENCOUNTER 2019-06-24 18:04 | Emergency (ER) | payer MEDICARE, MEDICAID ==
--- NOTE | 2019-06-24 18:41 | ED ---
Psychiatric Complaint - HPI Summary HPI Summary: 64 year old F presenting to [facility] accompanied by daughter complains of suicidal ideation since this afternoon. Patient states her daughter was brought her to the ED because they had disagreements. Per daughter, patient made suicidal comments so daughter brought patient to ED for mental health evaluation. Symptoms aggravated by nothing. Symptoms alleviated by nothing. - History Of Current Complaint Chief Complaint: EDMentalHealth Time Seen by Provider: 06/24/19 18:17 Hx Obtained From: Patient, Family/Imaging System Administrator - daughter Onset/Duration: Lasting Hours, Still Present Timing: Constant Aggravating Factor(s): Nothing Alleviating Factor(s): Nothing - Allergies/Home Medications Allergies/Adverse Reactions: Allergies Allergy/AdvReac Type Severity Reaction Status Date / Time acetaminophen [From Percocet] Allergy Unknown Verified 02/03/19 16:48 Reaction Details amitriptyline [From Elavil] Allergy Unknown Verified 02/03/19 16:48 Reaction Details azithromycin [From Zithromax] Allergy Rash Verified 02/03/19 16:48 bupropion Allergy Hives Verified 02/03/19 16:48 [From Wellbutrin SR] buspirone [From BuSpar] Allergy Unknown Verified 02/03/19 16:48 Reaction Details cefuroxime Allergy Eyes Verified 02/03/19 16:48 Itchy/Swollen/Red/Watery chondroitin sulfate A Allergy Hives Verified 02/03/19 16:48 [From Osteo Bi-Flex] citalopram [From Celexa] Allergy Unknown Verified 02/03/19 16:48 Reaction Details codeine Allergy Hives Verified 02/03/19 16:48 dexlansoprazole Allergy Nausea Verified 02/03/19 16:48 [From Dexilant] divalproex sodium Allergy Unknown Verified 02/03/19 16:48 [From Depakote] Reaction Details doxycycline Allergy Unknown Verified 02/03/19 16:48 Reaction Details duloxetine [From Cymbalta] Allergy Hives Verified 02/03/19 16:48 erythromycin base Allergy Unknown Verified 02/03/19 16:48 Reaction Details escitalopram [From Lexapro] Allergy Itching Verified 02/03/19 16:48 esomeprazole [From Nexium] Allergy Stomach Verified 02/03/19 16:48 Cramps fluoxetine [From Prozac] Allergy Hives Verified 02/03/19 16:48 glucosamine Allergy Hives Verified 02/03/19 16:48 guaifenesin [From Mucinex] Allergy Nausea Verified 02/03/19 16:48 Lactobacillus rhamnosus GG Allergy Rash Verified 02/03/19 16:48 [From Culturelle] methocarbamol [From Robaxin] Allergy Hives Verified 02/03/19 16:48 metronidazole Allergy Unknown Verified 02/03/19 16:48 Reaction Details mometasone furoate Allergy Difficulty Verified 02/03/19 16:48 [From Asmanex Twisthaler] Swallowing nalbuphine [From Nubain] Allergy See Comment Verified 02/03/19 16:48 nefazodone [From Serzone] Allergy Hives Verified 02/03/19 16:48 nitrofurantoin Allergy Unknown Verified 02/03/19 16:48 [From Macrobid] Reaction Details norfloxacin [From Noroxin] Allergy Unknown Verified 02/03/19 16:48 Reaction Details NSAIDS (Non-Steroidal Allergy Stomach Verified 02/03/19 16:48 Anti-Inflamma Cramps oxycodone [From Percocet] Allergy Unknown Verified 02/03/19 16:48 Reaction Details paroxetine [From Paxil] Allergy Agitation Verified 02/03/19 16:48 Penicillins Allergy Unknown Verified 02/03/19 16:48 Reaction Details prednisone Allergy See Comment Verified 02/03/19 16:48 pseudoephedrine Allergy See Comment Verified 02/03/19 16:48 [From Sudafed] ranitidine Allergy Dizziness Verified 02/03/19 16:48 rofecoxib [From Vioxx] Allergy Edema Verified 02/03/19 16:48 sertraline [From Zoloft] Allergy Shakes Verified 02/03/19 16:48 Sulfa (Sulfonamide Allergy Unknown Verified 02/03/19 16:48 Antibiotics) Reaction Details tramadol Allergy See Comment Verified 02/03/19 16:48 trimethoprim Allergy Unknown Verified 02/03/19 16:48 Reaction Details venlafaxine [From Effexor] Allergy Agitation Verified 02/03/19 16:48 probiotics Allergy Rash Uncoded 02/03/19 16:48 properidil Allergy See Comment Uncoded 02/03/19 16:48 Home Medications: Home Medications Docusate CAP* [Colace Cap*] 100 mg PO BID PRN 06/24/19 [History Confirmed ] PMH/Surg Hx/FS Hx/Imm Hx Cardiovascular History: Reports: Hx Hypotension GI History: Reports: Hx Irritable Bowel, Other GI Disorders - chronic constipation Musculoskeletal History: Reports: Hx Osteoporosis, Other Musculoskeletal History - Lumbar disc issues Sensory History: Reports: Hx Contacts or Glasses, Hx Deafness, Hx Hearing Aid, Hx Hearing Problem Opthamlomology History: Reports: Hx Contacts or Glasses Neurological History: Reports: Other Neuro Impairments/Disorders - reports distant hx possible seizure r/t benzo withdrawal Psychiatric History: Reports: Hx Anxiety, Hx Eating Disorder, Hx Panic Disorder , Hx Post Traumatic Stress Disorder, Hx Inpatient Treatment, Hx Community Mental Health Tx, Other Psychiatric Issues/Disorders - OCD, dissociative identity disorder, PTSD, somatization disorder, SI Denies: Hx Suicide Attempt, Hx of Violent Episodes Against Others - Surgical History Surgery Procedure, Year, and Place: 2 C-sections Infectious Disease History: No Infectious Disease History: Denies: Traveled Outside the [place] in Last 30 Days - Family History Known Family History: Positive: Other - colon cancer, alzheimer's Negative: Cardiac Disease - Social History Alcohol Use: None Hx Substance Use: No Substance Use Type: Reports: None Hx Tobacco Use: No Smoking Status (MU): Never Smoked Tobacco Review of Systems Negative: Fever Positive: Other - suicidal ideation All Other Systems Reviewed And Are Negative: Yes Physical Exam - Summary Physical Exam Summary: Appearance: The patient is well-nourished in no acute distress and in no acute pain. Skin: The skin is warm and dry, and skin color reflects adequate perfusion. HEENT: The head is normocephalic and atraumatic. The pupils are equal and reactive. The conjunctivae are clear and without drainage. Nares are patent and without drainage. Mouth reveals moist mucous membranes, and the throat is without erythema and exudate. The external ears are intact. The ear canals are patent and without drainage. The tympanic membranes are intact. Neck: The neck is supple with full range of motion and non-tender. There are no carotid bruits. There is no neck vein distension. Respiratory: Chest is non-tender. Lungs are clear to auscultation and breath sounds are symmetrical and equal. Cardiovascular: Heart is regular rate and rhythm. There is no murmur or rub auscultated. There is no peripheral edema and pulses are symmetrical and equal. Abdomen: The abdomen is soft and non-tender. There are normal bowel sounds heard in all four quadrants and there is no organomegaly palpated. Musculoskeletal: There is no back tenderness noted. Extremities are non-tender with full range of motion. There is good capillary refill. There is no peripheral edema or calf tenderness elicited. Neurological: Patient is alert and oriented to person, place and time. The patient has symmetrical motor strength in all four extremities. Cranial nerves are grossly intact. Deep tendon reflexes are symmetrical and equal in all four extremities. Psychiatric: The patient has an appropriate affect and does not exhibit any anxiety or depression. Triage Information Reviewed: Yes Vital Signs On Initial Exam: Initial Vitals Temp Pulse Resp BP Pulse Ox 97.9 F 101 20 127/91 100 06/24/19 18:10 06/24/19 18:10 06/24/19 18:10 06/24/19 18:10 06/24/19 18:10 Vital Signs Reviewed: Yes Diagnostics - Vital Signs Vital Signs Temp Pulse Resp BP Pulse Ox 06/24/19 18:10 97.9 F 101 20 127/91 100 - Laboratory Result Diagrams: 06/24/19 18:46 06/24/19 18:46 Lab Statement: Any lab studies that have been ordered have been reviewed, and results considered in the medical decision making process. Re-Evaluation - Re-Evaluation First Eval Re-Evaluation Time: 19:55 Comment: patient is medically cleared for MHE Course/Dx - Course Course Of Treatment: Ms. Craig has been cooperative and medically cleared. We' re awaiting mental health evaluation at this time - Differential Dx/Clinical Impression Provider Diagnosis: Schizophrenia Discharge ED - Sign-Out/Discharge Documenting (check all that apply): Sign-Out Patient Signing out patient TO: Radha Pinon Receiving patient FROM: Yehuda Miller - Discharge Plan Condition: Stable Referrals: Barbara Lomeli DO [Primary Care Provider] - - Billing Disposition and Condition Condition: STABLE - Attestation Statements Document Initiated by Scribe: Yes Documenting Scribe: Brianna Gray Provider For Whom Scribe is Documenting (Include Credential): Yehuda Miller MD Scribe Attestation: Brianna Weinstein, scribed for Yehuda Miller MD on 06/24/19 at 2134. Scribe Documentation Reviewed: Yes Provider Attestation: The documentation as recorded by the scribe, Brianna Gray accurately reflects the service I personally performed and the decisions made by me, Yehuda Miller MD Status of Rosie Document: Viewed
[2019-06-24 19:01] LABS: ABS Eosinophils 0.1 10^3/ul (0-0.6); ABS Lymphocytes 0.9 10^3/ul (1.0-4.8); ABS Monocytes 0.3 10^3/ul (0-0.8); ABS Neutrophils 4.6 10^3/ul (1.5-7.7); Eosinophil % 0.9 %; Hematocrit 42 % (35-47); Hemoglobin 14.5 g/dL (12.0-16.0); Lymphocyte % 14.7 %; Mean Corpuscular HGB Conc 35 g/dL (31-36); Mean Corpuscular Hemoglobin 30 pg (27-31); Mean Corpuscular Volume 87 fL (80-97); Nucleated Red Blood Cells % 0.1; Platelet Count 307 10^3/uL (150-450); Red Blood Count 4.76 10^6 /uL (3.70-4.87); Red Cell Distribution Width 13 % (10-15); White Blood Count 5.9 10^3/uL (3.5-10.8)
[2019-06-24 19:19] LABS: Acetaminophen < 15 mcg/mL; Alcohol < 10 mg/dL (<10); Salicylate < 2.50 mg/dL (<30)
[2019-06-24 19:20] LABS: ALT 18 U/L (7-52); AST 17 U/L (13-39); Albumin 4.6 g/dL (3.2-5.2); Albumin/Globulin Ratio 1.8 (1-3); Alkaline Phosphatase 68 U/L (34-104); Anion Gap 8 mmol/L (2-11); BUN/Creatinine Ratio 23.4 (8-20); Blood Urea Nitrogen 18 mg/dL (6-24); CO2 Carbon Dioxide 32 mmol/L (22-32); Calcium 9.5 mg/dL (8.6-10.3); Chloride 103 mmol/L (101-111); EGFR African American 91.9 (>60); Globulin 2.5 g/dL (2-4); Glucose 106 mg/dL (70-100); Potassium 3.7 mmol/L (3.5-5.0); Sodium 143 mmol/L (135-145); Total Protein 7.1 g/dL (6.4-8.9)
[2019-06-24 19:30] LABS: Urine Appearance Cloudy; Urine Bacteria 3+ (Absent); Urine Bilirubin Negative (Negative); Urine Blood 1+ (Negative); Urine Color Yellow; Urine Glucose Negative (Negative); Urine Ketones Trace (Negative); Urine Nitrite Negative (Negative); Urine Protein Negative (Negative); Urine Red Blood Cell 2+(6-10/hpf) (Absent); Urine Specific Gravity 1.019 (1.010-1.030); Urine Squamous Epithelial Cell Present (Absent); Urine Urobilinogen Negative (Negative); Urine White Blood Cell 1+(6-10/hpf) (Absent)
[2019-06-24 19:34] LABS: TSH (Thyroid Stimulating Horm) 1.43 mcIU/mL (0.34-5.60)
[2019-06-24 19:47] LABS: Urine Benzodiazepine Screen None Detected (None Detect); Urine Opiates Screen None Detected (None Detect)
[2019-06-24 21:41] VITALS: BP 128/89
--- NOTE | 2019-06-27 06:23 | PN ---
Progress Note - Progress Note Date of Service: 06/27/19 Note: patient had a urine obtained in ED. urine culture shows Enterococcus faecalis > 100,000. patient is allergic to every oral medication that is sensitive to. called and left vm told to call back. if having symptoms need to verify allergies and if true allergies will need to come back to the ED for IV antibiotics.
== END 2019-06-24 22:30 | disposition home or self-care (01) ==
LOC: ED 18:04
DX: F20.9 Schizophrenia, unspecified (principal); F41.9 Anxiety disorder, unspecified; F43.10 Post-traumatic stress disorder, unspecified; Z79.899 Other long term (current) drug therapy; Z88.6 Allergy status to analgesic agent; Z88.1 Allergy status to other antibiotic agents; Z88.5 Allergy status to narcotic agent; Z88.0 Allergy status to penicillin; Z88.2 Allergy status to sulfonamides; Z88.8 Allergy status to other drugs, medicaments and biological substances
CPT/HCPCS: 36415; 80053; 80307; 80320; 80329; 81003; 81015; 84443; 85025; 87077; 87086; 87186; 99284; G0480

== ENCOUNTER 2019-08-01 11:34 | Emergency (ER) | payer MEDICARE, MEDICAID ==
--- NOTE | 2019-08-01 11:59 | ED ---
Psychiatric Complaint - HPI Summary HPI Summary: Pt is a 64 y/o F presenting to the ED for a psychiatric complaint. Pt is presenting to the ED on a code 941. Pt was seeing her therapist on 08/01/19 and did not answer a question regarding self-harm. Pt denies any fever, chills, decreased appetite, erythema of eyes, sore throat, CP, SOB, cough, abdominal pain, N/V, dysuria, hematuria, myalgia, edema, rash, dizziness, insomnia, SI, self-harm, HI, or recent illness. Pt was previously seen at [facility] and discharged. Pt denies alcohol, tobacco, or drug use. Pt takes her medications as directed. - History Of Current Complaint Chief Complaint: EDMentalHealth Time Seen by Provider: 08/01/19 11:50 Hx Obtained From: Patient Onset/Duration: Sudden Onset, Still Present Timing: Constant Severity Initially: Moderate Severity Currently: Moderate Aggravating Factor(s): Nothing Alleviating Factor(s): Nothing Associated Signs And Symptoms: Positive: Negative Has Suicidal: Denies: Thoughts Has Homicidal: Denies: Thoughts - Allergies/Home Medications Allergies/Adverse Reactions: Allergies Allergy/AdvReac Type Severity Reaction Status Date / Time acetaminophen [From Percocet] Allergy Unknown Verified 08/01/19 11:46 Reaction Details amitriptyline [From Elavil] Allergy Unknown Verified 08/01/19 11:46 Reaction Details azithromycin [From Zithromax] Allergy Rash Verified 08/01/19 11:46 bupropion Allergy Hives Verified 08/01/19 11:46 [From Wellbutrin SR] buspirone [From BuSpar] Allergy Unknown Verified 08/01/19 11:46 Reaction Details cefuroxime Allergy Eyes Verified 08/01/19 11:46 Itchy/Swollen/Red/Watery chondroitin sulfate A Allergy Hives Verified 08/01/19 11:46 [From Osteo Bi-Flex] citalopram [From Celexa] Allergy Unknown Verified 08/01/19 11:46 Reaction Details codeine Allergy Hives Verified 08/01/19 11:46 dexlansoprazole Allergy Nausea Verified 08/01/19 11:46 [From Dexilant] divalproex sodium Allergy Unknown Verified 08/01/19 11:46 [From Depakote] Reaction Details doxycycline Allergy Unknown Verified 08/01/19 11:46 Reaction Details duloxetine [From Cymbalta] Allergy Hives Verified 08/01/19 11:46 erythromycin base Allergy Unknown Verified 08/01/19 11:46 Reaction Details escitalopram [From Lexapro] Allergy Itching Verified 08/01/19 11:46 esomeprazole [From Nexium] Allergy Stomach Verified 08/01/19 11:46 Cramps fluoxetine [From Prozac] Allergy Hives Verified 08/01/19 11:46 glucosamine Allergy Hives Verified 08/01/19 11:46 guaifenesin [From Mucinex] Allergy Nausea Verified 08/01/19 11:46 Lactobacillus rhamnosus GG Allergy Rash Verified 08/01/19 11:46 [From Culturelle] methocarbamol [From Robaxin] Allergy Hives Verified 08/01/19 11:46 metronidazole Allergy Unknown Verified 08/01/19 11:46 Reaction Details mometasone furoate Allergy Difficulty Verified 08/01/19 11:46 [From Asmanex Twisthaler] Swallowing nalbuphine [From Nubain] Allergy See Comment Verified 08/01/19 11:46 nefazodone [From Serzone] Allergy Hives Verified 08/01/19 11:46 nitrofurantoin Allergy Unknown Verified 08/01/19 11:46 [From Macrobid] Reaction Details norfloxacin [From Noroxin] Allergy Unknown Verified 08/01/19 11:46 Reaction Details NSAIDS (Non-Steroidal Allergy Stomach Verified 08/01/19 11:46 Anti-Inflamma Cramps oxycodone [From Percocet] Allergy Unknown Verified 08/01/19 11:46 Reaction Details paroxetine [From Paxil] Allergy Agitation Verified 08/01/19 11:46 Penicillins Allergy Unknown Verified 08/01/19 11:46 Reaction Details prednisone Allergy See Comment Verified 08/01/19 11:46 pseudoephedrine Allergy See Comment Verified 08/01/19 11:46 [From Sudafed] ranitidine Allergy Dizziness Verified 08/01/19 11:46 rofecoxib [From Vioxx] Allergy Edema Verified 08/01/19 11:46 sertraline [From Zoloft] Allergy Shakes Verified 08/01/19 11:46 Sulfa (Sulfonamide Allergy Unknown Verified 08/01/19 11:46 Antibiotics) Reaction Details tramadol Allergy See Comment Verified 08/01/19 11:46 trimethoprim Allergy Unknown Verified 08/01/19 11:46 Reaction Details venlafaxine [From Effexor] Allergy Agitation Verified 08/01/19 11:46 probiotics Allergy Rash Uncoded 08/01/19 11:46 properidil Allergy See Comment Uncoded 08/01/19 11:46 Home Medications: Home Medications Multivitamins/Minerals TAB* [Theragran/minerals TAB*] 1 tab PO DAILY 08/01/19 [ History Confirmed 08/01/19] diPHENhydraMINE PO* [Benadryl PO 25 MG TAB*] 25 mg PO Q8HR 08/01/19 [History Confirmed 08/01/19] PMH/Surg Hx/FS Hx/Imm Hx Previously Healthy: Yes Cardiovascular History: Reports: Hx Hypotension GI History: Reports: Hx Irritable Bowel, Other GI Disorders - chronic constipation Musculoskeletal History: Reports: Hx Osteoporosis, Other Musculoskeletal History - Lumbar disc issues Sensory History: Reports: Hx Contacts or Glasses, Hx Deafness, Hx Hearing Aid, Hx Hearing Problem Denies: Hx Legally Blind Opthamlomology History: Reports: Hx Contacts or Glasses Denies: Hx Legally Blind EENT History: Reports: Hx Deafness Neurological History: Reports: Other Neuro Impairments/Disorders - reports distant hx possible seizure r/t benzo withdrawal Psychiatric History: Reports: Hx Anxiety, Hx Eating Disorder, Hx Panic Disorder , Hx Post Traumatic Stress Disorder, Hx Inpatient Treatment, Hx Community Mental Health Tx, Other Psychiatric Issues/Disorders - OCD, dissociative identity disorder, PTSD, somatization disorder, SI Denies: Hx Suicide Attempt, Hx of Violent Episodes Against Others - Surgical History Surgical History: Yes Surgery Procedure, Year, and Place: 2 C-sections Infectious Disease History: No Infectious Disease History: Denies: Traveled Outside the [place] in Last 30 Days - Family History Known Family History: Positive: Other - colon cancer, alzheimer's Negative: Cardiac Disease - Social History Alcohol Use: None Hx Substance Use: No Substance Use Type: Reports: None Hx Tobacco Use: No Smoking Status (MU): Never Smoked Tobacco Review of Systems Positive: Other - Negative decreased appetite. Negative: Fever, Chills Negative: Erythema Negative: Sore Throat Negative: Chest Pain Negative: Shortness Of Breath, Cough Negative: Abdominal Pain, Vomiting, Nausea Negative: dysuria, hematuria Negative: Myalgia, Edema Negative: Rash Neurological: Other - Negative dizziness Positive: Other - Negative SI, HI, or self-harm All Other Systems Reviewed And Are Negative: Yes Physical Exam - Summary Physical Exam Summary: Constitutional: Well-developed, Well-nourished, Alert. (-) Distressed Skin: Warm, Dry HENT: Normocephalic; Atraumatic Eyes: Conjunctiva normal Neck: Musculoskeletal ROM normal neck. (-) JVD, (-) Stridor, (-) Tracheal deviation Cardio: Rhythm regular, rate normal, Heart sounds normal; Intact distal pulses; The pedal pulses are 2+ and symmetric. Radial pulses are 2+ and symmetric. (-) Murmur Pulmonary/Chest wall: Effort normal. (-) Respiratory distress, (-) Wheezes, (-) Rales Abd: Soft, (-) tenderness, (-) Distension, (-) Guarding, (-) Rebound Musculoskeletal: (-) Edema Lymph: (-) Cervical adenopathy Neuro: Alert, Oriented x3 Psych: Mood normal and flat affect Triage Information Reviewed: Yes Vital Signs On Initial Exam: Initial Vitals Temp Pulse Resp BP Pulse Ox 98.7 F 108 18 108/69 97 08/01/19 11:42 08/01/19 11:42 08/01/19 11:42 08/01/19 11:42 08/01/19 11:42 Vital Signs Reviewed: Yes Procedures - Sedation Patient Received Moderate/Deep Sedation with Procedure: No Diagnostics - Vital Signs Vital Signs Temp Pulse Resp BP Pulse Ox 08/01/19 11:42 98.7 F 108 18 108/69 97 - Laboratory Result Diagrams: 08/01/19 11:55 08/01/19 11:55 Lab Statement: Any lab studies that have been ordered have been reviewed, and results considered in the medical decision making process. Re-Evaluation - Re-Evaluation First Re-Evaluation Time: 11:55 Change: Unchanged Comment: At 11:55, pt is medically cleared for a MH evaluation. Course/Dx - Course Course Of Treatment: Pt is a 64 y/o F presenting to the ED for a psychiatric complaint. Pt is presenting to the ED on a code 941. Pt was seeing her therapist on 08/01/19 and did not answer a question regarding self-harm. Pt denies any fever, chills, decreased appetite, erythema of eyes, sore throat, CP , SOB, cough, abdominal pain, N/V, dysuria, hematuria, myalgia, edema, rash, dizziness, insomnia, SI, self-harm, HI, or recent illness. Pt was previously seen at [facility] and discharged. Pt denies alcohol, tobacco, or drug use. Pt takes her medications as directed. On exam, pt has a flat affect. At 11:55, pt is medically cleared for a MH evaluation. Laboratory abnormal findings: absolute lymphs 0.8, BUN/creatinine ratio 22.9. At 15:53, insurance application investigator states that pts case was reviewed by Dr. Cartwright who will discharge the pt with a diagnosis of depression. Pt will be discharged with a diagnosis of depression. - Differential Dx/Clinical Impression Provider Diagnosis: Depression - Physician Notifications Discussed Care Of Patient With: Hal Cartwright - At 15:53, insurance application investigator states that pts case was reviewed by Dr. Cartwright who will discharge the pt with a diagnosis of depression. Time Discussed With Above Provider: 15:53 Discharge ED - Sign-Out/Discharge Documenting (check all that apply): Patient Departure - Discharge - Discharge Plan Condition: Stable Referrals: Barbara Lomeli DO [Primary Care Provider] - - Attestation Statements Document Initiated by Scribe: Yes Documenting Scribe: Alia Davis Provider For Whom Scribe is Documenting (Include Credential): Lalo Bailey MD Scribe Attestation: Alia Weinstein, scribed for Lalo Bailey MD on 08/01/19 at 1555. Status of Scribe Document: Ready
[2019-08-01 12:09] LABS: ABS Basophils 0.1 10^3/ul (0-0.2); ABS Lymphocytes 0.8 10^3/ul (1.0-4.8); ABS Monocytes 0.5 10^3/ul (0-0.8); ABS Neutrophils 4.1 10^3/ul (1.5-7.7); Eosinophil % 0.7 %; Hematocrit 42 % (35-47); Hemoglobin 13.9 g/dL (12.0-16.0); Lymphocyte % 14.1 %; Mean Corpuscular HGB Conc 33 g/dL (31-36); Mean Corpuscular Hemoglobin 29 pg (27-31); Mean Corpuscular Volume 88 fL (80-97); Mean Platelet Volume 8.2 fL (7.4-10.4); Nucleated Red Blood Cells % 0.1; Platelet Count 337 10^3/uL (150-450); Red Blood Count 4.71 10^6 /uL (3.70-4.87); Red Cell Distribution Width 14 % (10-15); White Blood Count 5.4 10^3/uL (3.5-10.8)
[2019-08-01 12:18] LABS: ALT 15 U/L (7-52); AST 15 U/L (13-39); Albumin 4.4 g/dL (3.2-5.2); Albumin/Globulin Ratio 1.8 (1-3); Alkaline Phosphatase 58 U/L (34-104); Anion Gap 8 mmol/L (2-11); BUN/Creatinine Ratio 22.9 (8-20); Blood Urea Nitrogen 19 mg/dL (6-24); CO2 Carbon Dioxide 29 mmol/L (22-32); Calcium 9.3 mg/dL (8.6-10.3); Chloride 107 mmol/L (101-111); EGFR African American 84.3 (>60); EGFR Non-African American 69.7 (>60); Globulin 2.5 g/dL (2-4); Glucose 80 mg/dL (70-100); Potassium 3.5 mmol/L (3.5-5.0); Sodium 144 mmol/L (135-145); Total Protein 6.9 g/dL (6.4-8.9)
[2019-08-01 12:51] LABS: Acetaminophen < 15 mcg/mL; Alcohol < 10 mg/dL (<10); Salicylate < 2.50 mg/dL (<30)
[2019-08-01 13:05] LABS: TSH (Thyroid Stimulating Horm) 0.73 mcIU/mL (0.34-5.60)
--- NOTE | 2019-08-01 15:52 | PN ---
ED Psychiatric Progress Note Date of Service: 08/01/19 Subjective: Patient was sent to the emergency room for having a delay in answering question about self harm at the mental health clinic today. Her daughter was contacted and stated that she usually verbalizes when she is not doing well and feels at risk for hurting herself. She lives with her daughter. Denied access to firearms. Objective: Patient alert and orientated x 3 with fair grooming and hygiene. Restricted affect no SI/ HI or perceptual disturbances. Assessment: 64 year old female presented to the ED on the recommendations of the mental health clinic Plan: # Patient can be discharged home to her daughter # Patient is not suicidal and or homicidal #Patient has no suicide attempts in the last year , no access to firearms, lives with daughter , no active substance abuse, no recent life changing events # Daughter contacted for collateral information Vital Signs Temp Pulse Resp BP Pulse Ox 98.7 F 108 18 108/69 97 08/01/19 11:42 08/01/19 11:42 08/01/19 11:42 08/01/19 11:42 08/01/19 11:42 Lab Results - Entire Visit 08/01/19 08/01/19 11:55 11:55 WBC 5.4 RBC 4.71 Hgb 13.9 Hct 42 MCV 88 MCH 29 MCHC 33 RDW 14 Plt Count 337 MPV 8.2 Neut % (Auto) 75.4 Lymph % (Auto) 14.1 [place] % (Auto) 8.8 Eos % (Auto) 0.7 Baso % (Auto) 1.0 Absolute Neuts (auto) 4.1 Absolute Lymphs (auto) 0.8 L Absolute Monos (auto) 0.5 Absolute Eos (auto) 0.0 Absolute Basos (auto) 0.1 Absolute Nucleated RBC 0.0 Nucleated RBC % 0.1 Sodium 144 Potassium 3.5 Chloride 107 Carbon Dioxide 29 Anion Gap 8 BUN 19 Creatinine 0.83 Est GFR ( Amer) 84.3 Est GFR (Non-Af Amer) 69.7 BUN/Creatinine Ratio 22.9 H Glucose 80 Calcium 9.3 Total Bilirubin 0.40 AST 15 ALT 15 Alkaline Phosphatase 58 Total Protein 6.9 Albumin 4.4 Globulin 2.5 Albumin/Globulin Ratio 1.8 TSH 0.73 Salicylates < 2.50 Acetaminophen < 15 Serum Alcohol < 10
[2019-08-01 19:05] VITALS: BP 126/72
== END 2019-08-01 18:40 | disposition home or self-care (01) ==
LOC: ED 11:34
DX: F32.9 Major depressive disorder, single episode, unspecified (principal); F41.9 Anxiety disorder, unspecified; F43.10 Post-traumatic stress disorder, unspecified; Z79.899 Other long term (current) drug therapy; Z88.6 Allergy status to analgesic agent; Z88.3 Allergy status to other anti-infective agents; Z88.5 Allergy status to narcotic agent; Z88.0 Allergy status to penicillin; Z88.2 Allergy status to sulfonamides; Z88.8 Allergy status to other drugs, medicaments and biological substances
CPT/HCPCS: 36415; 80053; 80320; 80329; 84443; 85025; 99284; G0480

== ENCOUNTER 2019-09-16 18:28 | Inpatient (IN) | payer MEDICARE, MEDICAID ==
[2019-09-16 19:50] LABS: ABS Basophils 0.1 10^3/ul (0-0.2); ABS Lymphocytes 0.9 10^3/ul (1.0-4.8); ABS Monocytes 0.4 10^3/ul (0-0.8); ABS Neutrophils 4.3 10^3/ul (1.5-7.7); Eosinophil % 0.8 %; Hematocrit 36 % (35-47); Hemoglobin 12.3 g/dL (12.0-16.0); Lymphocyte % 16.1 %; Mean Corpuscular HGB Conc 34 g/dL (31-36); Mean Corpuscular Hemoglobin 30 pg (27-31); Mean Corpuscular Volume 90 fL (80-97); Mean Platelet Volume 7.4 fL (7.4-10.4); Platelet Count 288 10^3/uL (150-450); Red Blood Count 4.04 10^6 /uL (3.70-4.87); Red Cell Distribution Width 14 % (10-15); White Blood Count 5.8 10^3/uL (3.5-10.8)
[2019-09-16 20:11] LABS: ALT 14 U/L (7-52); AST 15 U/L (13-39); Albumin/Globulin Ratio 1.7 (1-3); Alkaline Phosphatase 49 U/L (34-104); Anion Gap 6 mmol/L (2-11); BUN/Creatinine Ratio 25.7 (8-20); Blood Urea Nitrogen 18 mg/dL (6-24); CO2 Carbon Dioxide 30 mmol/L (22-32); Calcium 9.3 mg/dL (8.6-10.3); Chloride 103 mmol/L (101-111); EGFR African American 102.6 (>60); EGFR Non-African American 84.8 (>60); Globulin 2.3 g/dL (2-4); Glucose 103 mg/dL (70-100); Sodium 139 mmol/L (135-145); Total Protein 6.3 g/dL (6.4-8.9)
[2019-09-16 20:17] LABS: Acetaminophen < 15 mcg/mL; Alcohol < 10 mg/dL (<10); Salicylate < 2.50 mg/dL (<30)
[2019-09-16 20:32] LABS: TSH (Thyroid Stimulating Horm) 0.84 mcIU/mL (0.34-5.60)
--- NOTE | 2019-09-16 20:52 | ED ---
Altered Mental Status - HPI Summary HPI Summary: This pt is a 64 Y/O F presenting to [facility] accompanied by her daughter for a CC of AMS. He daughter states that she has become paranoid and has been unable to take of herself effectively such as refusing to shower. She states that the pt has been peering out of cracked doors and woke her son up standing over his bed saying what did you say to me? Her daughter states that the pt has not taken her medications since 09/11/19. She is agitated when she is given her pills and has been refusing her medications. Her daughter states that the pt was already acting this way while she was taking her medications and her condition has worsened since 08/01/19. Her hands have become swollen starting this week. She has a PMHx of PTSD, OCD, DID, paranoia, and anxiety. . She has no aggravating or alleviating factors. This pt is a level 5 caveat due to her AMS. - History Of Current Complaint Chief Complaint: EDPsychosocial Stated Complaint: MHE PER DAUGHTER Time Seen by Provider: 09/16/19 19:14 Hx Obtained From: Family/[employer] - daughter Hx From Patient Unobtainable Due To: Altered Mental Status Last Known Well Date: 08/01/19 Onset/Duration: Unknown, Gradually Timing: Constant Severity Initially: Mild Severity Currently: Moderate Character: Confusion, Agitation, Responsiveness Aggravating Factor(s): Nothing Alleviating Factor(s): Nothing - Allergies/Home Medications Allergies/Adverse Reactions: Allergies Allergy/AdvReac Type Severity Reaction Status Date / Time acetaminophen [From Percocet] Allergy Unknown Verified 08/01/19 11:46 Reaction Details amitriptyline [From Elavil] Allergy Unknown Verified 08/01/19 11:46 Reaction Details azithromycin [From Zithromax] Allergy Rash Verified 08/01/19 11:46 bupropion Allergy Hives Verified 08/01/19 11:46 [From Wellbutrin SR] buspirone [From BuSpar] Allergy Unknown Verified 08/01/19 11:46 Reaction Details cefuroxime Allergy Eyes Verified 08/01/19 11:46 Itchy/Swollen/Red/Watery chondroitin sulfate A Allergy Hives Verified 08/01/19 11:46 [From Osteo Bi-Flex] citalopram [From Celexa] Allergy Unknown Verified 08/01/19 11:46 Reaction Details codeine Allergy Hives Verified 08/01/19 11:46 dexlansoprazole Allergy Nausea Verified 08/01/19 11:46 [From Dexilant] divalproex sodium Allergy Unknown Verified 08/01/19 11:46 [From Depakote] Reaction Details doxycycline Allergy Unknown Verified 08/01/19 11:46 Reaction Details duloxetine [From Cymbalta] Allergy Hives Verified 08/01/19 11:46 erythromycin base Allergy Unknown Verified 08/01/19 11:46 Reaction Details escitalopram [From Lexapro] Allergy Itching Verified 08/01/19 11:46 esomeprazole [From Nexium] Allergy Stomach Verified 08/01/19 11:46 Cramps fluoxetine [From Prozac] Allergy Hives Verified 08/01/19 11:46 glucosamine Allergy Hives Verified 08/01/19 11:46 guaifenesin [From Mucinex] Allergy Nausea Verified 08/01/19 11:46 Lactobacillus rhamnosus GG Allergy Rash Verified 08/01/19 11:46 [From Culturelle] methocarbamol [From Robaxin] Allergy Hives Verified 08/01/19 11:46 metronidazole Allergy Unknown Verified 08/01/19 11:46 Reaction Details mometasone furoate Allergy Difficulty Verified 08/01/19 11:46 [From Asmanex Twisthaler] Swallowing nalbuphine [From Nubain] Allergy See Comment Verified 08/01/19 11:46 nefazodone [From Serzone] Allergy Hives Verified 08/01/19 11:46 nitrofurantoin Allergy Unknown Verified 08/01/19 11:46 [From Macrobid] Reaction Details norfloxacin [From Noroxin] Allergy Unknown Verified 08/01/19 11:46 Reaction Details NSAIDS (Non-Steroidal Allergy Stomach Verified 08/01/19 11:46 Anti-Inflamma Cramps oxycodone [From Percocet] Allergy Unknown Verified 08/01/19 11:46 Reaction Details paroxetine [From Paxil] Allergy Agitation Verified 08/01/19 11:46 Penicillins Allergy Unknown Verified 08/01/19 11:46 Reaction Details prednisone Allergy See Comment Verified 08/01/19 11:46 pseudoephedrine Allergy See Comment Verified 08/01/19 11:46 [From Sudafed] ranitidine Allergy Dizziness Verified 08/01/19 11:46 rofecoxib [From Vioxx] Allergy Edema Verified 08/01/19 11:46 sertraline [From Zoloft] Allergy Shakes Verified 08/01/19 11:46 Sulfa (Sulfonamide Allergy Unknown Verified 08/01/19 11:46 Antibiotics) Reaction Details tramadol Allergy See Comment Verified 08/01/19 11:46 trimethoprim Allergy Unknown Verified 08/01/19 11:46 Reaction Details venlafaxine [From Effexor] Allergy Agitation Verified 08/01/19 11:46 probiotics Allergy Rash Uncoded 08/01/19 11:46 properidil Allergy See Comment Uncoded 08/01/19 11:46 PMH/Surg Hx/FS Hx/Imm Hx Previously Healthy: Yes Cardiovascular History: Reports: Hx Hypotension GI History: Reports: Hx Irritable Bowel, Other GI Disorders - chronic constipation Musculoskeletal History: Reports: Hx Osteoporosis, Other Musculoskeletal History - Lumbar disc issues Sensory History: Reports: Hx Contacts or Glasses, Hx Deafness, Hx Hearing Aid, Hx Hearing Problem Denies: Hx Legally Blind Opthamlomology History: Reports: Hx Contacts or Glasses Denies: Hx Legally Blind Neurological History: Reports: Other Neuro Impairments/Disorders - reports distant hx possible seizure r/t benzo withdrawal Psychiatric History: Reports: Hx Anxiety, Hx Eating Disorder, Hx Panic Disorder , Hx Post Traumatic Stress Disorder, Hx Inpatient Treatment, Hx Community Mental Health Tx, Other Psychiatric Issues/Disorders - OCD, dissociative identity disorder, PTSD, somatization disorder, SI Denies: Hx Suicide Attempt, Hx of Violent Episodes Against Others - Cancer History Hx Chemotherapy: No Hx Radiation Therapy: No - Surgical History Surgical History: Yes Surgery Procedure, Year, and Place: 2 C-sections - Immunization History Date of Tetanus Vaccine: utd Date of Influenza Vaccine: none Immunizations Up to Date: Yes Infectious Disease History: No Infectious Disease History: Denies: Traveled Outside the [place] in Last 30 Days - Family History Known Family History: Positive: Other - colon cancer, alzheimer's Negative: Cardiac Disease - Social History Occupation: Retired Lives: With Family Alcohol Use: None Hx Substance Use: No Substance Use Type: Reports: None Hx Tobacco Use: No Smoking Status (MU): Never Smoked Tobacco Review of Systems - ROS Summary Review of Systems Summary: Home Medications Medication Instructions Recorded Confirmed Type Acetaminophen [Tylenol Extra 1,000 mg PO Q6HR PRN 11/30/18 08/01/19 History Strength] Carboxymethyl/Glycerin/Poly80 2 drop BOTH EYES BID PRN 11/30/18 08/01/19 History [Refresh Optive Advanced Drops] Multivitamins ADULT w/MIN LIQ* 15 ml PO DAILY udc 02/10/19 08/01/19 Rx [Theragran w/MINERALS LIQ*] Polyethylene Glycol 3350* 17 gm PO DAILY PRN packet 02/10/19 08/01/19 Rx [Miralax*] Mirtazapine TAB* [Remeron TAB*] 30 mg PO QPM #60 tab 05/23/19 08/01/19 Rx Senna TAB 8.6 mg* [Senokot 8.6 mg 2 tab PO BEDTIME PRN #60 tab 05/23/19 Rx TAB*] clonazePAM TAB(*) [Klonopin TAB(*)] 1 mg PO BEDTIME #30 tab MDD 1 tab 05/23/19 08/01/19 Rx ARIPiprazole TAB* [Abilify TAB*] 10 mg PO DAILY #60 tab 05/24/19 08/01/19 Rx Docusate CAP* [Colace Cap*] 100 mg PO BID PRN 06/24/19 08/01/19 History Multivitamins/Minerals TAB* 1 tab PO DAILY 08/01/19 08/01/19 History [Theragran/minerals TAB*] diPHENhydraMINE PO* [Benadryl PO 25 mg PO Q8HR 08/01/19 08/01/19 History 25 MG TAB*] Positive: Anxious, Other - paranoid, aggitated All Other Systems Reviewed And Are Negative: No Physical Exam - Summary Physical Exam Summary: This pt is a level 5 caveat due to her AMS. General: Well-developed, Well-nourished unkempt female with purposeful movements and perpetual gum chewing. No acute distress. HEENT: Normocephalic, Atraumatic. Eyes: Conjuctiva normal, PERRL. Ears: TMs within normal limits. Nares: (-) discharge, (-) erythema. Oropharynx: Clear, mucous membranes moist, (-) exudates. Neck: Soft, FROM, (-) lymphadenopathy, (-) thyromegaly, (-) JVD. Cardiovascular: Normal sinus rhythm, (-) murmur. Lungs: Clear to auscultation bilaterally (-) wheezes, (-) rales, (-) rhonchi. Abdomen: Soft, non-tender, non-distended, (-) organomegaly, normal bowel sounds. Back: (-) CVA tenderness Extremities: No edema. Skin: Warm, dry, (-) rash. Neuro: Alert and oriented x3, no focal deficits. Psychiatric: mildly agitated, very flat affect, withdrawn, poor eye contact. Triage Information Reviewed: Yes Vital Signs On Initial Exam: Initial Vitals Temp Pulse Resp BP Pulse Ox 99.4 F 98 18 120/76 98 09/16/19 18:39 09/16/19 18:39 09/16/19 18:39 09/16/19 18:39 09/16/19 18:39 Vital Signs Reviewed: Yes Completion Of Physical Exam Limited Due To: Altered Mental Status Procedures - Sedation Patient Received Moderate/Deep Sedation with Procedure: No Diagnostics - Vital Signs Vital Signs Temp Pulse Resp BP Pulse Ox 09/16/19 18:39 99.4 F 98 18 120/76 98 - Laboratory Lab Results: Lab Results 09/16/19 09/16/19 Range/Units 19:45 19:45 WBC 5.8 (3.5-10.8) 10^3/uL RBC 4.04 (3.70-4.87) 10^6 /uL Hgb 12.3 (12.0-16.0) g/dL Hct 36 (35-47) % MCV 90 (80-97) fL MCH 30 (27-31) pg MCHC 34 (31-36) g/dL RDW 14 (10-15) % Plt Count 288 (150-450) 10^3/uL MPV 7.4 (7.4-10.4) fL Neut % (Auto) 74.7 % Lymph % (Auto) 16.1 % [place] % (Auto) 7.3 % Eos % (Auto) 0.8 % Baso % (Auto) 1.1 % Absolute Neuts (auto) 4.3 (1.5-7.7) 10^3/ul Absolute Lymphs (auto) 0.9 L (1.0-4.8) 10^3/ul Absolute Monos (auto) 0.4 (0-0.8) 10^3/ul Absolute Eos (auto) 0.0 (0-0.6) 10^3/ul Absolute Basos (auto) 0.1 (0-0.2) 10^3/ul Absolute Nucleated RBC 0.0 10^3/ul Nucleated RBC % 0.0 Sodium 139 (135-145) mmol/L Potassium 4.0 (3.5-5.0) mmol/L Chloride 103 (101-111) mmol/L Carbon Dioxide 30 (22-32) mmol/L Anion Gap 6 (2-11) mmol/L BUN 18 (6-24) mg/dL Creatinine 0.70 (0.51-0.95) mg/dL Est GFR ( Amer) 102.6 (>60) Est GFR (Non-Af Amer) 84.8 (>60) BUN/Creatinine Ratio 25.7 H (8-20) Glucose 103 H (70-100) mg/dL Calcium 9.3 (8.6-10.3) mg/dL Total Bilirubin 0.80 (0.2-1.0) mg/dL AST 15 (13-39) U/L ALT 14 (7-52) U/L Alkaline Phosphatase 49 (34-104) U/L Total Protein 6.3 L (6.4-8.9) g/dL Albumin 4.0 (3.2-5.2) g/dL Globulin 2.3 (2-4) g/dL Albumin/Globulin Ratio 1.7 (1-3) TSH 0.84 (0.34-5.60) mcIU/mL Salicylates < 2.50 (<30) mg/dL Acetaminophen < 15 mcg/mL Serum Alcohol < 10 (<10) mg/dL Result Diagrams: 09/16/19 19:45 09/16/19 19:45 Lab Statement: Any lab studies that have been ordered have been reviewed, and results considered in the medical decision making process. Altered Mental Statu Course/Dx - Diagnoses Provider Diagnoses: Depression - Provider Notifications Discussed Care Of Patient With: Bertin Ulrich Time Discussed With Above Provider: 03:32 Instructed by Provider To: Admit As Inpatient - voluntary Admit/Transition Orders Completed By ED Provider: Yes Discharge ED - Sign-Out/Discharge Documenting (check all that apply): Patient Departure - admitted voluntarily - Discharge Plan Condition: Stable [place] [facility] [place] Disposition and Condition Condition: STABLE Disposition: Psychiatric Facility [facility] - Attestation Statements Document Initiated by Ranjanaibe: Yes Documenting Scribe: Dex Robbins Provider For Whom Scribe is Documenting (Include Credential): Radha Pinon MD Scribe Attestation: Dex Weinstein, scribed for Radha Pinon MD on 09/17/19 at 2028. Scribe Documentation Reviewed: Yes Provider Attestation: The documentation as recorded by the Dex ritchie accurately reflects the service I personally performed and the decisions made by , Radha Pinon MD Status of Scribe Document: Viewed
[2019-09-16 20:56] LABS: Urine Appearance Cloudy; Urine Bilirubin Negative (Negative); Urine Blood 1+ (Negative); Urine Color Amber; Urine Glucose 1+(50 mg/dL) (Negative); Urine Ketones Trace (Negative); Urine Nitrite Negative (Negative); Urine Protein 1+(30 mg/dL) (Negative); Urine Specific Gravity 1.019 (1.010-1.030); Urine Urobilinogen Positive (Negative)
[2019-09-16 20:59] LABS: Urine Bacteria Absent (Absent); Urine Red Blood Cell 3+(>10/hpf) (Absent); Urine White Blood Cell 1+(6-10/hpf) (Absent)
[2019-09-16 21:15] LABS: Urine Benzodiazepine Screen None Detected (None Detect); Urine Opiates Screen None Detected (None Detect)
[2019-09-17] MEDS ORDERED: Al Hydrox/Mg Hydrox/Simet LIQ* 30 ML UDC PO PRN (07:31)
[2019-09-17] MEDS: Vitamin THERAPEUTIC TAB PO SCH (10:19)
[2019-09-17] MEDS ORDERED: Docusate CAP* 100 MG PO PRN (17:54)
[2019-09-17] MEDS ORDERED: Polyethylene Glycol 3350* 17 GM PACKET PO PRN (17:54)
[2019-09-17] MEDS ORDERED: Artificial Tears* 15 ML BTL BOTH EYES PRN (17:54)
[2019-09-17] MEDS ORDERED: Senna TAB 8.6 mg* TAB PO PRN (17:54)
[2019-09-17] MEDS ORDERED: Acetaminophen TAB* 325 MG PO PRN (17:57)
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
[2019-09-17] MEDS: clonazePAM TAB(*) 1 MG PO SCH (20:11)
[2019-09-17] MEDS: Mirtazapine TAB* 15 MG PO SCH (20:12)
[2019-09-18] MEDS ORDERED: Multivitamins/Minerals TAB PO SCH (09:00)
[2019-09-18] MEDS: Vitamin THERAPEUTIC TAB PO SCH (09:00)
[2019-09-18] MEDS: ARIPiprazole TAB* 5 MG PO SCH (09:00)
[2019-09-18] MEDS: clonazePAM TAB(*) 1 MG PO SCH (20:00)
[2019-09-18] MEDS: Mirtazapine TAB* 15 MG PO SCH (20:00)
[2019-09-19] MEDS: ARIPiprazole TAB* 5 MG PO SCH (08:17)
[2019-09-19] MEDS: Vitamin THERAPEUTIC TAB PO SCH ×2 (08:18→08:20)
--- NOTE | 2019-09-19 13:33 | PN ---
Subjective - Subjective Date of Service: 09/19/19 Service Type: [id number] Hosp care 25 min moderate complexity Subjective: Patient reports she stopped taking medications approx one week prior to hospitalization. She states "the box was empty and I ignored it." She endorses denial that the above is a factor for change in behavior at home. She states that her daughter simply doesn't like some of the things she does. Patient is able to name medications she took today. Spoke with patient's daughter, Dominique along with Leann Brito LMSW. Dominique reports change in her mother's presentation approx 3 weeks ago that included increased paranoia, isolation and decreased ADLs. She states that she did not notice a further change in the last week when her mother was refusing medications. Dominique states that Thalia really hasn't been the same since prior to admission to [facility] and that it was prior to this that she believes Thalia had the optimal medication regimen that included clomipramine. She expresses concern that depressive symptoms are linked to Thalia's behaviors. Dominique states they met with [facility] but Thalia was not appropriate for services. She states that she has been expecting a call from [facility] in [place] but has not received one. Senior Principal Process Engineer encourages her to contact [facility] and [facility] to inquire about half-way placement options , waitlists, etc. Objective - General Observations Appearance: Neat Stature: Thin Posture: WNL Eye Contact: Intense Behavior/Activity: Slowed - Interaction Observations Attitude Towards Examiner: Cooperative Stated Mood: Irritable Affect: Restricted Speech Pattern/Tone: Appropriate Thought Process: Circumstantial, Impoverished Thought Content: Preoccupation/Ruminations, Self-Deprecatory Hallucination Type: Denies Delusion Type: Denies - Cognitive Function Orientation: A&O x 4 Level of Consciousness: Alert Cognition: Impaired Memory, Impaired Attention/Concentration Estimated Intelligence: Borderline Range Insight: Mostly Blames Others for Problems Judgment Within Normal Limits: No Ability to Make Reasonable Decisions: Serverely Impaired - Medication Compliance Cooperative with Inpatient Medication Regimen: Yes - Group Participation Participates in Group Activities: Partial Assessment - Assessment Merits Inpatient Hospitalization: For Immediate Safety, For Stabilization Inpatient DSM-V Dx: F33.3 Clinical Impression: 64yo wf, , domiciled, mentally disabled with history of major depressive d/o with psychotic features, PTSD, OCD and poor adherence to medications who was referred by her daughter due to disorganized behavior in the home. She merits hospitalization for immediate safety and stabilization. Plan - Plan Treatment Plan: Name: THALIA SCHMIDT Birthdate: 1955 [id number] continue acute intensive psychiatric treatment. reinstate outpatient medications. trial one time dose of nitrofurantoin to assess for UTI treatment. collaborate with outpatient providers and family. Continued Medication Management: Continue Outpt Medication Medications: Current Medications Acetaminophen (Tylenol Tab*) 650 mg PO Q4H PRN PRN Reason: for pain; or Temp >101 F Al Hydrox/Mg Hydrox/Simethicone (Maalox Plus*) 30 ml PO Q4H PRN PRN Reason: INDIGESTION Aripiprazole (Abilify Tab*) 10 mg PO DAILY [facility] Last Admin: 09/19/19 08:17 Dose: 10 mg Clonazepam (Klonopin Tab(*)) 1 mg PO BEDTIME [facility] Last Admin: 09/18/19 20:00 Dose: 1 mg Docusate Sodium (Colace Cap*) 100 mg PO BID PRN PRN Reason: CONSTIPATION Mirtazapine (Remeron Tab*) 30 mg PO DAILY@2100 [facility] Last Admin: 09/18/19 20:00 Dose: 30 mg Multivitamins (Theragran Tab*) 1 tab PO DAILY [facility] Last Admin: 09/19/19 08:20 Dose: Not Given Polyethylene Glycol/Electrolytes (Miralax*) 17 gm PO DAILY PRN PRN Reason: CONSTIPATION Polyvinyl Alcohol (Polyvinyl Alcohol 1.4% Opth*) 2 drop BOTH EYES BID PRN PRN Reason: DRY EYE Senna (Senokot 8.6 Mg Tab*) 2 tab PO BEDTIME PRN PRN Reason: CONSTIPATION - Discharge Plan Discharge Plan: Inpatient Hospitalization Outpatient Program: [facility]
[2019-09-19] MEDS ORDERED: Nitrofurantoin Macrocrystals* 100 MG CAP PO ONE (15:03)
[2019-09-19] MEDS: Mirtazapine TAB* 15 MG PO SCH (20:03)
[2019-09-19] MEDS: clonazePAM TAB(*) 1 MG PO SCH (20:03)
[2019-09-20] MEDS: ARIPiprazole TAB* 5 MG PO SCH (08:26)
[2019-09-20] MEDS: Vitamin THERAPEUTIC TAB PO SCH (08:27)
[2019-09-20] MEDS: Nitrofurantoin Macrocrystals* 50 MG CAP PO SCH ×2 (12:38→20:11)
--- NOTE | 2019-09-20 16:35 | PN ---
Subjective - Subjective Date of Service: 09/20/19 Service Type: [id number] Hosp care 25 min moderate complexity Subjective: Patient is present in milieu and keeping herself busy with word finds and recreation activities. She denies effects from antibiotic and states understanding of recommended duration of treatment. She is pleasant and smiles at times during conversation. She endorses self-deprecating thoughts and is receptive to reframing. Patient encouraged to play board or card game with daughter during visits. Certified Personal Finance Counselor spoke with Ananya from [facility] team in regards to her screening. 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 Objective - General Observations Appearance: Well Groomed Stature: Thin Posture: WNL Eye Contact: Average Behavior/Activity: WNL - Interaction Observations Attitude Towards Examiner: Cooperative Stated Mood: Euthymic Affect: Full Speech Pattern/Tone: Clear, Appropriate, Normal Volume Thought Process: Coherent, Circumstantial, Impoverished Perception: WNL Thought Content: Self-Deprecatory Hallucination Type: Denies Delusion Type: Denies - Cognitive Function Orientation: A&O x 4 Level of Consciousness: Alert Cognition: Impaired Attention/Concentration Estimated Intelligence: Borderline Range Insight: Difficulty Acknowledging Presence of Psyciatric Problems Judgment Within Normal Limits: No Ability to Make Reasonable Decisions: Moderately Impaired - Medication Compliance Cooperative with Inpatient Medication Regimen: Yes - Group Participation Participates in Group Activities: Partial Assessment - Assessment Merits Inpatient Hospitalization: For Immediate Safety, For Stabilization Inpatient DSM-V Dx: F33.3 Clinical Impression: 64yo wf, , domiciled, mentally disabled with history of major depressive d/o with psychotic features, PTSD, OCD and poor adherence to medications who was referred by her daughter due to disorganized behavior in the home. She merits hospitalization for immediate safety and stabilization. Plan - Plan Treatment Plan: Name: SHANNAN SCHMIDT Birthdate: 1955 [id number] continue acute intensive psychiatric treatment. may decrease to q30min and allow staff pass. reinstate outpatient medications. continue macrobid for UTI. collaborate with outpatient providers and family. Continued Medication Management: Start Medication Medications: Current Medications Acetaminophen (Tylenol Tab*) 650 mg PO Q4H PRN PRN Reason: for pain; or Temp >101 F Al Hydrox/Mg Hydrox/Simethicone (Maalox Plus*) 30 ml PO Q4H PRN PRN Reason: INDIGESTION Aripiprazole (Abilify Tab*) 10 mg PO DAILY [facility] Last Admin: 09/20/19 08:26 Dose: 10 mg Clonazepam (Klonopin Tab(*)) 1 mg PO BEDTIME [facility] Last Admin: 09/19/19 20:03 Dose: 1 mg Docusate Sodium (Colace Cap*) 100 mg PO BID PRN PRN Reason: CONSTIPATION Mirtazapine (Remeron Tab*) 30 mg PO DAILY@2100 [facility] Last Admin: 09/19/19 20:03 Dose: 30 mg Multivitamins (Theragran Tab*) 1 tab PO DAILY [facility] Last Admin: 09/20/19 08:27 Dose: Not Given Nitrofurantoin Macrocrystals (Macrodantin*) 100 mg PO BID [facility] Last Admin: 09/20/19 12:38 Dose: 100 mg Polyethylene Glycol/Electrolytes (Miralax*) 17 gm PO DAILY PRN PRN Reason: CONSTIPATION Polyvinyl Alcohol (Polyvinyl Alcohol 1.4% Opth*) 2 drop BOTH EYES BID PRN PRN Reason: DRY EYE Senna (Senokot 8.6 Mg Tab*) 2 tab PO BEDTIME PRN PRN Reason: CONSTIPATION - Discharge Plan Discharge Plan: Inpatient Hospitalization
[2019-09-20] MEDS: clonazePAM TAB(*) 1 MG PO SCH (20:10)
[2019-09-20] MEDS: Mirtazapine TAB* 15 MG PO SCH (20:11)
[2019-09-21] MEDS: ARIPiprazole TAB* 5 MG PO SCH (08:41)
[2019-09-21] MEDS: Vitamin THERAPEUTIC TAB PO SCH ×2 (08:41→08:45)
[2019-09-21] MEDS: Nitrofurantoin Macrocrystals* 50 MG CAP PO SCH ×2 (08:42→20:01)
--- NOTE | 2019-09-21 14:24 | PN ---
Subjective - Subjective Date of Service: 09/21/19 Service Type: [id number] Hosp care 15 min low complexity Subjective: Thalia reports she used to do many things that she cannot anymore due to loss of hearing and anhedonia, such as knitting, brant and painting. She continues to make statements indicative of low self esteem and learned helplessness. She reports that her sisters have called and offered her to live with them. When asked what she thinks or feels about this, she states "I think Dominique would like to have just her and kids at the house." She states she has lived with her sister Chloe in the past but avoids answering questions about her own desires. Objective - General Observations Appearance: Neat Stature: Thin Posture: WNL Eye Contact: Average Behavior/Activity: WNL - Interaction Observations Attitude Towards Examiner: Cooperative Stated Mood: Euthymic Affect: Bright Speech Pattern/Tone: Clear, Appropriate, Normal Volume Thought Process: Circumstantial, Impoverished Perception: WNL Thought Content: Depressive, Self-Deprecatory Thought Process: Lethality: Passive Wish Hallucination Type: Denies Delusion Type: Denies - Cognitive Function Orientation: A&O x 4 Level of Consciousness: Alert Cognition: Impaired Attention/Concentration Estimated Intelligence: Normal Insight: WNL Judgment Within Normal Limits: No Ability to Make Reasonable Decisions: Moderately Impaired - Medication Compliance Cooperative with Inpatient Medication Regimen: Yes - Group Participation Participates in Group Activities: Partial Assessment - Assessment Merits Inpatient Hospitalization: For Immediate Safety, For Stabilization Inpatient DSM-V Dx: F33.3 Clinical Impression: 64yo wf, , domiciled, mentally disabled with history of major depressive d/o with psychotic features, PTSD, OCD and poor adherence to medications who was referred by her daughter due to disorganized behavior in the home. She merits hospitalization for immediate safety and stabilization. Plan - Plan Treatment Plan: Name: THALIA SCHMIDT Birthdate: 1955 [id number] continue acute intensive psychiatric treatment. may decrease to q30min and allow staff pass. reinstate outpatient medications. continue macrobid for UTI. collaborate with outpatient providers and family. Continued Medication Management: Continue Outpt Medication Medications: Current Medications Acetaminophen (Tylenol Tab*) 650 mg PO Q4H PRN PRN Reason: for pain; or Temp >101 F Al Hydrox/Mg Hydrox/Simethicone (Maalox Plus*) 30 ml PO Q4H PRN PRN Reason: INDIGESTION Aripiprazole (Abilify Tab*) 10 mg PO DAILY [facility] Last Admin: 09/21/19 08:41 Dose: 10 mg Clonazepam (Klonopin Tab(*)) 1 mg PO BEDTIME [facility] Last Admin: 09/20/19 20:10 Dose: 1 mg Docusate Sodium (Colace Cap*) 100 mg PO BID PRN PRN Reason: CONSTIPATION Mirtazapine (Remeron Tab*) 30 mg PO DAILY@2100 [facility] Last Admin: 09/20/19 20:11 Dose: 30 mg Multivitamins (Theragran Tab*) 1 tab PO DAILY [facility] Last Admin: 09/21/19 08:45 Dose: Not Given Nitrofurantoin Macrocrystals (Macrodantin*) 100 mg PO BID [facility] Last Admin: 09/21/19 08:42 Dose: 100 mg Polyethylene Glycol/Electrolytes (Miralax*) 17 gm PO DAILY PRN PRN Reason: CONSTIPATION Polyvinyl Alcohol (Polyvinyl Alcohol 1.4% Opth*) 2 drop BOTH EYES BID PRN PRN Reason: DRY EYE Senna (Senokot 8.6 Mg Tab*) 2 tab PO BEDTIME PRN PRN Reason: CONSTIPATION - Discharge Plan Discharge Plan: Inpatient Hospitalization Outpatient Program: [facility]
[2019-09-21] MEDS: Mirtazapine TAB* 15 MG PO SCH (20:00)
[2019-09-21] MEDS: clonazePAM TAB(*) 1 MG PO SCH (20:00)
[2019-09-22] MEDS: ARIPiprazole TAB* 5 MG PO SCH (08:18)
[2019-09-22] MEDS: Vitamin THERAPEUTIC TAB PO SCH (08:19)
[2019-09-22] MEDS: Nitrofurantoin Macrocrystals* 50 MG CAP PO SCH ×2 (08:19→20:05)
--- NOTE | 2019-09-22 14:39 | PN ---
Subjective - Subjective Date of Service: 09/22/19 Service Type: [id number] Hosp care 15 min low complexity Subjective: patient endorses mildly depressed mood and states she is "frustrated" with inability to participate in activities r/t hearing loss and poor reading/ writing abilities. She describes this as especially frustrating because she was able to do the above in the past. patient is able to identify decrease in anxiety and lack of panic attacks. Objective - General Observations Appearance: Neat Stature: Thin Posture: WNL Eye Contact: Average Behavior/Activity: WNL - Interaction Observations Attitude Towards Examiner: Cooperative Stated Mood: Euthymic - "frustrated" Affect: Full Speech Pattern/Tone: Clear, Appropriate, Normal Volume Thought Process: Coherent, Impoverished Thought Content: Depressive, Self-Deprecatory Hallucination Type: None Delusion Type: None - Cognitive Function Orientation: A&O x 4 Level of Consciousness: Alert Cognition: Impaired Reading, Impaired Writing Estimated Intelligence: Normal Insight: WNL Judgment Within Normal Limits: Yes - Medication Compliance Cooperative with Inpatient Medication Regimen: Yes - Group Participation Participates in Group Activities: Yes Assessment - Assessment Merits Inpatient Hospitalization: For Immediate Safety, For Stabilization Inpatient DSM-V Dx: F33.3 Clinical Impression: 64yo wf, , domiciled, mentally disabled with history of major depressive d/o with psychotic features, PTSD, OCD and poor adherence to medications who was referred by her daughter due to disorganized behavior in the home. She merits hospitalization for immediate safety and stabilization. She is stabilizing in this structured setting. Plan - Plan Treatment Plan: Name: SHANNAN SCHMIDT Birthdate: 1955 [id number] continue acute intensive psychiatric treatment. may decrease to q30min and allow staff pass. reinstate outpatient medications. continue macrobid for UTI. discharge meeting with daughter 09/23/19 Medications: Current Medications Acetaminophen (Tylenol Tab*) 650 mg PO Q4H PRN PRN Reason: for pain; or Temp >101 F Al Hydrox/Mg Hydrox/Simethicone (Maalox Plus*) 30 ml PO Q4H PRN PRN Reason: INDIGESTION Aripiprazole (Abilify Tab*) 10 mg PO DAILY [facility] Last Admin: 09/22/19 08:18 Dose: 10 mg Clonazepam (Klonopin Tab(*)) 1 mg PO BEDTIME [facility] Last Admin: 09/21/19 20:00 Dose: 1 mg Docusate Sodium (Colace Cap*) 100 mg PO BID PRN PRN Reason: CONSTIPATION Mirtazapine (Remeron Tab*) 30 mg PO DAILY@2100 [facility] Last Admin: 09/21/19 20:00 Dose: 30 mg Multivitamins (Theragran Tab*) 1 tab PO DAILY [facility] Last Admin: 09/22/19 08:19 Dose: Not Given Nitrofurantoin Macrocrystals (Macrodantin*) 100 mg PO BID [facility] Last Admin: 09/22/19 08:19 Dose: 100 mg Polyethylene Glycol/Electrolytes (Miralax*) 17 gm PO DAILY PRN PRN Reason: CONSTIPATION Polyvinyl Alcohol (Polyvinyl Alcohol 1.4% Opth*) 2 drop BOTH EYES BID PRN PRN Reason: DRY EYE Senna (Senokot 8.6 Mg Tab*) 2 tab PO BEDTIME PRN PRN Reason: CONSTIPATION - Discharge Plan Discharge Plan: Outpatient Follow Up Outpatient Program: [facility]
[2019-09-22] MEDS: clonazePAM TAB(*) 1 MG PO SCH (20:04)
[2019-09-22] MEDS: Mirtazapine TAB* 15 MG PO SCH (20:04)
[2019-09-23] MEDS: ARIPiprazole TAB* 5 MG PO SCH (08:18)
[2019-09-23] MEDS: Nitrofurantoin Macrocrystals* 50 MG CAP PO SCH (08:19)
[2019-09-23] MEDS: Vitamin THERAPEUTIC TAB PO SCH (08:21)
[2019-09-23 09:36] VITALS: BP 104/68
--- NOTE | 2019-09-27 00:11 | DS ---
CC: [facility]; Dr. Barbara Lomeli * DISCHARGE SUMMARY: DATE OF ADMISSION: 09/17/19 DATE OF DISCHARGE: 09/23/19 SUPERVISING PHYSICIAN: Kelvin Mccloud MD * (dictated by Leann Murphy NP). DIAGNOSES: 1. Major depressive disorder, recurrent, with psychotic features. 2. Urinary tract infection. CONDITION AT THE TIME OF DISCHARGE: Improved. The patient has been euthymic with bright affect. She has been participating in unit activities to the best of her ability with consideration given for hard of hearing and decreased ability to read and write. The patient has been safe on all checks. She has been participating in meals. She has been sleeping well. She was noted to have urinary tract infection and has tolerated re-trial of Macrobid. She no longer meets criteria for having an allergy to nitrofurantoin. The patient has denied suicidal ideation, urges for self harm. She has been safe and in behavioral control. Due to the obligation to treat in less restrictive setting , the patient is discharged to home. MENTAL STATUS EXAM: Thalia is a petit thin-framed female who appears stated age. She is well groomed, neatly dressed in her own clothing. She is alert and oriented x3. Eye contact is good. Speech is soft, articulate, and spontaneous. Concentration is good. Memory 3/3. Mood is anxious with full range of affect. No abnormal psychomotor activity noted with the exception of during a family meeting when she moved her legs often and rhythmically. Thought process is circumstantial, coherent. Thought content is negative for SI , HI, , or passive wish. She denies auditory or visual hallucinations. There are no perceptual disturbances noted. Insight and judgment are fair. Fund of knowledge is adequate. INSTRUCTIONS GIVEN TO THE PATIENT: A. Medications: We added nitrofurantoin 100 mg p.o. b.i.d. for 2 more days, plus the evening of discharge. All of her other medications were unchanged and remain as below. 1. Aripiprazole 10 mg p.o. daily. 2. Refresh eye drops 2 drops both eyes b.i.d. 3. Clonazepam 1 mg p.o. q.h.s. 4. Docusate 100 mg p.o. b.i.d. p.r.n. 5. Mirtazapine 30 mg p.o. q. evening. 6. MiraLAX 17 grams p.o. daily p.r.n. constipation. 7. Senna tab 2 tabs p.o. q.h.s. p.r.n. constipation. B. Diet: Regular. C. Activity: Ambulation as tolerated. Tobacco cessation is not applicable. There are no pending labs or diagnostic studies. D. Followup care: The patient was referred back to [facility] with an appointment with Karen, her pony worker and with her primary care provider, Dr. Lomeli. E. Substance use: Followup is not applicable. HOSPITAL COURSE: Part A: Reason for Admission: The patient presented to the emergency department with her daughter because of worsening depressive symptoms and erratic behavior in the home. History of Present Illness: The patient is known to the Adult Inpatient Psychiatric Service from 4 previous inpatient admissions. She has diagnosis of major depressive disorder, recurrent, severe with psychotic features and obsessive compulsion disorder. Her daughter drove her in because of concerns that Thalia has become increasingly paranoid, had not showered in days, and had not been able to take care of herself effectively. Reportedly, she had been peering out of cracked doors and waking up her grandson, standing over his bed and saying, "what did you say to me!" Thalia's daughter states that she had not taken her medications since 09/11/19 and that she becomes agitated when given her pills and had been refusing them. The daughter adds that Thalia was already acting this way while she was taking her medications and her condition worsened since 08/01/19. Thalia shrugs her shoulders when asked if she has felt more depressed. She admits she had been staying in her room for long periods of time , that she had been eating less, and she believes she has lost weight. She describes an incident when she was standing on top of the stairs looking down and her daughter became concerned that she was going to voluntarily hurt herself. The patient denies this was ever her intent. Part B: Psychiatric treatment rendered: The patient was admitted to Adult Behavioral Services Unit on involuntary status. Code status was full. She was placed on 15-minute checks for safety. She presented with a MOLST form that denoted DNI. Due to psychiatric hospitalization, the patient remained on full code while hospitalized. We continued outpatient regimen medications, did not change any of these. She tolerated them well. She was noted to have Aerococcus in her urine. We did a trial dose of nitrofurantoin. The patient has a history of many reported allergies. She also has a history of somatization disorder and fear of medication side effect with some placebo side effects as well. She tolerated nitrofurantoin very well and we continued the course. The patient was pleasant and in behavioral control. She reported stopping taking her medications because the box was empty and she ignored it. The patient was able to name the medications that she took while on the unit. This marketing underwriter and nursing home social worker, EB Sylvester, spoke with the patient's daughter and discussed timeline of events. Erin states that they met with the ACT team but Thalia was not appropriate for services. Erin states that she has been expecting a call from [facility] [place] but has not received one. Incoming Inspector encouraged Erin to look into office of the Aging and Adult Protective Services to enquire about her questions in regards long-term placement options and resources for an aging person. On the unit, Thalia was present in milieu and kept herself busy with word finds and other recreation activities. She was pleasant and smiled at times during conversation. She endorsed self-deprecating thoughts and was receptive to reframing. She reported that she and her daughter often argued. She was encouraged to play a board or card game with daughter during visits. I spoke with the providers from the ACT team in regards to Thalia's screening. They reported that the patient was unable to identify goals or participate in conversation due to selective mutism. They also identified that the patient would be better served in a living situation with more structure and activities for Thalia's age and possible declining cognition. In the past, we have attempted further psychometric and IQ testing but due to the patient's hearing loss, she was unable to participate with psychologist. The patient talked with her sisters who live far away via phone. They discussed the possibility of her coming to live with them. When I asked the patient about her thoughts and feelings, she stated, I do not know and that "I think Erin would like to have just her and kids at the house." The patient was not observed to have any abnormal activity or behavior. She reported frustration in regards to not being able to participate in activities related to hearing loss and for reading and writing abilities. She reports a decrease in anxiety and lack of panic attacks. We met with the patient and her daughter at the time of discharge. At the beginning of the meeting, Thalia was standing in the room pacing about and she was encouraged to sit down. Throughout the meeting she moved her legs up and down in a rhythmic manner. Regarding the pacing that she had been doing at home it is my estimation that this related to anxiety and her familial conflict. nursing home social worker and this marketing underwriter gave Erin lots of suggestions in regards to ongoing interactions with Thalia. It seems as though there is much frustration in that Thalia has some borderline personality disorder behaviors as well as difficulty with interpersonal conflict in the home. We reiterated that Thalia would be better served in a situation that has structure and routine as well as age appropriate tasks. Erin states that she will reach out to office of the aging and look into the long-term housing options. We also encouraged Thalia to participate in family routines such as dinner or simply being present in the same room with other family members as she was here on the unit with other patients. LEANN MURPHY NP [id number]/[facility] #: [id number] JENNIFER
== END 2019-09-23 15:40 | disposition home or self-care (01) | DRG 885 ==
LOC: ED 18:28 → BSU 09-17 04:55
PROVIDERS: ADMIT Psychiatry & Neurology Psychiatry; ATTEND Psychiatry & Neurology Psychiatry
DX: F33.3 Major depressive disorder, recurrent, severe with psychotic symptoms (principal); F42.9 Obsessive-compulsive disorder, unspecified; Z62.810 Personal history of physical and sexual abuse in childhood; K58.9 Irritable bowel syndrome, unspecified; M81.0 Age-related osteoporosis without current pathological fracture; H91.92 Unspecified hearing loss, left ear; G31.84 Mild cognitive impairment of uncertain or unknown etiology; Z79.899 Other long term (current) drug therapy; Z88.6 Allergy status to analgesic agent; Z88.1 Allergy status to other antibiotic agents; Z88.5 Allergy status to narcotic agent; Z88.0 Allergy status to penicillin; Z88.2 Allergy status to sulfonamides; Z88.8 Allergy status to other drugs, medicaments and biological substances
CPT/HCPCS: 36415; 80053; 80061; 80307; 80320; 80329; 81003; 81015; 83036; 84443; 85025; 87077; 87086; 99222; 99231; 99232; 99238; 99284; A9270-GY; G0480